=== PATIENT | female | born 1950 | race Caucasian/White ===

== ENCOUNTER 2019-12-27 17:14 | Inpatient (IN) | payer MEDICARE, MEDICAID ==
[~2019-12-27] VITALS: Ht 157.5 cm; Wt 62.2 kg
--- NOTE | 2019-12-27 17:54 | EKG ---
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
--- NOTE | 2019-12-27 17:54 | PHYS DOC ---
Past History Past Medical History: Bipolar, Dementia, Other Additional Past Medical Histor: schizzoaffective disorder Past Surgical History: Appendectomy, Cholecystectomy, Other Additional Past Surgical Histo: unknown Alcohol Use: None Adult General Chief Complaint Chief Complaint: PSYCH EVALUATION.." I have chest pain.. and I am ... I don't know for sure when I am due to have the baby...".. " They did not feed me.. I need to eat something.. now." HPI HPI Patient is a 69 year old female who presents with above hx and complaints of being with chest pain on Lt. side. Pt. relates pain on Lt. is because of her . Pt. relates nothing make the Lt chest wall pain better. . Pt. sent to ED for medical clearance before admit to [facility]. . Pt. per family and care takers pt. has become more difficult to redirect, having delusions and hallucinations, aggressive hostile and combative behaviors. Pt. recently having delusions and hallucinations that she is , seeing " spirts", and that voices telling her what to do. Pt reports that she just had a miscarriage and that her sister ate the baby. Pt relates she is again. Patient has been a resident at [facility] in [facility] since 05/01/17. Pt. primary care is Dr. Radford. No history of falls. No history of travel. No history immunosuppression. Patient does have a history of dementia, bipolar disorder, anxiety, constipation, colonic polyps, insomnia and psychosis. Review of Systems Review of Systems Complaints she needs to eat. Constitutional: Denies fever or chills [] Eyes: Denies change in visual acuity, redness, or eye pain [] HENT: Denies nasal congestion or sore throat [] Respiratory: Denies cough or shortness of breath [] Cardiovascular: No additional information not addressed in HPI []Complaints of Lt sided chest pain related to the . GI: Denies abdominal pain, nausea, vomiting, bloody stools or diarrhea []Complaints of pain. : Denies dysuria or hematuria [] Musculoskeletal: Denies back pain or joint pain [] Integument: Denies rash or skin lesions [] Neurologic: Denies headache, focal weakness or sensory changes [] Endocrine: Denies polyuria or polydipsia [] All other systems were reviewed and found to be within normal limits, except as documented in this note. Family History Family History Not currently available Current Medications Current Medications Med list not sent to ED Allergies Allergies Allergies Coded Allergies Type Severity Reaction Last Updated Verified codeine Allergy Unknown 12/27/19 Yes nicotine Allergy Unknown 12/27/19 Yes Uncoded Allergies Type Severity Reaction Last Updated Verified benodene Allergy Unknown 12/27/19 Physical Exam Physical Exam Constitutional: no acute distress, non-toxic appearance. [] HENT: Normocephalic, atraumatic, bilateral external ears normal, oropharynx moist, no oral exudates, nose normal. Old scar top for Eyes: PERRLA, EOMI, conjunctiva normal, no discharge. [] Neck: Normal range of motion, no tenderness, supple, no stridor. [] Cardiovascular:Heart rate regular rhythm, no murmur [] Lungs & Thorax: Bilateral breath sounds clear to auscultation [] Abdomen: Bowel sounds normal, soft, no tenderness, no masses, no pulsatile masses. [Multiple old surgery scars Skin: Warm, dry, no erythema, no rash. [] Back: No tenderness, no CVA tenderness. [] Extremities: No tenderness, no cyanosis, no clubbing, ROM intact, no edema. No cording appreciated Neurologic: Alert and oriented X 3, normal motor function, normal sensory function, no focal deficits noted. [] Psychologic: Affect anxious, judgement obviously impaired,, mood normal. [] Current Patient Data Vital Signs Vital Signs Date Time Temp Pulse Resp B/P (MAP) Pulse Ox O2 Delivery O2 Flow Rate FiO2 12/27/19 17:33 98.3 83 18 124/77 (93 91 Room Air EKG EKG My interpretation of EKG shows a sinus rhythm at 82 bpm better. Does have a left axis deviation and findings consistent with anterior fascicular block. No findings of acute STEMI with contralateral changes.[] Radiology/Procedures Radiology/Procedures [][address] [address] IMAGING REPORT Signed PATIENT: VIVIEN MAN MACCOUNT: [id number] : 1950 LOCATION: [facility] AGE: 69 SEX: F EXAM STATUS: ADM IN ORD. PHYSICIAN: IKE JIMENEZ MD REASON: dyspnea PROCEDURE: PORTABLE CHEST 1V AP portable chest radiograph 12/27/2019 Clinical History: Shortness of breath. An AP erect portable digital radiograph of the chest was obtained. No previous studies are available for comparison. The patient is slightly rotated to the left. The cardiac silhouette is mildly enlarged. The thoracic aorta is tortuous. Atherosclerotic calcification of the thoracic aorta is seen. A 5 cm masslike opacity is seen involving the right lower lobe which could represent fluid within the fissure (pseudotumor) versus a solid mass lesion. This could be further evaluated with a CT scan of the chest with contrast. No acute pulmonary infiltrate is seen. No pneumothorax is noted. Small calcified left hilar lymph nodes are seen. There is diffuse osteopenia of the visualized bony structures. Degenerative changes are seen involving the thoracic spine and both shoulders. IMPRESSION: 5 cm masslike opacity is seen in the right lower lobe. Further evaluation with a CT scan of the chest with contrast is recommended. Electronically signed by: Juna Colbert MD (12/27/2019 9:39 PM) [id number] DICTATED AND SIGNED BY: JUAN COLBERT MD DATE: 12/27/192138 CC: LI MADDOX MD; IKE JIMENEZ MD; WILBER GARCIA DO ~ Course & Med Decision Making Course & Med Decision Making Pertinent Labs and Imaging studies reviewed. (See chart for details) Patient to be admitted to Dr. Maddox, consults to Dr. Nelson for medical issuses. CT Head and Chest pending at time of admission. Heart Score= 2 Impression: 1. Mental Status Change 2. Delusions and Hallucinations 3. Hx. Bipolar with Psychotic Features 4. Schizoaffective Disorder 5. Dementia 6. Hx recent Aggressive, Hostile and Combative Behaviors. 7. Chest Pain Lt. 8. Chest Mass Rt. lower- / middle lobe +/- 5cm [] Dragon Disclaimer Dragon Disclaimer This electronic medical record was generated, in whole or in part, using a voice recognition dictation system. Departure Departure: Disposition: 01 HOME/RESIDENCE PRIOR TO ADM Condition: STABLE Dragon Disclaimer This chart was dictated in whole or in part using Voice Recognition software in a busy, high-work load, and often noisy Emergency Department environment. It may contain unintended and wholly unrecognized errors or omissions. IKE JIMENEZ MD Dec 27, 2019 17:54
[2019-12-27 18:16] LABS: BASO # 0.1 x10^3/uL (0.0-0.2); BASO % 1 % (0-3); EOS # 0.2 x10^3/uL (0.0-0.7); EOS % 2 % (0-3); HEMATOCRIT 42.3 % (36.0-47.0); HEMOGLOBIN 13.7 g/dL (12.0-15.5); LYMPH % 29 % (24-48); MEAN CORPUSCULAR HEMOGLOBIN 30 pg (25-35); MEAN CORPUSCULAR HGB CONC 32 g/dL (31-37); MEAN CORPUSCULAR VOLUME 92 fL (79-100); MONO # 0.7 x10^3/uL (0.0-1.1); MONO % 10 % (0-9); NEUT % 58 % (31-73); PLATELET COUNT 298 x10^3/uL (140-400); RED BLOOD COUNT 4.59 x10^6/uL (3.50-5.40); RED CELL DISTRIBUTION WIDTH 15.1 % (11.5-14.5); WHITE BLOOD COUNT 6.9 x10^3/uL (4.0-11.0)
[2019-12-27 18:18] LABS: CALCIUM 9.3 mg/dL (8.5-10.1); CREATININE 0.5 mg/dL (0.6-1.0); GFR 122.3; POTASSIUM 3.8 mmol/L (3.5-5.1)
[2019-12-27 18:19] LABS: BARBITURATES NEG (NEG); BENZODIAZEPINES NEG (NEG); CANNABINOIDS NEG (NEG); COCAINE NEG (NEG); METHADONE NEG (NEG); OPIATES NEG (NEG); PHENCYCLIDINE NEG (NEG)
[2019-12-27 18:21] LABS: AMORPHOUS SEDIMENT,UR PRESENT /HPF; BACTERIA,URINE FEW /HPF (0-FEW); BILIRUBIN,URINE NEG (NEG); CLARITY,URINE CLOUDY; COLOR,URINE YELLOW; GLUCOSE,URINE NEG (NEG); NITRITE,URINE NEG (NEG); SQUAMOUS EPITHELIAL CELL,UR MOD /LPF
[2019-12-27 18:23] LABS: AMPHETAMINE/METHAMPHETAMINE NEG (NEG)
[2019-12-27 18:31] LABS: ALBUMIN 3.5 g/dL (3.4-5.0); DIRECT BILIRUBIN 0.1 mg/dL (0.0-0.2); MAGNESIUM 1.9 mg/dL (1.8-2.4); TOTAL BILIRUBIN 0.2 mg/dL (0.2-1.0); TOTAL PROTEIN 7.4 g/dL (6.4-8.2)
[2019-12-27] MEDS ORDERED: MULT-503 PO (18:50)
[2019-12-27] MEDS ORDERED: CHOL200078 PO (18:50)
[2019-12-27] MEDS ORDERED: BUPR-192 PO (18:50)
[2019-12-27] MEDS ORDERED: FLUO40CA2 PO (18:50)
[2019-12-27] MEDS ORDERED: MIDO10TA PO (18:50)
[2019-12-27] MEDS ORDERED: PALI6TAB3 PO (18:50)
[2019-12-27] MEDS ORDERED: PALI234D IM (18:50)
[2019-12-27] MEDS ORDERED: ACET325C6 PO (18:50)
[2019-12-27] MEDS ORDERED: ASPI-612 PO (18:50)
[2019-12-27] MEDS ORDERED: MAGN24003 PO (18:50)
[2019-12-27] MEDS ORDERED: THIA100T57 PO (18:50)
[2019-12-27] MEDS ORDERED: TEMA15CA PO (18:50)
[2019-12-27] MEDS ORDERED: DIVA500T4 PO (18:50)
[2019-12-27] MEDS ORDERED: OLAN10TA9 PO (18:50)
[2019-12-27 19:35] LABS: SEDIMENTATION RATE 18 (0-25)
[2019-12-27 19:53] VITALS: BP 120/78
[2019-12-27] MEDS ORDERED: MAGNESIUM HYDROXIDE 2,400 MG/30 ML ORAL.SUSP. PO PRN ×2 (20:00→22:30)
[2019-12-27] MEDS ORDERED: IOHEXOL 350 MG/ML 100 ML VIAL. IV ONE (20:15)
[2019-12-27] MEDS: TEMAZEPAM 15 MG CAPSULE PO SCH (20:28)
[2019-12-27] MEDS: OLANZapine 10 MG TABLET PO SCH (20:28)
[2019-12-27] MEDS: PALIPERIDONE 6 MG TAB.ER.24. PO SCH (20:28)
[2019-12-27] MEDS: DIVALPROEX ER 500 MG TAB.ER.24H PO SCH (20:29)
--- NOTE | 2019-12-27 21:36 | PDOC ---
Exam Note: Norris Note: Please also refer to the separate dictated note~for this date of service dictated separately. Discussed the patient with Nursing staff reviewed the chart.~Reviewed interim history and current functioning. Reviewed vital signs,~Labs/ Radiology~and current medications noted below. Continue current treatment with the changes noted in the dictated addendum note Assessment: Vital Signs/I&O: Vital Signs Date Time Temp Pulse Resp B/P (MAP) Pulse Ox O2 Delivery O2 Flow Rate FiO2 12/27/19 19:53 97.3 83 18 120/78 (92) 91 12/27/19 18:47 Room Air Labs: Laboratory Tests Test 12/27/19 17:45 12/27/19 18:00 Urine Collection Type Unknown Urine Color Yellow Urine Clarity Cloudy Urine pH 7.0 Urine Specific [place] 1.020 Urine Protein Neg (NEG-TRACE) Urine Glucose (UA) Neg mg/dL (NEG) Urine Ketones (Stick) Neg mg/dL (NEG) Urine Blood Neg (NEG) Urine Nitrite Neg (NEG) Urine Bilirubin Neg (NEG) Urine Urobilinogen Dipstick 1.0 mg/dL (0.2 mg/dL) Urine Leukocyte Esterase Neg (NEG) Urine RBC 1-2 /HPF (0-2) Urine WBC 1-4 /HPF (0-4) Urine Squamous Epithelial Cells Mod /LPF Urine Amorphous Sediment Present /HPF Urine Bacteria Few /HPF (0-FEW) Urine Opiates Screen Neg (NEG) Urine Methadone Screen Neg (NEG) Urine Barbiturates Neg (NEG) Urine Phencyclidine Screen Neg (NEG) Urine Amphetamine/Methamphetamine Neg (NEG) Urine Benzodiazepines Screen Neg (NEG) Urine Cocaine Screen Neg (NEG) Urine Cannabinoids Screen Neg (NEG) Urine Ethyl Alcohol Neg (NEG) White Blood Count 6.9 x10^3/uL (4.0-11.0) Red Blood Count 4.59 x10^6/uL (3.50-5.40) Hemoglobin 13.7 g/dL (12.0-15.5) Hematocrit 42.3 % (36.0-47.0) Mean Corpuscular Volume 92 fL (79-100) Mean Corpuscular Hemoglobin 30 pg (25-35) Mean Corpuscular Hemoglobin Concent 32 g/dL (31-37) Red Cell Distribution Width 15.1 % (11.5-14.5) H Platelet Count 298 x10^3/uL (140-400) Neutrophils (%) (Auto) 58 % (31-73) Lymphocytes (%) (Auto) 29 % (24-48) Monocytes (%) (Auto) 10 % (0-9) H Eosinophils (%) (Auto) 2 % (0-3) Basophils (%) (Auto) 1 % (0-3) Neutrophils # (Auto) 4.0 x10^3uL (1.8-7.7) Lymphocytes # (Auto) 2.0 x10^3/uL (1.0-4.8) Monocytes # (Auto) 0.7 x10^3/uL (0.0-1.1) Eosinophils # (Auto) 0.2 x10^3/uL (0.0-0.7) Basophils # (Auto) 0.1 x10^3/uL (0.0-0.2) Erythrocyte Sedimentation Rate 18 (0-25) Prothrombin Time 10.0 SEC (9.4-11.4) Prothrombin Time INR 1.0 (0.9-1.1) Activated Partial Thromboplast Time 28 SEC (23-33) D-Dimer (Radha) 0.47 mg/L (0.00-0.50) Sodium Level 142 mmol/L (136-145) Potassium Level 3.8 mmol/L (3.5-5.1) Chloride Level 105 mmol/L (98-107) Carbon Dioxide Level 26 mmol/L (21-32) Anion Gap 11 (6-14) Blood Urea Nitrogen 13 mg/dL (7-20) Creatinine 0.5 mg/dL (0.6-1.0) L Estimated GFR (Cockcroft-Gault) 122.3 Glucose Level 90 mg/dL (70-99) Calcium Level 9.3 mg/dL (8.5-10.1) Magnesium Level 1.9 mg/dL (1.8-2.4) Total Bilirubin 0.2 mg/dL (0.2-1.0) Direct Bilirubin 0.1 mg/dL (0.0-0.2) Aspartate Amino Transferase (AST) 17 U/L (15-37) Alanine Aminotransferase (ALT) 22 U/L (14-59) Alkaline Phosphatase 69 U/L (46-116) Creatine Kinase 56 U/L (26-192) Troponin I Quantitative < 0.017 ng/mL (0-0.055) MJ-Pvx-O-Type Natriuretic Peptide 76 pg/mL (0-124) Total Protein 7.4 g/dL (6.4-8.2) Albumin 3.5 g/dL (3.4-5.0) Lipase 174 U/L (73-393) Current Medications: Meds: Current Medications Medications (Trade) Dose Ordered Sig/Liv Route PRN Reason Start Time Stop Time Status Last Admin Dose Admin Divalproex Sodium (Depakote Er) 1,000 mg QHS PO 12/27/19 21:00 12/27/19 20:29 Temazepam (Restoril) 15 mg QHS PO 12/27/19 21:00 12/27/19 20:28 Paliperidone (Invega) 6 mg BID PO 12/27/19 21:00 12/27/19 20:28 Olanzapine (ZyPREXA) 10 mg BID PO 12/27/19 21:00 12/27/19 20:28 I have reviewed the current psychotropics carefully including drug interactions. Risk benefit ratio favors no change other than as noted in my dictated progress note. LI CABRERA MD Dec 27, 2019 21:36
--- NOTE | 2019-12-27 21:42 | RAD ---
AP portable chest radiograph 12/27/2019 Clinical History: Shortness of breath. An AP erect portable digital radiograph of the chest was obtained. No previous studies are available for comparison. The patient is slightly rotated to the left. The cardiac silhouette is mildly enlarged. The thoracic aorta is tortuous. Atherosclerotic calcification of the thoracic aorta is seen. A 5 cm masslike opacity is seen involving the right lower lobe which could represent fluid within the fissure (pseudotumor) versus a solid mass lesion. This could be further evaluated with a CT scan of the chest with contrast. No acute pulmonary infiltrate is seen. No pneumothorax is noted. Small calcified left hilar lymph nodes are seen. There is diffuse osteopenia of the visualized bony structures. Degenerative changes are seen involving the thoracic spine and both shoulders. IMPRESSION: 5 cm masslike opacity is seen in the right lower lobe. Further evaluation with a CT scan of the chest with contrast is recommended. Electronically signed by: Juan Colbert MD (12/27/2019 9:39 PM) [id number]
[2019-12-27] MEDS ORDERED: METHYL SALICYLATE/MENTHOL TOPICAL OINTMENT 57GM TUBE. TP PRN (22:30)
[2019-12-27] MEDS ORDERED: ACETAMINOPHEN 325 MG TABLET PO PRN (22:30)
[2019-12-28 05:36] VITALS: BP 118/75
[2019-12-28 08:29] LABS: BASO % 1 % (0-3); EOS # 0.2 x10^3/uL (0.0-0.7); EOS % 3 % (0-3); HEMATOCRIT 44.2 % (36.0-47.0); HEMOGLOBIN 14.4 g/dL (12.0-15.5); LYMPH # 1.7 x10^3/uL (1.0-4.8); LYMPH % 28 % (24-48); MEAN CORPUSCULAR HEMOGLOBIN 30 pg (25-35); MEAN CORPUSCULAR HGB CONC 33 g/dL (31-37); MEAN CORPUSCULAR VOLUME 92 fL (79-100); MONO # 0.6 x10^3/uL (0.0-1.1); MONO % 9 % (0-9); NEUT # 3.7 x10^3uL (1.8-7.7); NEUT % 60 % (31-73); PLATELET COUNT 285 x10^3/uL (140-400); RED CELL DISTRIBUTION WIDTH 15.1 % (11.5-14.5); WHITE BLOOD COUNT 6.1 x10^3/uL (4.0-11.0)
[2019-12-28] MEDS: ASPIRIN ENTERIC COATED 81 MG TABLET.DR. PO SCH (08:36)
[2019-12-28] MEDS: OLANZapine 10 MG TABLET PO SCH ×2 (08:36→19:42)
[2019-12-28] MEDS: CHOLECALCIFEROL (VITAMIN D3) 1,000 UNIT TABLET PO SCH (08:36)
[2019-12-28] MEDS: PALIPERIDONE 6 MG TAB.ER.24. PO SCH ×2 (08:37→19:42)
[2019-12-28] MEDS: THIAMINE 100 MG TABLET. PO SCH (08:37)
[2019-12-28] MEDS: MULTIVITAMIN with MINERAL TABLET. PO SCH (08:37)
[2019-12-28] MEDS: MIDODRINE 5 MG TABLET PO SCH ×2 (08:37→17:00)
[2019-12-28] MEDS: FLUoxetine HCL 20 MG CAPSULE PO SCH (08:37)
[2019-12-28] MEDS: buPROPion XL 150 MG TAB.ER.24H PO SCH (08:37)
[2019-12-28 08:45] LABS: ALBUMIN 3.3 g/dL (3.4-5.0); ALBUMIN/GLOBULIN RATIO 0.8 (1.0-1.7); ALK PHOS 62 U/L (46-116); ALT (SGPT) 18 U/L (14-59); ANION GAP 11 (6-14); AST (SGOT) 14 U/L (15-37); BLOOD UREA NITROGEN 10 mg/dL (7-20); BUN/CREATININE RATIO 20 (6-20); CALCIUM 9.1 mg/dL (8.5-10.1); CARBON DIOXIDE 27 mmol/L (21-32); CHLORIDE 107 mmol/L (98-107); CREATININE 0.5 mg/dL (0.6-1.0); GFR 122.3; GLUCOSE 82 mg/dL (70-99); POTASSIUM 3.8 mmol/L (3.5-5.1); SODIUM 145 mmol/L (136-145); TOTAL BILIRUBIN 0.3 mg/dL (0.2-1.0); TOTAL PROTEIN 7.5 g/dL (6.4-8.2)
[2019-12-28 08:54] LABS: VAL ACID 49 mcg/mL (50-100)
[2019-12-28 11:08] LABS: THYROXINE 9.1 ug/dL (4.5-12.0)
[2019-12-28] MEDS ORDERED: IOHEXOL 350 MG/ML 100 ML VIAL. IV ONE (13:45)
[2019-12-28 15:42] VITALS: BP 108/69
--- NOTE | 2019-12-28 18:36 | RAD ---
EXAM: CT Pulmonary Angiogram INDICATION: Chest pain TECHNIQUE: Multi-detector row images were acquired from the thoracic inlet through the upper abdomen with the use of IV contrast. Sagittal and coronal images were acquired from the transaxial data. MIP images of the pulmonary arteries were obtained. All CT scans performed at this facility utilize dose optimization techniques as appropriate to the exam, including the following: Automated exposure control and adjustment of the mA and/or KV according to patient size (this includes techniques or standardized protocols for targeted exams where dose is indication/reason for exam). IV CONTRAST: Administered COMPARISON: Chest x-ray 12/27/2019 FINDINGS: PULMONARY ARTERIES: No pulmonary emboli are identified. CARDIOVASCULAR: 4 vessel arch with normal variant arch origin of the left vertebral artery. Normal caliber thoracic aorta with scattered arch calcifications including calcifications in the vicinity of the origin of the left vertebral artery. Mildly enlarged heart size. No significant pericardial effusion. . MEDIASTINUM & MILI: No adenopathy or masses. Calcified mediastinal left hilar lymph nodes. LUNGS: Superior segment right lower lobe 3 mm spiculated nodule with mild retraction of the major fissure (image 33 of axial series 3). Stellate 6 mm groundglass opacity in the lingula (image 45 of 89 series 3). A 4.6 x 5.1 x 4.1 cm soft tissue mass in the right middle lobe is confirmed from the plain film study of the previous day. PLEURAL SPACE: No pleural effusions or pneumothorax. OSSEOUS & SOFT TISSUE: Unremarkable ABDOMEN: The visualized portions of the upper abdomen are unremarkable. IMPRESSION: 1. No pulmonary emboli. 2. Large 5 cm soft tissue mass in the right middle lobe of concern for primary lung malignancy 3. Additional, smaller pulmonary nodules bilaterally that merit attention on follow-up EXAM: CT Head without IV contrast INDICATION: Mental status change TECHNIQUE: Multi-detector row CT images were obtained of the head without the use of IV contrast. All CT scans performed at this facility utilize dose optimization techniques as appropriate to the exam, including the following: Automated exposure control and adjustment of the mA and/or KV according to patient size (this includes techniques or standardized protocols for targeted exams where dose is indication/reason for exam). COMPARISON: None FINDINGS: BRAIN PARENCHYMA: No evidence of acute intraparenchymal hemorrhage or infarct. Mild generalized parenchymal volume loss and subtle white matter low density compatible chronic ischemic microvascular change. VENTRICLES & EXTRA-AXIAL SPACES: Ventricles are within normal limits. Basilar cisterns are patent. No pathologic extra-axial fluid collection or mass. ORBITS: Orbital contents are unremarkable. SINUSES: Visualized paranasal sinuses and mastoid air cells are clear. OSSEOUS & SOFT TISSUES: Calvarium and skull base are intact. IMPRESSION: No acute intracranial pathology. Electronically signed by: Dony Cameron MD (12/28/2019 6:33 PM) [facility]
[2019-12-28] MEDS: TEMAZEPAM 15 MG CAPSULE PO SCH (19:42)
[2019-12-28] MEDS: DIVALPROEX ER 500 MG TAB.ER.24H PO SCH (19:42)
[2019-12-29 01:06] LABS: HEMOGLOBIN A1C 5.6 % (4.8-5.6)
--- NOTE | 2019-12-29 01:21 | HP ---
ADMIT DATE: 12/27/2019 This note covers elements not covered in my initial note of 12/28/2019. IDENTIFYING DATA: The patient is a 69-year-old female referred to us from [facility] in [place], [place] referred by Dr. Radford, her primary care physician and Dr. Mae, her psychiatrist on account of increasing psychotic symptoms. The patient was admitted through the Emergency Room at [facility]. At the snf, she was exit seeking, stating that her sister is trying to sacrifice her. She was stating that she had a miscarriage and her sister is going to eat the baby and also stating that she has spirit vision and can see things that the staff cannot. This is within the context of her diagnosis of schizoaffective disorder, chronic with acute exacerbation and psychotic features. She had failed outpatient psychiatric interventions resulting in this referral. CHIEF COMPLAINT: "Yes, that is true." The patient responded after I went over the presenting symptoms prompting her referral. HISTORY OF PRESENT ILLNESS: The patient reportedly has a long history of schizoaffective disorder, bipolar type, with psychotic features. She has been residing at the above snf for about 3 to 3-1/2 years according to her and states she just got last week and she bought a house with her son and her last week and is going to live in the house with her son. She remains quite disorganized. She has a public sccm administrator guardian, Kaur Blanco who facilitated this hospitalization. She has had sleep and appetite changes. No active suicidal or homicidal ideation. PAST PSYCHIATRIC HISTORY: As above. MEDICAL HISTORY: Positive for asthma, colon polyps, short-term memory deficits. Since admission, she had a chest x-ray, which showed a mass in the left lung and CT had confirmed this. We will defer to Dr. Nelson for this with the question of lung cancer. ACCU-CHEKS: None. DIET: Regular. Takes medications whole, ambulates independently. ALLERGIES: CODEINE, NICOTINE, ____ and STRAWBERRIES. FAMILY HISTORY: Noncontributory. 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 No physical, sexual or elder abuse history is noted. She is not known to be a perpetrator. She is a former smoker. REACTION TO HOSPITALIZATION: The patient accepting of it. ASSETS: Supportive, living at the snf. MENTAL STATUS EXAMINATION: The patient was seen individually evening of 12/28/2019. She was aware it is December 2019, knew the president was president Isaiah, able to do 2 steps on serial 7's. 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 Abstraction fair, computation impaired, language function intact, attention span short. Mood and affect is somewhat labile, at times withdrawn. No active suicidal or homicidal ideation. LABORATORY DATA: Reviewed. IMPRESSION: Schizoaffective disorder, bipolar type, chronic with acute exacerbation and psychotic symptoms and anxiety disorder, unspecified; impulse control disorder, unspecified. Rest as above including the new finding of possible lesion in the left lung on CT chest. Rest is unchanged as above. PLAN: Admit to Geropsychiatry Unit at [facility]. I will see the patient daily individually from a psychiatric standpoint. Medical followup per Dr. Nelson. Continue the patient on Wellbutrin XL 150 mg a day, Depakote ER 1000 mg at bedtime. Check a valproic acid level. Maintain fluoxetine 40 mg a day. She is on Invega ER 5 mg b.i.d. and Invega IM 234 mg monthly, Restoril 15 mg at bedtime, Zyprexa 10 mg b.i.d. She remains quite psychotic despite the two of her atypical antipsychotics and we will go ahead and change the Zyprexa to Risperdal 0.5 mg at bedtime. We will make further adjustments as clinically indicated. Estimated length of stay 10-12 days. DISPOSITION PLAN: Back to snf when stable. MAN Adonis CABRERA MD DR: FRED/minnie JOB#: [id number] / [id number]
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
[2019-12-29 06:02] VITALS: BP 98/65
[2019-12-29] MEDS: PALIPERIDONE 6 MG TAB.ER.24. PO SCH ×2 (08:09→21:10)
[2019-12-29] MEDS: MULTIVITAMIN with MINERAL TABLET. PO SCH (08:09)
[2019-12-29] MEDS: buPROPion XL 150 MG TAB.ER.24H PO SCH (08:10)
[2019-12-29] MEDS: FLUoxetine HCL 20 MG CAPSULE PO SCH (08:10)
[2019-12-29] MEDS: CHOLECALCIFEROL (VITAMIN D3) 1,000 UNIT TABLET PO SCH (08:10)
[2019-12-29] MEDS: THIAMINE 100 MG TABLET. PO SCH (08:10)
[2019-12-29] MEDS: MIDODRINE 5 MG TABLET PO SCH ×2 (08:10→17:00)
[2019-12-29] MEDS: ASPIRIN ENTERIC COATED 81 MG TABLET.DR. PO SCH (08:10)
[2019-12-29 16:04] VITALS: BP 118/82
[2019-12-29] MEDS: risperiDONE 0.25 MG TABLET. PO SCH (21:09)
[2019-12-29] MEDS: TEMAZEPAM 15 MG CAPSULE PO SCH (21:09)
[2019-12-29] MEDS: DIVALPROEX ER 500 MG TAB.ER.24H PO SCH (21:10)
--- NOTE | 2019-12-29 21:44 | PDOC ---
Exam Note: Norris Note: This is a late entry for DOS 12/28/2019. VS - Last 72 Hours, by Label Date Time Temp Pulse Resp B/P (MAP) Pulse Ox O2 Delivery O2 Flow Rate FiO2 12/29/19 17:00 77 118/82 12/29/19 16:04 98.0 77 20 118/82 (94) 98 12/29/19 08:10 73 98/65 12/29/19 06:02 97.3 73 16 98/65 (76) 94 Room Air 12/28/19 17:00 71 108/69 12/28/19 15:42 98.2 71 18 108/69 (82) 94 12/28/19 08:37 73 118/75 12/28/19 05:36 97.3 73 16 118/75 (89) 92 12/27/19 19:53 97.3 83 18 120/78 (92) 91 12/27/19 18:47 87 18 126/69 (88) 91 Room Air 12/27/19 17:33 98.3 83 18 124/77 (93) 91 Room Air Please also refer to the separate dictated note~for this date of service dictated separately.~Patient seen individually. Discussed the patient with Nursing staff reviewed the chart.~Reviewed interim history and current functioning. Reviewed vital signs,~Labs/ Radiology~and current medications noted below. Continue current treatment with the changes noted in the dictated addendum note Assessment: Vital Signs/I&O: Vital Signs Date Time Temp Pulse Resp B/P (MAP) Pulse Ox O2 Delivery O2 Flow Rate FiO2 12/29/19 17:00 77 118/82 12/29/19 16:04 98.0 20 98 12/29/19 06:02 Room Air I & O 12/28/19 12/28/19 12/29/19 15:00 23:00 07:00 Intake Total 720 ml 480 ml Balance 720 ml 480 ml Current Medications: Meds: Current Medications Medications (Trade) Dose Ordered Sig/Liv Route PRN Reason Start Time Stop Time Status Last Admin Dose Admin Risperidone (RisperDAL) 0.5 mg HS PO 12/29/19 21:00 12/29/19 21:09 I have reviewed the current psychotropics carefully including drug interactions. Risk benefit ratio favors no change other than as noted in my dictated progress note. Diagnosis: Problems: (1) Anxiety disorder (2) Impulse control disorder (3) Schizoaffective disorder, chronic condition with acute exacerbation (4) Personality disorder in adult LI CABRERA MD Dec 29, 2019 21:44
--- NOTE | 2019-12-29 21:57 | PDOC ---
Exam Note: Norris Note: Please also refer to the separate dictated note~for this date of service dictated separately.~Patient seen individually. Discussed the patient with Nursing staff reviewed the chart.~Reviewed interim history and current functioning. Reviewed vital signs,~Labs/ Radiology~and current medications noted below. Continue current treatment with the changes noted in the dictated addendum note Assessment: Vital Signs/I&O: Vital Signs Date Time Temp Pulse Resp B/P (MAP) Pulse Ox O2 Delivery O2 Flow Rate FiO2 12/29/19 17:00 77 118/82 12/29/19 16:04 98.0 20 98 12/29/19 06:02 Room Air I & O 12/28/19 12/28/19 12/29/19 15:00 23:00 07:00 Intake Total 720 ml 480 ml Balance 720 ml 480 ml Current Medications: Meds: Current Medications Medications (Trade) Dose Ordered Sig/Liv Route PRN Reason Start Time Stop Time Status Last Admin Dose Admin Risperidone (RisperDAL) 0.5 mg HS PO 12/29/19 21:00 12/29/19 21:09 I have reviewed the current psychotropics carefully including drug interactions. Risk benefit ratio favors no change other than as noted in my dictated progress note. Diagnosis: Problems: (1) Anxiety disorder (2) Impulse control disorder (3) Schizoaffective disorder, chronic condition with acute exacerbation (4) Personality disorder in adult LI CABRERA MD Dec 29, 2019 21:57
[2019-12-30 06:36] VITALS: BP 105/65
[2019-12-30] MEDS: PALIPERIDONE 6 MG TAB.ER.24. PO SCH ×2 (09:13→19:40)
[2019-12-30] MEDS: ASPIRIN ENTERIC COATED 81 MG TABLET.DR. PO SCH (09:13)
[2019-12-30] MEDS: CHOLECALCIFEROL (VITAMIN D3) 1,000 UNIT TABLET PO SCH (09:13)
[2019-12-30] MEDS: FLUoxetine HCL 20 MG CAPSULE PO SCH (09:13)
[2019-12-30] MEDS: MULTIVITAMIN with MINERAL TABLET. PO SCH (09:14)
[2019-12-30] MEDS: MIDODRINE 5 MG TABLET PO SCH ×2 (09:14→17:42)
[2019-12-30] MEDS: buPROPion XL 150 MG TAB.ER.24H PO SCH (09:14)
[2019-12-30] MEDS: THIAMINE 100 MG TABLET. PO SCH (09:14)
[2019-12-30 16:10] VITALS: BP 112/77
[2019-12-30] MEDS: DIVALPROEX ER 250 MG TAB.ER.24H. PO SCH (19:40)
[2019-12-30] MEDS: DIVALPROEX ER 500 MG TAB.ER.24H PO SCH (19:41)
[2019-12-30] MEDS: risperiDONE 0.25 MG TABLET. PO SCH (19:42)
[2019-12-30] MEDS: TEMAZEPAM 15 MG CAPSULE PO SCH (19:42)
--- NOTE | 2019-12-30 21:24 | PDOC ---
Exam Note: Norris Note: Please also refer to the separate dictated note~for this date of service dictated separately.~Patient seen individually. Discussed the patient with Nursing staff reviewed the chart.~Reviewed interim history and current functioning. Reviewed vital signs,~Labs/ Radiology~and current medications noted below. Continue current treatment with the changes noted in the dictated addendum note Assessment: Vital Signs/I&O: Vital Signs Date Time Temp Pulse Resp B/P (MAP) Pulse Ox O2 Delivery O2 Flow Rate FiO2 12/30/19 17:42 88 112/77 12/30/19 16:10 97.7 18 92 12/29/19 06:02 Room Air I & O 12/29/19 12/29/19 12/30/19 15:00 23:00 07:00 Intake Total 720 ml 240 ml 240 ml Balance 720 ml 240 ml 240 ml Current Medications: Meds: Current Medications Medications (Trade) Dose Ordered Sig/Liv Route PRN Reason Start Time Stop Time Status Last Admin Dose Admin Divalproex Sodium (Depakote Er) 1,000 mg QHS PO 12/30/19 21:00 12/30/19 19:41 Divalproex Sodium (Depakote Er) 250 mg HS PO 12/30/19 21:00 12/30/19 19:40 I have reviewed the current psychotropics carefully including drug interactions. Risk benefit ratio favors no change other than as noted in my dictated progress note. Diagnosis: Problems: (1) Anxiety disorder (2) Impulse control disorder (3) Schizoaffective disorder, chronic condition with acute exacerbation (4) Personality disorder in adult LI CABRERA MD Dec 30, 2019 21:24
--- NOTE | 2019-12-31 02:26 | PN ---
DATE: 12/29/2019 PSYCHIATRIC PROGRESS NOTE This late entry of 12/29/2019 covers elements not covered in my initial note. SUBJECTIVE: I met with the patient in the evening of 12/29/2019. Per nursing report, the patient slept 6-3/4 hours previous night. She does have lung mass on CT chest on the right side. CT head is noncontributory. We will defer to Dr. Nelson. I reviewed patient with EVELIO Nunez. REVIEW OF SYSTEMS: No CV, , pulmonary, eye, ENT system symptoms on review. MENTAL STATUS EXAM: Reasonably oriented. Speech has some latency, coherent, often responses monosyllabic. Abstraction fair, computation impaired, language function intact. Mood and affect somewhat withdrawn, less paranoid. LABORATORY DATA: Reviewed. IMPRESSION: Unchanged from initial note. PLAN: No change from initial note. Zyprexa was changed to Risperdal. Maintain Depakote, Wellbutrin, fluoxetine, Invega at current dosage. Adjust further as clinically indicated. MAN Adonis CABRERA MD DR: FRED/minnie JOB#: [id number] / [id number]
[2019-12-31 05:59] VITALS: BP 95/65
[2019-12-31] MEDS: MULTIVITAMIN with MINERAL TABLET. PO SCH (08:36)
[2019-12-31] MEDS: FLUoxetine HCL 20 MG CAPSULE PO SCH (08:36)
[2019-12-31] MEDS: buPROPion XL 150 MG TAB.ER.24H PO SCH (08:36)
[2019-12-31] MEDS: ASPIRIN ENTERIC COATED 81 MG TABLET.DR. PO SCH (08:36)
[2019-12-31] MEDS: PALIPERIDONE 6 MG TAB.ER.24. PO SCH ×2 (08:36→20:32)
[2019-12-31] MEDS: THIAMINE 100 MG TABLET. PO SCH (08:36)
[2019-12-31] MEDS: MIDODRINE 5 MG TABLET PO SCH ×2 (08:37→17:59)
[2019-12-31] MEDS: CHOLECALCIFEROL (VITAMIN D3) 1,000 UNIT TABLET PO SCH (08:37)
--- NOTE | 2019-12-31 13:31 | PN ---
DATE: 12/31/2019 PSYCHIATRIC PROGRESS NOTE This late entry 12/31/2019, covers the elements not covered in my initial note. SUBJECTIVE: I met with the patient evening of 12/31/2019. Per EVELIO Swartz, the patient slept 7-1/4 hours previous night. She has a flat affect. Compliant with medications, less delusional. She does have lung mass, right side. Defer to Dr. Nelson. REVIEW OF SYSTEMS: No CV, , pulmonary, eye system symptoms on review. MENTAL STATUS EXAM: Reasonably oriented. Speech is coherent, has some latency. Abstraction fair, computation impaired, language function intact, attention span short. Mood and affect somewhat withdrawn. LABORATORY DATA: Reviewed. IMPRESSION: Schizoaffective disorder, bipolar type, mixed with psychotic features; anxiety disorder, unspecified; delusional disorder. PLAN: Increase Depakote ER from 1000 mg at bedtime to 1250 mg at bedtime. Check CBC, CMP, valproic acid level in 3 days. Valproic acid level currently is 49, subtherapeutic on Depakote ER 1000 mg at bedtime. Continue fluoxetine, Risperdal, Wellbutrin along with oral Invega and Invega Sustenna and temazepam. Zyprexa was changed to Risperdal. LI CABRERA MD DR: FRED/minnie JOB#: [id number] / [id number]
[2019-12-31 15:48] VITALS: BP 127/88
[2019-12-31] MEDS: TEMAZEPAM 15 MG CAPSULE PO SCH (20:28)
[2019-12-31] MEDS: DIVALPROEX ER 500 MG TAB.ER.24H PO SCH (20:28)
[2019-12-31] MEDS: DIVALPROEX ER 250 MG TAB.ER.24H. PO SCH (20:29)
[2019-12-31] MEDS: risperiDONE 0.25 MG TABLET. PO SCH (20:29)
--- NOTE | 2019-12-31 21:17 | PDOC ---
Exam Note: Norris Note: Please also refer to the separate dictated note~for this date of service dictated separately.~Patient seen individually. Discussed the patient with Nursing staff reviewed the chart.~Reviewed interim history and current functioning. Reviewed vital signs,~Labs/ Radiology~and current medications noted below. Continue current treatment with the changes noted in the dictated addendum note Assessment: Vital Signs/I&O: Vital Signs Date Time Temp Pulse Resp B/P (MAP) Pulse Ox O2 Delivery O2 Flow Rate FiO2 12/31/19 17:59 96 127/88 12/31/19 15:48 97.9 18 93 12/29/19 06:02 Room Air I & O 12/30/19 12/30/19 12/31/19 15:00 23:00 07:00 Intake Total 720 ml 240 ml Balance 720 ml 240 ml Current Medications: I have reviewed the current psychotropics carefully including drug interactions. Risk benefit ratio favors no change other than as noted in my dictated progress note. Diagnosis: Problems: (1) Anxiety disorder (2) Impulse control disorder (3) Schizoaffective disorder, chronic condition with acute exacerbation (4) Personality disorder in adult LI CABRERA MD Dec 31, 2019 21:17
[2020-01-01 05:42] VITALS: BP 116/77
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
[2020-01-01] MEDS: PALIPERIDONE 6 MG TAB.ER.24. PO SCH ×2 (08:30→19:48)
[2020-01-01] MEDS: buPROPion XL 150 MG TAB.ER.24H PO SCH (08:30)
[2020-01-01] MEDS: FLUoxetine HCL 20 MG CAPSULE PO SCH (08:30)
[2020-01-01] MEDS: MULTIVITAMIN with MINERAL TABLET. PO SCH (08:30)
[2020-01-01] MEDS: MIDODRINE 5 MG TABLET PO SCH ×2 (08:30→17:51)
[2020-01-01] MEDS: ASPIRIN ENTERIC COATED 81 MG TABLET.DR. PO SCH (08:31)
[2020-01-01] MEDS: THIAMINE 100 MG TABLET. PO SCH (08:31)
[2020-01-01] MEDS: CHOLECALCIFEROL (VITAMIN D3) 1,000 UNIT TABLET PO SCH (08:31)
[2020-01-01 15:52] VITALS: BP 131/82
[2020-01-01] MEDS: DIVALPROEX ER 500 MG TAB.ER.24H PO SCH (19:48)
[2020-01-01] MEDS: TEMAZEPAM 15 MG CAPSULE PO SCH (19:48)
[2020-01-01] MEDS: DIVALPROEX ER 250 MG TAB.ER.24H. PO SCH (19:48)
[2020-01-01] MEDS: risperiDONE 0.25 MG TABLET. PO SCH (19:49)
--- NOTE | 2020-01-01 21:19 | PDOC ---
Exam Note: Norris Note: Please also refer to the separate dictated note~for this date of service dictated separately.~Patient seen individually. Discussed the patient with Nursing staff reviewed the chart.~Reviewed interim history and current functioning. Reviewed vital signs,~Labs/ Radiology~and current medications noted below. Continue current treatment with the changes noted in the dictated addendum note Assessment: Vital Signs/I&O: Vital Signs Date Time Temp Pulse Resp B/P (MAP) Pulse Ox O2 Delivery O2 Flow Rate FiO2 01/01/20 17:51 78 131/82 01/01/20 15:52 98.2 18 92 12/29/19 06:02 Room Air I & O 12/31/19 12/31/19 01/01/20 15:00 23:00 07:00 Intake Total 480 ml 360 ml Balance 480 ml 360 ml Current Medications: I have reviewed the current psychotropics carefully including drug interactions. Risk benefit ratio favors no change other than as noted in my dictated progress note. Diagnosis: Problems: (1) Anxiety disorder (2) Impulse control disorder (3) Schizoaffective disorder, chronic condition with acute exacerbation (4) Personality disorder in adult LI CABRERA MD Jan 01, 2020 21:19
--- NOTE | 2020-01-02 01:29 | PN ---
DATE: 12/31/2019 PSYCHIATRIC PROGRESS NOTE This late entry of 12/31/2019 covers elements not covered in my initial note. SUBJECTIVE: I met with the patient in the evening of 12/31/2019. Per EVELIO Swartz, the patient slept 6-3/4 hours previous night. She has been pleasant, compliant, fairly quiet, but no overt psychotic symptoms noted. REVIEW OF SYSTEMS: No CV, , pulmonary, eye, ENT system symptoms on review. Reliability fair. MENTAL STATUS EXAM: Reasonably oriented. Speech has some latency, coherent, often responses monosyllabic. Abstraction fair, computation impaired, language function intact, attention span short. Mood and affect somewhat withdrawn. LABORATORY DATA: Reviewed. IMPRESSION: Unchanged from initial note. PLAN: We will go ahead and continue current psychotropics, Wellbutrin-XL 150 mg a day, Prozac 40 mg a day, Risperdal 0.5 mg at bedtime, Invega oral and Sustenna, Restoril, Depakote ER 1250 mg a day. Repeat labs level on 01/02/2020. Adjust further as clinically indicated. MAN Adonis CABRERA MD DR: FRED/minnie JOB#: [id number] / [id number]
[2020-01-02 06:07] VITALS: BP 112/80
[2020-01-02 07:27] LABS: BASO % 0 % (0-3); EOS # 0.2 x10^3/uL (0.0-0.7); EOS % 2 % (0-3); HEMATOCRIT 41.6 % (36.0-47.0); HEMOGLOBIN 13.3 g/dL (12.0-15.5); LYMPH # 1.7 x10^3/uL (1.0-4.8); LYMPH % 23 % (24-48); MEAN CORPUSCULAR HEMOGLOBIN 30 pg (25-35); MEAN CORPUSCULAR HGB CONC 32 g/dL (31-37); MEAN CORPUSCULAR VOLUME 93 fL (79-100); MONO # 0.7 x10^3/uL (0.0-1.1); MONO % 9 % (0-9); NEUT # 4.9 x10^3uL (1.8-7.7); NEUT % 66 % (31-73); PLATELET COUNT 257 x10^3/uL (140-400); RED BLOOD COUNT 4.46 x10^6/uL (3.50-5.40); RED CELL DISTRIBUTION WIDTH 15.7 % (11.5-14.5); WHITE BLOOD COUNT 7.5 x10^3/uL (4.0-11.0)
[2020-01-02 07:40] LABS: ALBUMIN 3.4 g/dL (3.4-5.0); ALBUMIN/GLOBULIN RATIO 0.9 (1.0-1.7); ALK PHOS 59 U/L (46-116); ALT (SGPT) 20 U/L (14-59); ANION GAP 7 (6-14); AST (SGOT) 17 U/L (15-37); BLOOD UREA NITROGEN 11 mg/dL (7-20); BUN/CREATININE RATIO 22 (6-20); CALCIUM 8.8 mg/dL (8.5-10.1); CARBON DIOXIDE 30 mmol/L (21-32); CHLORIDE 106 mmol/L (98-107); CREATININE 0.5 mg/dL (0.6-1.0); GFR 122.3; GLUCOSE 77 mg/dL (70-99); POTASSIUM 4.2 mmol/L (3.5-5.1); SODIUM 143 mmol/L (136-145); TOTAL BILIRUBIN 0.3 mg/dL (0.2-1.0); TOTAL PROTEIN 7.4 g/dL (6.4-8.2)
[2020-01-02] MEDS: ASPIRIN ENTERIC COATED 81 MG TABLET.DR. PO SCH (07:49)
[2020-01-02] MEDS: PALIPERIDONE 6 MG TAB.ER.24. PO SCH ×2 (07:49→19:28)
[2020-01-02] MEDS: FLUoxetine HCL 20 MG CAPSULE PO SCH (07:49)
[2020-01-02] MEDS: CHOLECALCIFEROL (VITAMIN D3) 1,000 UNIT TABLET PO SCH (07:49)
[2020-01-02] MEDS: THIAMINE 100 MG TABLET. PO SCH (07:49)
[2020-01-02] MEDS: MIDODRINE 5 MG TABLET PO SCH ×2 (07:50→17:05)
[2020-01-02] MEDS: buPROPion XL 150 MG TAB.ER.24H PO SCH (07:50)
[2020-01-02] MEDS: MULTIVITAMIN with MINERAL TABLET. PO SCH (07:50)
[2020-01-02 07:51] LABS: VAL ACID 99 mcg/mL (50-100)
[2020-01-02 16:15] VITALS: BP 147/89
[2020-01-02] MEDS: DIVALPROEX ER 500 MG TAB.ER.24H PO SCH (19:27)
[2020-01-02] MEDS: DIVALPROEX ER 250 MG TAB.ER.24H. PO SCH (19:27)
[2020-01-02] MEDS: TEMAZEPAM 15 MG CAPSULE PO SCH (19:28)
[2020-01-02] MEDS: risperiDONE 0.25 MG TABLET. PO SCH (19:35)
--- NOTE | 2020-01-02 21:27 | PDOC ---
Exam Note: Norris Note: Please also refer to the separate dictated note~for this date of service dictated separately.~Patient seen individually. Discussed the patient with Nursing staff reviewed the chart.~Reviewed interim history and current functioning. Reviewed vital signs,~Labs/ Radiology~and current medications noted below. Continue current treatment with the changes noted in the dictated addendum note Assessment: Vital Signs/I&O: Vital Signs Date Time Temp Pulse Resp B/P (MAP) Pulse Ox O2 Delivery O2 Flow Rate FiO2 01/02/20 17:05 82 147/89 01/02/20 16:15 97.6 18 94 12/29/19 06:02 Room Air I & O 01/01/20 01/01/20 01/02/20 15:00 23:00 07:00 Intake Total 840 ml 480 ml Balance 840 ml 480 ml Labs: Laboratory Tests Test 01/02/20 07:00 White Blood Count 7.5 x10^3/uL (4.0-11.0) Red Blood Count 4.46 x10^6/uL (3.50-5.40) Hemoglobin 13.3 g/dL (12.0-15.5) Hematocrit 41.6 % (36.0-47.0) Mean Corpuscular Volume 93 fL (79-100) Mean Corpuscular Hemoglobin 30 pg (25-35) Mean Corpuscular Hemoglobin Concent 32 g/dL (31-37) Red Cell Distribution Width 15.7 % (11.5-14.5) H Platelet Count 257 x10^3/uL (140-400) Neutrophils (%) (Auto) 66 % (31-73) Lymphocytes (%) (Auto) 23 % (24-48) L Monocytes (%) (Auto) 9 % (0-9) Eosinophils (%) (Auto) 2 % (0-3) Basophils (%) (Auto) 0 % (0-3) Neutrophils # (Auto) 4.9 x10^3uL (1.8-7.7) Lymphocytes # (Auto) 1.7 x10^3/uL (1.0-4.8) Monocytes # (Auto) 0.7 x10^3/uL (0.0-1.1) Eosinophils # (Auto) 0.2 x10^3/uL (0.0-0.7) Basophils # (Auto) 0.0 x10^3/uL (0.0-0.2) Sodium Level 143 mmol/L (136-145) Potassium Level 4.2 mmol/L (3.5-5.1) Chloride Level 106 mmol/L (98-107) Carbon Dioxide Level 30 mmol/L (21-32) Anion Gap 7 (6-14) Blood Urea Nitrogen 11 mg/dL (7-20) Creatinine 0.5 mg/dL (0.6-1.0) L Estimated GFR (Cockcroft-Gault) 122.3 BUN/Creatinine Ratio 22 (6-20) H Glucose Level 77 mg/dL (70-99) Calcium Level 8.8 mg/dL (8.5-10.1) Total Bilirubin 0.3 mg/dL (0.2-1.0) Aspartate Amino Transferase (AST) 17 U/L (15-37) Alanine Aminotransferase (ALT) 20 U/L (14-59) Alkaline Phosphatase 59 U/L (46-116) Total Protein 7.4 g/dL (6.4-8.2) Albumin 3.4 g/dL (3.4-5.0) Albumin/Globulin Ratio 0.9 (1.0-1.7) L Valproic Acid Level 99 mcg/mL (50-100) Valproic Acid Last Dose Date 01/01/20 Valproic Acid Last Dose Time 2100 Current Medications: I have reviewed the current psychotropics carefully including drug interactions. Risk benefit ratio favors no change other than as noted in my dictated progress note. Diagnosis: Problems: (1) Anxiety disorder (2) Impulse control disorder (3) Schizoaffective disorder, chronic condition with acute exacerbation (4) Personality disorder in adult LI CABRERA MD Jan 02, 2020 21:27
[2020-01-03 06:22] VITALS: BP 105/67
[2020-01-03] MEDS: MIDODRINE 5 MG TABLET PO SCH ×2 (09:14→17:34)
[2020-01-03] MEDS: buPROPion XL 150 MG TAB.ER.24H PO SCH (09:14)
[2020-01-03] MEDS: FLUoxetine HCL 20 MG CAPSULE PO SCH (09:14)
[2020-01-03] MEDS: ASPIRIN ENTERIC COATED 81 MG TABLET.DR. PO SCH (09:15)
[2020-01-03] MEDS: THIAMINE 100 MG TABLET. PO SCH (09:15)
[2020-01-03] MEDS: MULTIVITAMIN with MINERAL TABLET. PO SCH (09:15)
[2020-01-03] MEDS: CHOLECALCIFEROL (VITAMIN D3) 1,000 UNIT TABLET PO SCH (09:15)
[2020-01-03] MEDS: PALIPERIDONE 6 MG TAB.ER.24. PO SCH ×2 (09:16→20:50)
[2020-01-03 16:11] VITALS: BP 118/76
[2020-01-03] MEDS: DIVALPROEX ER 250 MG TAB.ER.24H. PO SCH (20:50)
[2020-01-03] MEDS: DIVALPROEX ER 500 MG TAB.ER.24H PO SCH (20:50)
[2020-01-03] MEDS: risperiDONE 0.25 MG TABLET. PO SCH (20:50)
[2020-01-03] MEDS: TEMAZEPAM 15 MG CAPSULE PO SCH (20:50)
--- NOTE | 2020-01-03 22:38 | PDOC ---
Exam Note: Norris Note: Please also refer to the separate dictated note~for this date of service dictated separately.~Patient seen individually. Discussed the patient with Nursing staff reviewed the chart.~Reviewed interim history and current functioning. Reviewed vital signs,~Labs/ Radiology~and current medications noted below. Continue current treatment with the changes noted in the dictated addendum note Assessment: Vital Signs/I&O: Vital Signs Date Time Temp Pulse Resp B/P (MAP) Pulse Ox O2 Delivery O2 Flow Rate FiO2 01/03/20 17:34 80 118/76 01/03/20 16:11 98.1 18 91 Room Air I & O 01/02/20 01/02/20 01/03/20 15:00 23:00 07:00 Intake Total 240 ml 240 ml 240 ml Balance 240 ml 240 ml 240 ml Current Medications: I have reviewed the current psychotropics carefully including drug interactions. Risk benefit ratio favors no change other than as noted in my dictated progress note. Diagnosis: Problems: (1) Anxiety disorder (2) Impulse control disorder (3) Schizoaffective disorder, chronic condition with acute exacerbation (4) Personality disorder in adult LI CABRERA MD Jan 03, 2020 22:38
--- NOTE | 2020-01-04 03:42 | PN ---
DATE: 01/01/2020 This late entry, 01/01/2020, covers elements not covered in my initial note. SUBJECTIVE: I met with the patient in the evening. Per EVELIO Swartz, the patient slept 7-1/4 hours previous night. She had a good night and day, has been calm, pleasant, in the day room. Less paranoid, psychotic, still withdrawn. REVIEW OF SYSTEMS: No CV, , pulmonary, eye system symptoms on review. MENTAL STATUS EXAM: Oriented reasonably. Speech has some latency, often responses monosyllabic. Abstraction fair, computation impaired, language function intact, attention span short. Mood and affect withdrawn, less paranoid, psychotic. LABORATORY DATA: Reviewed. IMPRESSION: Unchanged from initial note. PLAN: No change from initial note. MAN Adonis ACBRERA MD DR: FRED/minnie JOB#: [id number] / [id number]
--- NOTE | 2020-01-04 04:06 | PN ---
DATE: 01/02/2020 PSYCHIATRIC PROGRESS NOTE This late entry, 01/02/2020, covers elements not covered in my initial note. SUBJECTIVE: I met with the patient the evening of 01/02/2020 and staffed a treatment team meeting with the entire team. The patient is sleeping average 7 hours at night, appetite 100%, calm, cooperative, somewhat withdrawn. No overt psychotic symptoms and no talk about that her sister is trying to sacrifice or is going to eat the baby. REVIEW OF SYSTEMS: No CV, , pulmonary, eye system symptoms on review. MENTAL STATUS EXAM: Reasonably oriented. Speech is coherent, has some latency. Abstraction fair, computation impaired, language function intact, attention span short. At one point earlier in the day, she put herself on the ground. No injuries noted. I addressed this with her, she is unable to explain. LABORATORY DATA: Reviewed. IMPRESSION: Unchanged from initial note. PLAN: No change from initial note, but we may need to increase the Risperdal if psychotic symptoms persist. She is also on Invega. MAN Adonis CABRERA MD DR: FRED/minnie JOB#: [id number] / [id number]
[2020-01-04 05:33] VITALS: BP 98/52
[2020-01-04] MEDS: THIAMINE 100 MG TABLET. PO SCH (08:33)
[2020-01-04] MEDS: buPROPion XL 150 MG TAB.ER.24H PO SCH (08:33)
[2020-01-04] MEDS: FLUoxetine HCL 20 MG CAPSULE PO SCH (08:33)
[2020-01-04] MEDS: MULTIVITAMIN with MINERAL TABLET. PO SCH (08:33)
[2020-01-04] MEDS: CHOLECALCIFEROL (VITAMIN D3) 1,000 UNIT TABLET PO SCH (08:33)
[2020-01-04] MEDS: PALIPERIDONE 6 MG TAB.ER.24. PO SCH ×2 (08:33→20:19)
[2020-01-04] MEDS: ASPIRIN ENTERIC COATED 81 MG TABLET.DR. PO SCH (08:33)
[2020-01-04] MEDS: MIDODRINE 5 MG TABLET PO SCH ×2 (08:33→17:35)
[2020-01-04] MEDS: MAG HYDROX/AL HYDROX/SIMETH 30 ML ORAL.SUSP PO PRN (14:33)
[2020-01-04 15:43] VITALS: BP 108/73
[2020-01-04] MEDS: DIVALPROEX ER 250 MG TAB.ER.24H. PO SCH (20:19)
[2020-01-04] MEDS: TEMAZEPAM 15 MG CAPSULE PO SCH (20:19)
[2020-01-04] MEDS: risperiDONE 0.25 MG TABLET. PO SCH (20:19)
[2020-01-04] MEDS: DIVALPROEX ER 500 MG TAB.ER.24H PO SCH (20:20)
--- NOTE | 2020-01-04 21:21 | PDOC ---
Exam Note: Norris Note: Please also refer to the separate dictated note~for this date of service dictated separately.~Patient seen individually. Discussed the patient with Nursing staff reviewed the chart.~Reviewed interim history and current functioning. Reviewed vital signs,~Labs/ Radiology~and current medications noted below. Continue current treatment with the changes noted in the dictated addendum note Assessment: Vital Signs/I&O: Vital Signs Date Time Temp Pulse Resp B/P (MAP) Pulse Ox O2 Delivery O2 Flow Rate FiO2 01/04/20 17:35 104 108/73 01/04/20 15:43 98.1 18 93 01/03/20 16:11 Room Air I & O 01/03/20 01/03/20 01/04/20 15:00 23:00 07:00 Intake Total 840 ml 360 ml Balance 840 ml 360 ml Current Medications: I have reviewed the current psychotropics carefully including drug interactions. Risk benefit ratio favors no change other than as noted in my dictated progress note. Diagnosis: Problems: (1) Anxiety disorder (2) Impulse control disorder (3) Schizoaffective disorder, chronic condition with acute exacerbation (4) Personality disorder in adult LI CABRERA MD Jan 04, 2020 21:21
[2020-01-05 05:40] VITALS: BP 119/70
[2020-01-05] MEDS: ASPIRIN ENTERIC COATED 81 MG TABLET.DR. PO SCH (08:46)
[2020-01-05] MEDS: FLUoxetine HCL 20 MG CAPSULE PO SCH (08:46)
[2020-01-05] MEDS: THIAMINE 100 MG TABLET. PO SCH (08:46)
[2020-01-05] MEDS: PALIPERIDONE 6 MG TAB.ER.24. PO SCH ×2 (08:46→20:13)
[2020-01-05] MEDS: MULTIVITAMIN with MINERAL TABLET. PO SCH (08:46)
[2020-01-05] MEDS: buPROPion XL 150 MG TAB.ER.24H PO SCH (08:46)
[2020-01-05] MEDS: MIDODRINE 5 MG TABLET PO SCH ×2 (08:47→17:29)
[2020-01-05] MEDS: CHOLECALCIFEROL (VITAMIN D3) 1,000 UNIT TABLET PO SCH (08:47)
[2020-01-05 15:26] VITALS: BP 113/58
[2020-01-05] MEDS: DIVALPROEX ER 250 MG TAB.ER.24H. PO SCH (20:13)
[2020-01-05] MEDS: risperiDONE 0.25 MG TABLET. PO SCH (20:13)
[2020-01-05] MEDS: TEMAZEPAM 15 MG CAPSULE PO SCH (20:13)
[2020-01-05] MEDS: DIVALPROEX ER 500 MG TAB.ER.24H PO SCH (20:13)
--- NOTE | 2020-01-05 21:16 | PDOC ---
Exam Note: Norris Note: Please also refer to the separate dictated note~for this date of service dictated separately.~Patient seen individually. Discussed the patient with Nursing staff reviewed the chart.~Reviewed interim history and current functioning. Reviewed vital signs,~Labs/ Radiology~and current medications noted below. Continue current treatment with the changes noted in the dictated addendum note Assessment: Vital Signs/I&O: Vital Signs Date Time Temp Pulse Resp B/P (MAP) Pulse Ox O2 Delivery O2 Flow Rate FiO2 01/05/20 17:29 85 113/58 01/05/20 15:26 97.2 16 89 01/03/20 16:11 Room Air I & O 01/04/20 01/04/20 01/05/20 15:00 23:00 07:00 Intake Total 480 ml 360 ml Balance 480 ml 360 ml Current Medications: I have reviewed the current psychotropics carefully including drug interactions. Risk benefit ratio favors no change other than as noted in my dictated progress note. Diagnosis: Problems: (1) Anxiety disorder (2) Impulse control disorder (3) Schizoaffective disorder, chronic condition with acute exacerbation (4) Personality disorder in adult LI CABRERA MD Jan 05, 2020 21:16
--- NOTE | 2020-01-05 22:25 | PN ---
DATE: 01/03/2020 PSYCHIATRIC PROGRESS NOTE This late entry 01/03/2020 covers elements not covered in my initial note. SUBJECTIVE: I met with the patient evening of 01/03/2020. Per EVELIO Andrew, the patient slept 6-1/2 hours previous night. She has been somewhat withdrawn, soft spoken, but no clear hallucinations or delusions noted. REVIEW OF SYSTEMS: No CV, , pulmonary, eye system symptoms on review. MENTAL STATUS EXAM: Reasonably oriented. Speech moderate latency, low in rate and rhythm, low in volume, often responses monosyllabic. Abstraction fair, computation impaired, language function intact, attention span fair. Mood and affect withdrawn, but improved. LABORATORY DATA: Reviewed. IMPRESSION: Unchanged from initial note. PLAN: No change from initial note. MAN Adonis CABRERA MD DR: FRED/minnie JOB#: [id number] / [id number]
--- NOTE | 2020-01-06 04:43 | PN ---
DATE: 01/04/2020 PSYCHIATRIC PROGRESS NOTE This late entry 01/04/2020 covers elements not covered in my initial note. SUBJECTIVE: I met with the patient in the evening of 01/04/2020. The patient slept 5-1/2 hours previous night. For the most part, she has been withdrawn, but appropriate. No clear psychotic symptoms noted. REVIEW OF SYSTEMS: No CV, , pulmonary, eye system symptoms on review. Reliability fair. MENTAL STATUS EXAM: Reasonably oriented. Speech moderate latency, low in rate and rhythm, low in volume, often responses monosyllabic. Abstraction fair, computation impaired, language function intact, attention span short. Mood and affect withdrawn. LABORATORY DATA: Reviewed. IMPRESSION: Unchanged from initial note. PLAN: No change from initial note. MAN Adonis CABRERA MD DR: FRED/minnie JOB#: [id number] / [id number]
[2020-01-06 06:15] VITALS: BP 98/68
[2020-01-06] MEDS: MULTIVITAMIN with MINERAL TABLET. PO SCH (07:58)
[2020-01-06] MEDS: THIAMINE 100 MG TABLET. PO SCH (07:58)
[2020-01-06] MEDS: buPROPion XL 150 MG TAB.ER.24H PO SCH (07:58)
[2020-01-06] MEDS: FLUoxetine HCL 20 MG CAPSULE PO SCH (07:59)
[2020-01-06] MEDS: MIDODRINE 5 MG TABLET PO SCH ×2 (07:59→17:33)
[2020-01-06] MEDS: CHOLECALCIFEROL (VITAMIN D3) 1,000 UNIT TABLET PO SCH (07:59)
[2020-01-06] MEDS: ASPIRIN ENTERIC COATED 81 MG TABLET.DR. PO SCH (07:59)
[2020-01-06] MEDS: PALIPERIDONE 6 MG TAB.ER.24. PO SCH ×2 (08:00→20:14)
[2020-01-06 16:07] VITALS: BP 113/75
[2020-01-06] MEDS: DIVALPROEX ER 500 MG TAB.ER.24H PO SCH (20:14)
[2020-01-06] MEDS: TEMAZEPAM 15 MG CAPSULE PO SCH (20:14)
[2020-01-06] MEDS: DIVALPROEX ER 250 MG TAB.ER.24H. PO SCH (20:14)
[2020-01-06] MEDS: risperiDONE 0.25 MG TABLET. PO SCH (20:14)
--- NOTE | 2020-01-06 21:38 | PDOC ---
Exam Note: Norris Note: Please also refer to the separate dictated note~for this date of service dictated separately.~Patient seen individually. Discussed the patient with Nursing staff reviewed the chart.~Reviewed interim history and current functioning. Reviewed vital signs,~Labs/ Radiology~and current medications noted below. Continue current treatment with the changes noted in the dictated addendum note Assessment: Vital Signs/I&O: Vital Signs Date Time Temp Pulse Resp B/P (MAP) Pulse Ox O2 Delivery O2 Flow Rate FiO2 01/06/20 17:33 85 113/75 01/06/20 16:07 98.7 16 91 01/03/20 16:11 Room Air I & O 01/05/20 01/05/20 01/06/20 14:59 22:59 06:59 Intake Total 480 ml 240 ml 120 ml Balance 480 ml 240 ml 120 ml Current Medications: Meds: Current Medications Medications (Trade) Dose Ordered Sig/Liv Route PRN Reason Start Time Stop Time Status Last Admin Dose Admin Risperidone (RisperDAL) 0.75 mg HS PO 01/06/20 21:00 01/06/20 20:14 I have reviewed the current psychotropics carefully including drug interactions. Risk benefit ratio favors no change other than as noted in my dictated progress note. Diagnosis: Problems: (1) Anxiety disorder (2) Impulse control disorder (3) Schizoaffective disorder, chronic condition with acute exacerbation (4) Personality disorder in adult LI CABRERA MD Jan 06, 2020 21:37
--- NOTE | 2020-01-07 03:36 | PN ---
DATE: 01/05/2020 PSYCHIATRIC PROGRESS NOTE. This late entry of 01/05/2020 covers the elements not covered in my initial note. SUBJECTIVE: I met with the patient in the evening of 01/05/2020. Per EVELIO Chan, the patient has been somewhat withdrawn. At one point, she had made a vague statement to nursing staff that she was either having a GI upset due to food that she had eaten or she was . She denied this as I questioned her closely. REVIEW OF SYSTEMS: No CV, , pulmonary, eye system symptoms on review. She does have some intermittent GI symptoms. MENTAL STATUS EXAM: Reasonably oriented. Speech is coherent, has some latency. Abstraction fair, computation impaired, language function intact, attention span short. Mood and affect withdrawn. LABORATORY DATA: Reviewed. IMPRESSION: Unchanged from initial note. PLAN: No change from initial note, but she is still somewhat paranoid. We will increase the bedtime Risperdal from 0.5 mg to 0.75 mg at bedtime. Rest unchanged. MAN Adonis CABRERA MD DR: FRED/minnie JOB#: [id number] / [id number]
[2020-01-07 06:32] VITALS: BP 101/68
[2020-01-07] MEDS: ASPIRIN ENTERIC COATED 81 MG TABLET.DR. PO SCH (08:44)
[2020-01-07] MEDS: MULTIVITAMIN with MINERAL TABLET. PO SCH (08:45)
[2020-01-07] MEDS: FLUoxetine HCL 20 MG CAPSULE PO SCH (08:45)
[2020-01-07] MEDS: CHOLECALCIFEROL (VITAMIN D3) 1,000 UNIT TABLET PO SCH (08:45)
[2020-01-07] MEDS: buPROPion XL 150 MG TAB.ER.24H PO SCH (08:45)
[2020-01-07] MEDS: PALIPERIDONE 6 MG TAB.ER.24. PO SCH ×2 (08:45→20:20)
[2020-01-07] MEDS: MIDODRINE 5 MG TABLET PO SCH ×2 (08:45→17:44)
[2020-01-07] MEDS: THIAMINE 100 MG TABLET. PO SCH (08:45)
[2020-01-07 15:44] VITALS: BP 109/74
[2020-01-07] MEDS: risperiDONE 0.25 MG TABLET. PO SCH (20:19)
[2020-01-07] MEDS: DIVALPROEX ER 250 MG TAB.ER.24H. PO SCH (20:20)
[2020-01-07] MEDS: DIVALPROEX ER 500 MG TAB.ER.24H PO SCH (20:20)
[2020-01-07] MEDS: TEMAZEPAM 15 MG CAPSULE PO SCH (20:20)
[2020-01-07] MEDS: MAG HYDROX/AL HYDROX/SIMETH 30 ML ORAL.SUSP PO PRN (20:23)
--- NOTE | 2020-01-07 21:19 | PDOC ---
Exam Note: Norris Note: Please also refer to the separate dictated note~for this date of service dictated separately.~Patient seen individually. Discussed the patient with Nursing staff reviewed the chart.~Reviewed interim history and current functioning. Reviewed vital signs,~Labs/ Radiology~and current medications noted below. Continue current treatment with the changes noted in the dictated addendum note Assessment: Vital Signs/I&O: Vital Signs Date Time Temp Pulse Resp B/P (MAP) Pulse Ox O2 Delivery O2 Flow Rate FiO2 01/07/20 17:44 91 109/74 01/07/20 15:44 97.6 20 90 01/03/20 16:11 Room Air I & O 01/06/20 01/06/20 01/07/20 15:00 23:00 07:00 Intake Total 960 ml 600 ml Balance 960 ml 600 ml Current Medications: I have reviewed the current psychotropics carefully including drug interactions. Risk benefit ratio favors no change other than as noted in my dictated progress note. Diagnosis: Problems: (1) Anxiety disorder (2) Impulse control disorder (3) Schizoaffective disorder, chronic condition with acute exacerbation (4) Personality disorder in adult LI CABRERA MD Jan 07, 2020 21:19
[2020-01-08 05:58] VITALS: BP 105/70
[2020-01-08] MEDS: CHOLECALCIFEROL (VITAMIN D3) 1,000 UNIT TABLET PO SCH (09:19)
[2020-01-08] MEDS: FLUoxetine HCL 20 MG CAPSULE PO SCH (09:19)
[2020-01-08] MEDS: MULTIVITAMIN with MINERAL TABLET. PO SCH (09:19)
[2020-01-08] MEDS: buPROPion XL 150 MG TAB.ER.24H PO SCH (09:19)
[2020-01-08] MEDS: MIDODRINE 5 MG TABLET PO SCH ×2 (09:19→18:31)
[2020-01-08] MEDS: PALIPERIDONE 6 MG TAB.ER.24. PO SCH ×2 (09:20→20:37)
[2020-01-08] MEDS: CETIRIZINE HCL 10 MG TABLET PO SCH (09:20)
[2020-01-08] MEDS: THIAMINE 100 MG TABLET. PO SCH (09:20)
[2020-01-08] MEDS: ASPIRIN ENTERIC COATED 81 MG TABLET.DR. PO SCH (09:20)
[2020-01-08] MEDS: ACETAMINOPHEN 325 MG TABLET PO PRN (12:46)
[2020-01-08 15:51] VITALS: BP 92/61
[2020-01-08] MEDS: DIVALPROEX ER 250 MG TAB.ER.24H. PO SCH (20:37)
[2020-01-08] MEDS: risperiDONE 0.25 MG TABLET. PO SCH (20:37)
[2020-01-08] MEDS: DIVALPROEX ER 500 MG TAB.ER.24H PO SCH (20:37)
[2020-01-08] MEDS: TEMAZEPAM 15 MG CAPSULE PO SCH (20:37)
--- NOTE | 2020-01-08 21:45 | PDOC ---
Exam Note: Norris Note: Please also refer to the separate dictated note~for this date of service dictated separately.~Patient seen individually. Discussed the patient with Nursing staff reviewed the chart.~Reviewed interim history and current functioning. Reviewed vital signs,~Labs/ Radiology~and current medications noted below. Continue current treatment with the changes noted in the dictated addendum note Assessment: Vital Signs/I&O: Vital Signs Date Time Temp Pulse Resp B/P (MAP) Pulse Ox O2 Delivery O2 Flow Rate FiO2 01/08/20 18:31 87 92/61 01/08/20 15:51 97.6 16 98 01/08/20 05:58 Room Air I & O 01/07/20 01/07/20 01/08/20 15:00 23:00 07:00 Intake Total 840 ml 240 ml 240 ml Balance 840 ml 240 ml 240 ml Current Medications: Meds: Current Medications Medications (Trade) Dose Ordered Sig/Liv Route PRN Reason Start Time Stop Time Status Last Admin Dose Admin Cetirizine HCl (ZyrTEC) 10 mg DAILY PO 01/08/20 09:00 01/08/20 09:20 I have reviewed the current psychotropics carefully including drug interactions. Risk benefit ratio favors no change other than as noted in my dictated progress note. Diagnosis: Problems: (1) Anxiety disorder (2) Impulse control disorder (3) Schizoaffective disorder, chronic condition with acute exacerbation (4) Personality disorder in adult LI CABRERA MD Jan 08, 2020 21:45
[2020-01-09 06:15] VITALS: BP 106/68
[2020-01-09 07:56] LABS: BASO % 0 % (0-3); EOS # 0.1 x10^3/uL (0.0-0.7); EOS % 2 % (0-3); HEMATOCRIT 43.1 % (36.0-47.0); HEMOGLOBIN 13.8 g/dL (12.0-15.5); LYMPH # 1.7 x10^3/uL (1.0-4.8); LYMPH % 28 % (24-48); MEAN CORPUSCULAR HEMOGLOBIN 30 pg (25-35); MEAN CORPUSCULAR HGB CONC 32 g/dL (31-37); MEAN CORPUSCULAR VOLUME 94 fL (79-100); MONO # 0.7 x10^3/uL (0.0-1.1); MONO % 11 % (0-9); NEUT # 3.5 x10^3uL (1.8-7.7); NEUT % 58 % (31-73); PLATELET COUNT 245 x10^3/uL (140-400); RED BLOOD COUNT 4.61 x10^6/uL (3.50-5.40); RED CELL DISTRIBUTION WIDTH 16.1 % (11.5-14.5)
[2020-01-09 08:15] LABS: ALBUMIN 3.4 g/dL (3.4-5.0); ALBUMIN/GLOBULIN RATIO 0.9 (1.0-1.7); CALCIUM 9.1 mg/dL (8.5-10.1); CREATININE 0.6 mg/dL (0.6-1.0); GFR 99.1; POTASSIUM 4.1 mmol/L (3.5-5.1); TOTAL BILIRUBIN 0.3 mg/dL (0.2-1.0); TOTAL PROTEIN 7.4 g/dL (6.4-8.2)
[2020-01-09] MEDS: FLUoxetine HCL 20 MG CAPSULE PO SCH (08:27)
[2020-01-09] MEDS: CHOLECALCIFEROL (VITAMIN D3) 1,000 UNIT TABLET PO SCH (08:27)
[2020-01-09] MEDS: PALIPERIDONE 6 MG TAB.ER.24. PO SCH ×2 (08:27→20:32)
[2020-01-09] MEDS: buPROPion XL 150 MG TAB.ER.24H PO SCH (08:28)
[2020-01-09] MEDS: THIAMINE 100 MG TABLET. PO SCH (08:28)
[2020-01-09] MEDS: MULTIVITAMIN with MINERAL TABLET. PO SCH (08:28)
[2020-01-09] MEDS: ASPIRIN ENTERIC COATED 81 MG TABLET.DR. PO SCH (08:29)
[2020-01-09] MEDS: MIDODRINE 5 MG TABLET PO SCH ×2 (08:29→17:23)
[2020-01-09] MEDS: CETIRIZINE HCL 10 MG TABLET PO SCH (08:29)
[2020-01-09 16:14] VITALS: BP 116/76
[2020-01-09] MEDS: DIVALPROEX ER 500 MG TAB.ER.24H PO SCH (20:31)
[2020-01-09] MEDS: DIVALPROEX ER 250 MG TAB.ER.24H. PO SCH (20:31)
[2020-01-09] MEDS: risperiDONE 0.25 MG TABLET. PO SCH (20:32)
[2020-01-09] MEDS: TEMAZEPAM 15 MG CAPSULE PO SCH (20:32)
--- NOTE | 2020-01-09 21:23 | PDOC ---
Exam Note: Norris Note: Please also refer to the separate dictated note~for this date of service dictated separately.~Patient seen individually. Discussed the patient with Nursing staff reviewed the chart.~Reviewed interim history and current functioning. Reviewed vital signs,~Labs/ Radiology~and current medications noted below. Continue current treatment with the changes noted in the dictated addendum note Assessment: Vital Signs/I&O: Vital Signs Date Time Temp Pulse Resp B/P (MAP) Pulse Ox O2 Delivery O2 Flow Rate FiO2 01/09/20 17:23 89 116/76 01/09/20 16:14 97.2 20 94 Room Air I & O 01/08/20 01/08/20 01/09/20 15:00 23:00 07:00 Intake Total 600 ml 360 ml 240 ml Balance 600 ml 360 ml 240 ml Labs: Laboratory Tests Test 01/09/20 07:35 White Blood Count 6.0 x10^3/uL (4.0-11.0) Red Blood Count 4.61 x10^6/uL (3.50-5.40) Hemoglobin 13.8 g/dL (12.0-15.5) Hematocrit 43.1 % (36.0-47.0) Mean Corpuscular Volume 94 fL (79-100) Mean Corpuscular Hemoglobin 30 pg (25-35) Mean Corpuscular Hemoglobin Concent 32 g/dL (31-37) Red Cell Distribution Width 16.1 % (11.5-14.5) H Platelet Count 245 x10^3/uL (140-400) Neutrophils (%) (Auto) 58 % (31-73) Lymphocytes (%) (Auto) 28 % (24-48) Monocytes (%) (Auto) 11 % (0-9) H Eosinophils (%) (Auto) 2 % (0-3) Basophils (%) (Auto) 0 % (0-3) Neutrophils # (Auto) 3.5 x10^3uL (1.8-7.7) Lymphocytes # (Auto) 1.7 x10^3/uL (1.0-4.8) Monocytes # (Auto) 0.7 x10^3/uL (0.0-1.1) Eosinophils # (Auto) 0.1 x10^3/uL (0.0-0.7) Basophils # (Auto) 0.0 x10^3/uL (0.0-0.2) Sodium Level 144 mmol/L (136-145) Potassium Level 4.1 mmol/L (3.5-5.1) Chloride Level 106 mmol/L (98-107) Carbon Dioxide Level 31 mmol/L (21-32) Anion Gap 7 (6-14) Blood Urea Nitrogen 12 mg/dL (7-20) Creatinine 0.6 mg/dL (0.6-1.0) Estimated GFR (Cockcroft-Gault) 99.1 BUN/Creatinine Ratio 20 (6-20) Glucose Level 80 mg/dL (70-99) Calcium Level 9.1 mg/dL (8.5-10.1) Total Bilirubin 0.3 mg/dL (0.2-1.0) Aspartate Amino Transferase (AST) 23 U/L (15-37) Alanine Aminotransferase (ALT) 23 U/L (14-59) Alkaline Phosphatase 58 U/L (46-116) Total Protein 7.4 g/dL (6.4-8.2) Albumin 3.4 g/dL (3.4-5.0) Albumin/Globulin Ratio 0.9 (1.0-1.7) L Current Medications: I have reviewed the current psychotropics carefully including drug interactions. Risk benefit ratio favors no change other than as noted in my dictated progress note. Diagnosis: Problems: (1) Anxiety disorder (2) Impulse control disorder (3) Schizoaffective disorder, chronic condition with acute exacerbation (4) Personality disorder in adult RICKLI MD Jan 09, 2020 21:23
--- NOTE | 2020-01-10 00:08 | PN ---
DATE: 01/08/2020 PSYCHIATRIC PROGRESS NOTE This late entry 01/08/2020 covers elements not covered in my initial note. SUBJECTIVE: I met with the patient in the evening of 01/08/2020. Per EVELIO Fonseca, the patient slept 7-3/4 hours previous night. She remains somewhat delusional, believes she has a bunch of holes in her heart that are the size of beer cans and holes in her abdomen on the right side. She has been somewhat withdrawn in groups, but does come to groups. REVIEW OF SYSTEMS: No CV, , pulmonary, eye, ENT system symptoms on review. MENTAL STATUS EXAM: Oriented to herself and situation. Speech moderate latency, often responses monosyllabic. Abstraction fair, computation impaired, language function intact, attention span short. Mood and affect somewhat withdrawn. She remains somewhat psychotic. LABORATORY DATA: Reviewed. IMPRESSION: Unchanged from initial note. Schizoaffective disorder, bipolar type, mixed with psychotic features. Rest unchanged. PLAN: Continue Depakote at current dosage, level therapeutic at 99. Maintain Invega Sustenna, oral Invega 6 mg b.i.d., Prozac 40 mg a day, Risperdal 0.75 mg at bedtime, Wellbutrin XL 150 mg a day, Depakote ER 1250 at bedtime with a therapeutic level. Restoril 15 mg at bedtime. We will adjust further as clinically indicated and may consider Clozaril as an antipsychotic if her psychotic symptoms persist despite all antipsychotics orally she is taking at this time. LI CABRERA MD DR: FRED/minnie JOB#: [id number] / [id number]
[2020-01-10 06:20] VITALS: BP 100/66
[2020-01-10] MEDS: CETIRIZINE HCL 10 MG TABLET PO SCH (08:21)
[2020-01-10] MEDS: CHOLECALCIFEROL (VITAMIN D3) 1,000 UNIT TABLET PO SCH (08:21)
[2020-01-10] MEDS: MIDODRINE 5 MG TABLET PO SCH ×2 (08:21→17:31)
[2020-01-10] MEDS: ASPIRIN ENTERIC COATED 81 MG TABLET.DR. PO SCH (08:21)
[2020-01-10] MEDS: MULTIVITAMIN with MINERAL TABLET. PO SCH (08:21)
[2020-01-10] MEDS: FLUoxetine HCL 20 MG CAPSULE PO SCH (08:21)
[2020-01-10] MEDS: buPROPion XL 150 MG TAB.ER.24H PO SCH (08:21)
[2020-01-10] MEDS: PALIPERIDONE 6 MG TAB.ER.24. PO SCH ×2 (08:22→20:31)
[2020-01-10] MEDS: THIAMINE 100 MG TABLET. PO SCH (08:22)
[2020-01-10 15:51] VITALS: BP 115/76
[2020-01-10] MEDS: DIVALPROEX ER 250 MG TAB.ER.24H. PO SCH (20:30)
[2020-01-10] MEDS: TEMAZEPAM 15 MG CAPSULE PO SCH (20:30)
[2020-01-10] MEDS: DIVALPROEX ER 500 MG TAB.ER.24H PO SCH (20:31)
[2020-01-10] MEDS: risperiDONE 0.25 MG TABLET. PO SCH (20:31)
[2020-01-10] MEDS: ACETAMINOPHEN 325 MG TABLET PO PRN (20:35)
--- NOTE | 2020-01-10 21:23 | PDOC ---
Exam Note: Norris Note: Please also refer to the separate dictated note~for this date of service dictated separately.~Patient seen individually. Discussed the patient with Nursing staff reviewed the chart.~Reviewed interim history and current functioning. Reviewed vital signs,~Labs/ Radiology~and current medications noted below. Continue current treatment with the changes noted in the dictated addendum note Assessment: Vital Signs/I&O: Vital Signs Date Time Temp Pulse Resp B/P (MAP) Pulse Ox O2 Delivery O2 Flow Rate FiO2 01/10/20 17:31 82 115/76 01/10/20 15:51 97.6 18 94 01/09/20 16:14 Room Air I & O 01/09/20 01/09/20 01/10/20 15:00 23:00 07:00 Intake Total 960 ml 720 ml Balance 960 ml 720 ml Current Medications: I have reviewed the current psychotropics carefully including drug interactions. Risk benefit ratio favors no change other than as noted in my dictated progress note. Diagnosis: Problems: (1) Anxiety disorder (2) Impulse control disorder (3) Schizoaffective disorder, chronic condition with acute exacerbation (4) Personality disorder in adult LI CABRERA MD Jan 10, 2020 21:23
--- NOTE | 2020-01-10 23:55 | PN ---
DATE: 01/09/2020 This late entry 01/09/2020 covers elements not covered in my initial note. SUBJECTIVE: I met with the patient in the evening of 01/09/2020. Per EVELIO Palma, the patient slept 6-1/2 hours previous night. She has been calm. Denies any psychotic symptoms, but does believe there are holes in her heart, the size of beer cans, and I addressed this with her individually in the evening. REVIEW OF SYSTEMS: No CV, , pulmonary, eye system symptoms on review. Gait unsteady at times. MENTAL STATUS EXAM: Oriented to herself and situation. Speech has some latency, low in rate and rhythm, low in volume, often responses monosyllabic. Abstraction fair, computation impaired, language function intact, attention span short. Mood and affect withdrawn. LABORATORY DATA: Reviewed. IMPRESSION: Unchanged from initial note. PLAN: No change from initial note. LI CABRERA MD DR: FRED/minnie JOB#: [id number] / [id number]
[2020-01-11 05:57] VITALS: BP 102/68
[2020-01-11] MEDS: ACETAMINOPHEN 325 MG TABLET PO PRN ×2 (06:09→20:41)
[2020-01-11] MEDS: buPROPion XL 150 MG TAB.ER.24H PO SCH (08:11)
[2020-01-11] MEDS: MIDODRINE 5 MG TABLET PO SCH ×2 (08:11→17:08)
[2020-01-11] MEDS: MULTIVITAMIN with MINERAL TABLET. PO SCH (08:12)
[2020-01-11] MEDS: ASPIRIN ENTERIC COATED 81 MG TABLET.DR. PO SCH (08:12)
[2020-01-11] MEDS: CHOLECALCIFEROL (VITAMIN D3) 1,000 UNIT TABLET PO SCH (08:12)
[2020-01-11] MEDS: FLUoxetine HCL 20 MG CAPSULE PO SCH (08:12)
[2020-01-11] MEDS: CETIRIZINE HCL 10 MG TABLET PO SCH (08:12)
[2020-01-11] MEDS: THIAMINE 100 MG TABLET. PO SCH (08:12)
[2020-01-11] MEDS: PALIPERIDONE 6 MG TAB.ER.24. PO SCH ×2 (08:12→20:41)
[2020-01-11 16:06] VITALS: BP 107/73
[2020-01-11] MEDS: DIVALPROEX ER 500 MG TAB.ER.24H PO SCH (20:40)
[2020-01-11] MEDS: risperiDONE 0.25 MG TABLET. PO SCH (20:41)
[2020-01-11] MEDS: DIVALPROEX ER 250 MG TAB.ER.24H. PO SCH (20:41)
[2020-01-11] MEDS: TEMAZEPAM 15 MG CAPSULE PO SCH (20:41)
--- NOTE | 2020-01-11 22:04 | PDOC ---
Exam Note: Norris Note: Please also refer to the separate dictated note~for this date of service dictated separately.~Patient seen individually. Discussed the patient with Nursing staff reviewed the chart.~Reviewed interim history and current functioning. Reviewed vital signs,~Labs/ Radiology~and current medications noted below. Continue current treatment with the changes noted in the dictated addendum note Assessment: Vital Signs/I&O: Vital Signs Date Time Temp Pulse Resp B/P (MAP) Pulse Ox O2 Delivery O2 Flow Rate FiO2 01/11/20 17:08 88 107/73 01/11/20 16:06 98.2 20 98 01/09/20 16:14 Room Air I & O 01/10/20 01/10/20 01/11/20 15:00 23:00 07:00 Intake Total 720 ml 240 ml 120 ml Balance 720 ml 240 ml 120 ml Current Medications: I have reviewed the current psychotropics carefully including drug interactions. Risk benefit ratio favors no change other than as noted in my dictated progress note. Diagnosis: Problems: (1) Anxiety disorder (2) Impulse control disorder (3) Schizoaffective disorder, chronic condition with acute exacerbation (4) Personality disorder in adult LI CABRERA MD Jan 11, 2020 22:04
[2020-01-12 06:30] VITALS: BP 111/71
[2020-01-12] MEDS: PALIPERIDONE 6 MG TAB.ER.24. PO SCH ×2 (08:38→20:37)
[2020-01-12] MEDS: MULTIVITAMIN with MINERAL TABLET. PO SCH (08:38)
[2020-01-12] MEDS: MIDODRINE 5 MG TABLET PO SCH ×2 (08:38→17:08)
[2020-01-12] MEDS: CHOLECALCIFEROL (VITAMIN D3) 1,000 UNIT TABLET PO SCH (08:38)
[2020-01-12] MEDS: THIAMINE 100 MG TABLET. PO SCH (08:38)
[2020-01-12] MEDS: ASPIRIN ENTERIC COATED 81 MG TABLET.DR. PO SCH (08:39)
[2020-01-12] MEDS: CETIRIZINE HCL 10 MG TABLET PO SCH (08:39)
[2020-01-12] MEDS: risperiDONE 0.5 MG TABLET. PO SCH ×2 (08:39→17:08)
[2020-01-12] MEDS: buPROPion XL 150 MG TAB.ER.24H PO SCH (08:39)
[2020-01-12] MEDS: FLUoxetine HCL 20 MG CAPSULE PO SCH (08:39)
[2020-01-12 16:00] VITALS: BP 95/64
[2020-01-12] MEDS: TEMAZEPAM 15 MG CAPSULE PO SCH (20:36)
[2020-01-12] MEDS: DIVALPROEX ER 500 MG TAB.ER.24H PO SCH (20:36)
[2020-01-12] MEDS: DIVALPROEX ER 250 MG TAB.ER.24H. PO SCH (20:36)
[2020-01-12] MEDS ORDERED: risperiDONE 0.25 MG TABLET. PO SCH (21:00)
--- NOTE | 2020-01-12 21:42 | PDOC ---
Exam Note: Norris Note: Please also refer to the separate dictated note~for this date of service dictated separately.~Patient seen individually. Discussed the patient with Nursing staff reviewed the chart.~Reviewed interim history and current functioning. Reviewed vital signs,~Labs/ Radiology~and current medications noted below. Continue current treatment with the changes noted in the dictated addendum note Assessment: Vital Signs/I&O: Vital Signs Date Time Temp Pulse Resp B/P (MAP) Pulse Ox O2 Delivery O2 Flow Rate FiO2 01/12/20 17:08 83 95/64 01/12/20 16:00 98.4 16 90 01/09/20 16:14 Room Air I & O 01/11/20 01/11/20 01/12/20 15:00 23:00 07:00 Intake Total 600 ml 600 ml Balance 600 ml 600 ml Current Medications: Meds: Current Medications Medications (Trade) Dose Ordered Sig/Liv Route PRN Reason Start Time Stop Time Status Last Admin Dose Admin Risperidone (RisperDAL) 0.5 mg 0900,1700 PO 01/12/20 09:00 01/12/20 17:08 I have reviewed the current psychotropics carefully including drug interactions. Risk benefit ratio favors no change other than as noted in my dictated progress note. Diagnosis: Problems: (1) Anxiety disorder (2) Impulse control disorder (3) Schizoaffective disorder, chronic condition with acute exacerbation (4) Personality disorder in adult LI CABRERA MD Jan 12, 2020 21:42
--- NOTE | 2020-01-13 04:27 | PN ---
DATE: 01/10/2020 PSYCHIATRIC PROGRESS NOTE This late entry 01/10/2020 covers elements not covered in my initial note. SUBJECTIVE: I met with the patient in her room at length in the evening. She was also staffed at a treatment team meeting with the entire team in the afternoon. Sleeping 7 hours average. Appetite 90%, withdrawn, somewhat delusional, fixated that she has beer can size holes in her heart, abdomen and sometimes head. REVIEW OF SYSTEMS: Positive for some tiredness. No CV, , pulmonary, eye system symptoms on review. MENTAL STATUS EXAM: Reasonably oriented. Speech has some latency, coherent. Abstraction fair, computation impaired, language function intact, attention span short. Mood and affect somewhat withdrawn. LABORATORY DATA: Reviewed. IMPRESSION: Unchanged from initial note. PLAN: No change from initial note, but we may need to adjust antipsychotics if above delusions persist. MAN Adonis CABRERA MD DR: FRED/minnie JOB#: [id number] / [id number]
--- NOTE | 2020-01-13 04:34 | PN ---
DATE: 01/11/2020 PSYCHIATRIC PROGRESS NOTE This late entry 01/11/2020 covers elements not covered in my initial note. SUBJECTIVE: I met with the patient evening of 01/11/2020. The patient slept 6-3/4 hours previous night. Per nursing report, she has done better, but as I met with her in the evening, she was quite paranoid, delusional, stated "Maira is on the loose." When I questioned her who this was, she stated it was a bad spirit and was talking about Satan and God and conflicts and other things in this area. REVIEW OF SYSTEMS: Ambulation somewhat impaired. No CV, , pulmonary, eye, ENT system symptoms on review. MENTAL STATUS EXAM: Oriented to herself and situation. Speech moderate latency, often responses monosyllabic. Abstraction fair, computation impaired, language function intact, attention span short. Mood and affect withdrawn. LABORATORY DATA: Reviewed. IMPRESSION: Schizoaffective disorder, bipolar type, mixed with psychotic features; anxiety disorder, unspecified; impulse control disorder, unspecified. PLAN: Increase Risperdal from 0.75 mg at bedtime to 0.5 mg 9 a.m. and 5:00 p.m. Continue Wellbutrin, Depakote, and she is on fluoxetine, Invega oral and IM and Restoril 15 mg at bedtime. Adjust further as clinically indicated. LI CABRERA MD DR: FRED/minnie JOB#: [id number] / [id number]
[2020-01-13 05:47] VITALS: BP 114/75
[2020-01-13] MEDS: buPROPion XL 150 MG TAB.ER.24H PO SCH (08:59)
[2020-01-13] MEDS: CHOLECALCIFEROL (VITAMIN D3) 1,000 UNIT TABLET PO SCH (08:59)
[2020-01-13] MEDS: FLUoxetine HCL 20 MG CAPSULE PO SCH (08:59)
[2020-01-13] MEDS: PALIPERIDONE 6 MG TAB.ER.24. PO SCH ×2 (08:59→20:52)
[2020-01-13] MEDS: THIAMINE 100 MG TABLET. PO SCH (09:00)
[2020-01-13] MEDS: CETIRIZINE HCL 10 MG TABLET PO SCH (09:00)
[2020-01-13] MEDS: MULTIVITAMIN with MINERAL TABLET. PO SCH (09:00)
[2020-01-13] MEDS: risperiDONE 0.5 MG TABLET. PO SCH ×2 (09:00→17:35)
[2020-01-13] MEDS: ASPIRIN ENTERIC COATED 81 MG TABLET.DR. PO SCH (09:00)
[2020-01-13] MEDS: MIDODRINE 5 MG TABLET PO SCH ×2 (09:00→17:36)
[2020-01-13 16:08] VITALS: BP 125/82
[2020-01-13] MEDS: TEMAZEPAM 15 MG CAPSULE PO SCH (20:51)
[2020-01-13] MEDS: DIVALPROEX ER 500 MG TAB.ER.24H PO SCH (20:52)
[2020-01-13] MEDS: DIVALPROEX ER 250 MG TAB.ER.24H. PO SCH (20:52)
--- NOTE | 2020-01-13 21:24 | PDOC ---
Exam Note: Norris Note: Please also refer to the separate dictated note~for this date of service dictated separately.~Patient seen individually. Discussed the patient with Nursing staff reviewed the chart.~Reviewed interim history and current functioning. Reviewed vital signs,~Labs/ Radiology~and current medications noted below. Continue current treatment with the changes noted in the dictated addendum note Assessment: Vital Signs/I&O: Vital Signs Date Time Temp Pulse Resp B/P (MAP) Pulse Ox O2 Delivery O2 Flow Rate FiO2 01/13/20 17:36 80 125/82 01/13/20 16:08 97.6 16 92 01/09/20 16:14 Room Air I & O 01/12/20 01/12/20 01/13/20 15:00 23:00 07:00 Intake Total 480 ml 480 ml 240 ml Balance 480 ml 480 ml 240 ml Current Medications: I have reviewed the current psychotropics carefully including drug interactions. Risk benefit ratio favors no change other than as noted in my dictated progress note. Diagnosis: Problems: (1) Anxiety disorder (2) Impulse control disorder (3) Schizoaffective disorder, chronic condition with acute exacerbation (4) Personality disorder in adult LI CABRERA MD Jan 13, 2020 21:24
--- NOTE | 2020-01-14 04:01 | PN ---
DATE: 01/12/2020 PSYCHIATRIC PROGRESS NOTE This late entry of 01/12 covers elements not covered in my initial note. SUBJECTIVE: I met with the patient the evening of 01/12. The patient slept 7-1/4 hours the previous night per EVELIO Lara. She has been pleasant, quiet, still somewhat paranoid, but not very forthcoming unless specifically questioned about it. REVIEW OF SYSTEMS: Positive for some tiredness. No CV, , pulmonary, eye system symptoms on review. MENTAL STATUS EXAMINATION: Reasonably oriented. Speech with moderate latency, often response is monosyllabic. Abstraction fair, computation impaired, language function intact. Mood and affect withdrawn. LABORATORY DATA: Reviewed. IMPRESSION: Unchanged from initial note. PLAN: No change from initial note. MAN Adonis CABRERA MD DR: FRED/minnie JOB#: [id number] / [id number]
[2020-01-14 05:54] VITALS: BP 96/55
[2020-01-14] MEDS: MULTIVITAMIN with MINERAL TABLET. PO SCH (08:37)
[2020-01-14] MEDS: CETIRIZINE HCL 10 MG TABLET PO SCH (08:37)
[2020-01-14] MEDS: PALIPERIDONE 6 MG TAB.ER.24. PO SCH ×2 (08:37→20:36)
[2020-01-14] MEDS: CHOLECALCIFEROL (VITAMIN D3) 1,000 UNIT TABLET PO SCH (08:37)
[2020-01-14] MEDS: MIDODRINE 5 MG TABLET PO SCH ×2 (08:37→17:35)
[2020-01-14] MEDS: FLUoxetine HCL 20 MG CAPSULE PO SCH (08:37)
[2020-01-14] MEDS: buPROPion XL 150 MG TAB.ER.24H PO SCH (08:37)
[2020-01-14] MEDS: THIAMINE 100 MG TABLET. PO SCH (08:37)
[2020-01-14] MEDS: risperiDONE 0.5 MG TABLET. PO SCH ×2 (08:38→17:36)
[2020-01-14] MEDS: ASPIRIN ENTERIC COATED 81 MG TABLET.DR. PO SCH (08:38)
[2020-01-14 16:26] VITALS: BP 108/71
[2020-01-14] MEDS: ACETAMINOPHEN 325 MG TABLET PO PRN (17:38)
[2020-01-14] MEDS: TEMAZEPAM 15 MG CAPSULE PO SCH (20:36)
[2020-01-14] MEDS: DIVALPROEX ER 500 MG TAB.ER.24H PO SCH (20:36)
[2020-01-14] MEDS: DIVALPROEX ER 250 MG TAB.ER.24H. PO SCH (20:36)
--- NOTE | 2020-01-14 21:19 | PDOC ---
Exam Note: Norris Note: Please also refer to the separate dictated note~for this date of service dictated separately.~Patient seen individually. Discussed the patient with Nursing staff reviewed the chart.~Reviewed interim history and current functioning. Reviewed vital signs,~Labs/ Radiology~and current medications noted below. Continue current treatment with the changes noted in the dictated addendum note Assessment: Vital Signs/I&O: Vital Signs Date Time Temp Pulse Resp B/P (MAP) Pulse Ox O2 Delivery O2 Flow Rate FiO2 01/14/20 17:35 82 108/71 01/14/20 16:26 97.8 16 90 01/09/20 16:14 Room Air I & O 01/13/20 01/13/20 01/14/20 15:00 23:00 07:00 Intake Total 1080 ml 480 ml 100 ml Balance 1080 ml 480 ml 100 ml Current Medications: I have reviewed the current psychotropics carefully including drug interactions. Risk benefit ratio favors no change other than as noted in my dictated progress note. Diagnosis: Problems: (1) Anxiety disorder (2) Impulse control disorder (3) Schizoaffective disorder, chronic condition with acute exacerbation (4) Personality disorder in adult LI CABRERA MD Jan 14, 2020 21:19
--- NOTE | 2020-01-15 04:03 | PN ---
DATE: 01/13/2020 PSYCHIATRIC PROGRESS NOTE This late entry 01/13/2020 covers elements not covered in my initial note. SUBJECTIVE: I met with the patient evening of 01/13/2020. Per EVELIO Rowe, patient slept 7-1/4 hours previous night. She has been somewhat withdrawn, but did attend groups. She remains somewhat paranoid, talking about Maira, the spirit that is in conflict with Satdave, but she had a smile about her as she addressed this with me. REVIEW OF SYSTEMS: No CV, , pulmonary, eye system symptoms on review. Gait is little unsteady. MENTAL STATUS EXAM: Reasonably oriented. Speech has some latency, coherent. Abstraction fair, computation impaired, language function intact, attention span short. Mood and affect somewhat withdrawn, still paranoid. LABORATORY DATA: Reviewed. IMPRESSION: Schizoaffective disorder, bipolar type, mixed with psychotic features; anxiety disorder, unspecified; impulse control disorder. Rest unchanged. PLAN: Continue psychotropics from initial note. Valproic acid level therapeutic at 99. Risperdal, Wellbutrin, Invega will be continued at current dosage. May reduce the fluoxetine since it could be worsening some of her bipolar symptoms. Continue temazepam 15 mg at bedtime. MAN Adonis CABRERA MD DR: FRED/minnie JOB#: [id number] / [id number]
[2020-01-15] MEDS: ACETAMINOPHEN 325 MG TABLET PO PRN (05:19)
[2020-01-15 05:44] VITALS: BP 108/73
[2020-01-15] MEDS: FLUoxetine HCL 20 MG CAPSULE PO SCH (08:27)
[2020-01-15] MEDS: CETIRIZINE HCL 10 MG TABLET PO SCH (08:28)
[2020-01-15] MEDS: MULTIVITAMIN with MINERAL TABLET. PO SCH (08:28)
[2020-01-15] MEDS: MIDODRINE 5 MG TABLET PO SCH ×2 (08:28→17:42)
[2020-01-15] MEDS: CHOLECALCIFEROL (VITAMIN D3) 1,000 UNIT TABLET PO SCH (08:28)
[2020-01-15] MEDS: ASPIRIN ENTERIC COATED 81 MG TABLET.DR. PO SCH (08:28)
[2020-01-15] MEDS: THIAMINE 100 MG TABLET. PO SCH (08:29)
[2020-01-15] MEDS: buPROPion XL 150 MG TAB.ER.24H PO SCH (08:29)
[2020-01-15] MEDS: risperiDONE 0.5 MG TABLET. PO SCH ×2 (08:29→17:43)
[2020-01-15] MEDS: PALIPERIDONE 6 MG TAB.ER.24. PO SCH ×2 (08:29→20:20)
[2020-01-15 16:12] VITALS: BP 115/75
[2020-01-15] MEDS: TEMAZEPAM 15 MG CAPSULE PO SCH (20:19)
[2020-01-15] MEDS: DIVALPROEX ER 500 MG TAB.ER.24H PO SCH (20:20)
[2020-01-15] MEDS: DIVALPROEX ER 250 MG TAB.ER.24H. PO SCH (20:20)
--- NOTE | 2020-01-15 21:20 | PDOC ---
Exam Note: Norris Note: Please also refer to the separate dictated note~for this date of service dictated separately.~Patient seen individually. Discussed the patient with Nursing staff reviewed the chart.~Reviewed interim history and current functioning. Reviewed vital signs,~Labs/ Radiology~and current medications noted below. Continue current treatment with the changes noted in the dictated addendum note Assessment: Vital Signs/I&O: Vital Signs Date Time Temp Pulse Resp B/P (MAP) Pulse Ox O2 Delivery O2 Flow Rate FiO2 01/15/20 17:42 81 115/75 01/15/20 16:12 97.6 20 90 01/09/20 16:14 Room Air I & O 01/14/20 01/14/20 01/15/20 15:00 23:00 07:00 Intake Total 600 ml 480 ml 240 ml Balance 600 ml 480 ml 240 ml Current Medications: Meds: Current Medications Medications (Trade) Dose Ordered Sig/Liv Route PRN Reason Start Time Stop Time Status Last Admin Dose Admin Fluoxetine HCl (PROzac) 20 mg DAILY PO 01/15/20 09:00 01/15/20 08:27 I have reviewed the current psychotropics carefully including drug interactions. Risk benefit ratio favors no change other than as noted in my dictated progress note. Diagnosis: Problems: (1) Anxiety disorder (2) Impulse control disorder (3) Schizoaffective disorder, chronic condition with acute exacerbation (4) Personality disorder in adult LI CABRERA MD Jan 15, 2020 21:20
--- NOTE | 2020-01-15 21:48 | PN ---
DATE: 01/14/2020 PSYCHIATRIC PROGRESS NOTE This late entry, 01/14, covers the elements not covered in my initial note. SUBJECTIVE: I met with the patient on the evening of 01/14 in her room at length. Per EVELIO Fonseca, the patient slept 7 hours previous night. She remains somewhat paranoid, psychotic. When I questioned her on the spirit of Maira she stated "I put an end to Maira, now she may be mad at me." REVIEW OF SYSTEMS: No CV, , pulmonary, eye systems symptoms on review. MENTAL STATUS EXAM: Oriented to herself and situation. Speech is coherent, has some latency. Abstraction fair, computation impaired, language function intact, attention span short. Mood and affect withdrawn. LABORATORY DATA: Reviewed. IMPRESSION: Schizoaffective disorder, bipolar type, mixed with psychotic features. Rest unchanged. PLAN: The patient is on Prozac 40 mg a day, this could be worsening some of her bipolar mood symptoms. We will reduce to 20 mg a day. Continue Wellbutrin, Depakote, Risperdal, Invega along with Restoril. Rest unchanged for now. MAN Adonis CABRERA MD DR: FRED/minnie JOB#: [id number] / [id number]
[2020-01-16 05:41] VITALS: BP 118/74
[2020-01-16] MEDS: ASPIRIN ENTERIC COATED 81 MG TABLET.DR. PO SCH (09:00)
[2020-01-16] MEDS: PALIPERIDONE 6 MG TAB.ER.24. PO SCH ×2 (09:25→19:52)
[2020-01-16] MEDS: CHOLECALCIFEROL (VITAMIN D3) 1,000 UNIT TABLET PO SCH (09:25)
[2020-01-16] MEDS: risperiDONE 0.5 MG TABLET. PO SCH ×2 (09:25→17:56)
[2020-01-16] MEDS: MULTIVITAMIN with MINERAL TABLET. PO SCH (09:25)
[2020-01-16] MEDS: CETIRIZINE HCL 10 MG TABLET PO SCH (09:26)
[2020-01-16] MEDS: THIAMINE 100 MG TABLET. PO SCH (09:26)
[2020-01-16] MEDS: FLUoxetine HCL 20 MG CAPSULE PO SCH (09:26)
[2020-01-16] MEDS: buPROPion XL 150 MG TAB.ER.24H PO SCH (09:27)
[2020-01-16] MEDS: MIDODRINE 5 MG TABLET PO SCH ×2 (09:27→17:56)
[2020-01-16 15:50] VITALS: BP 92/64
[2020-01-16] MEDS: DIVALPROEX ER 250 MG TAB.ER.24H. PO SCH (19:51)
[2020-01-16] MEDS: DIVALPROEX ER 500 MG TAB.ER.24H PO SCH (19:52)
[2020-01-16] MEDS: TEMAZEPAM 15 MG CAPSULE PO SCH (19:52)
--- NOTE | 2020-01-16 21:25 | PDOC ---
Exam Note: Norris Note: Please also refer to the separate dictated note~for this date of service dictated separately.~Patient seen individually. Discussed the patient with Nursing staff reviewed the chart.~Reviewed interim history and current functioning. Reviewed vital signs,~Labs/ Radiology~and current medications noted below. Continue current treatment with the changes noted in the dictated addendum note Assessment: Vital Signs/I&O: Vital Signs Date Time Temp Pulse Resp B/P (MAP) Pulse Ox O2 Delivery O2 Flow Rate FiO2 01/16/20 17:56 80 92/64 01/16/20 15:50 97.5 18 92 01/16/20 05:41 Room Air I & O 01/15/20 01/15/20 01/16/20 15:00 23:00 07:00 Intake Total 720 ml 480 ml 240 ml Balance 720 ml 480 ml 240 ml Current Medications: I have reviewed the current psychotropics carefully including drug interactions. Risk benefit ratio favors no change other than as noted in my dictated progress note. Diagnosis: Problems: (1) Anxiety disorder (2) Impulse control disorder (3) Schizoaffective disorder, chronic condition with acute exacerbation (4) Personality disorder in adult LI CABRERA MD Jan 16, 2020 21:25
[2020-01-17 06:42] VITALS: BP 130/76
[2020-01-17] MEDS: CETIRIZINE HCL 10 MG TABLET PO SCH (08:31)
[2020-01-17] MEDS: buPROPion XL 150 MG TAB.ER.24H PO SCH (08:31)
[2020-01-17] MEDS: CHOLECALCIFEROL (VITAMIN D3) 1,000 UNIT TABLET PO SCH (08:31)
[2020-01-17] MEDS: FLUoxetine HCL 20 MG CAPSULE PO SCH (08:32)
[2020-01-17] MEDS: MULTIVITAMIN with MINERAL TABLET. PO SCH (08:32)
[2020-01-17] MEDS: ASPIRIN ENTERIC COATED 81 MG TABLET.DR. PO SCH (08:32)
[2020-01-17] MEDS: MIDODRINE 5 MG TABLET PO SCH ×2 (08:32→17:19)
[2020-01-17] MEDS: risperiDONE 0.5 MG TABLET. PO SCH ×2 (08:33→17:19)
[2020-01-17] MEDS: PALIPERIDONE 6 MG TAB.ER.24. PO SCH ×2 (08:33→23:00)
[2020-01-17] MEDS: THIAMINE 100 MG TABLET. PO SCH (08:33)
[2020-01-17 09:57] LABS: BASO % 0 % (0-3); EOS # 0.1 x10^3/uL (0.0-0.7); EOS % 2 % (0-3); HEMATOCRIT 41.5 % (36.0-47.0); HEMOGLOBIN 13.3 g/dL (12.0-15.5); LYMPH # 1.2 x10^3/uL (1.0-4.8); LYMPH % 21 % (24-48); MEAN CORPUSCULAR HEMOGLOBIN 30 pg (25-35); MEAN CORPUSCULAR HGB CONC 32 g/dL (31-37); MEAN CORPUSCULAR VOLUME 94 fL (79-100); MONO # 0.6 x10^3/uL (0.0-1.1); MONO % 11 % (0-9); NEUT # 3.8 x10^3uL (1.8-7.7); NEUT % 67 % (31-73); PLATELET COUNT 255 x10^3/uL (140-400); RED BLOOD COUNT 4.42 x10^6/uL (3.50-5.40); RED CELL DISTRIBUTION WIDTH 16.3 % (11.5-14.5); WHITE BLOOD COUNT 5.7 x10^3/uL (4.0-11.0)
[2020-01-17 10:10] LABS: ALBUMIN 3.3 g/dL (3.4-5.0); ALBUMIN/GLOBULIN RATIO 0.9 (1.0-1.7); CALCIUM 9.2 mg/dL (8.5-10.1); CREATININE 0.6 mg/dL (0.6-1.0); GFR 99.1; POTASSIUM 4.3 mmol/L (3.5-5.1); TOTAL BILIRUBIN 0.2 mg/dL (0.2-1.0)
[2020-01-17 16:29] VITALS: BP 121/78
--- NOTE | 2020-01-17 19:03 | PN ---
DATE: 01/16/2020 PSYCHIATRIC PROGRESS NOTE This late entry, 01/16, covers the elements not covered in my initial note. SUBJECTIVE: I met with the patient in the evening and staffed at a treatment team meeting with the entire team in the morning. The patient slept 7 hours previous night. She has been calm, cooperative, not talking about drugs and appetite 100%, was having hallucinations on Monday, but none since then. REVIEW OF SYSTEMS: No CV, , pulmonary, eye, ENT systems symptoms on review. MENTAL STATUS EXAM: Oriented to herself and situation. Speech has some latency, low in volume, coherent, abstraction fair, computation impaired, language function intact, attention span short. Mood and affect withdrawn. LABORATORY DATA: Reviewed. IMPRESSION: Unchanged from initial note. PLAN: No change from initial note. MAN Adonis CABRERA MD DR: FRED/minnie JOB#: [id number] / [id number]
--- NOTE | 2020-01-17 21:24 | PDOC ---
Exam Note: Norris Note: Please also refer to the separate dictated note~for this date of service dictated separately.~Patient seen individually. Discussed the patient with Nursing staff reviewed the chart.~Reviewed interim history and current functioning. Reviewed vital signs,~Labs/ Radiology~and current medications noted below. Continue current treatment with the changes noted in the dictated addendum note Assessment: Vital Signs/I&O: Vital Signs Date Time Temp Pulse Resp B/P (MAP) Pulse Ox O2 Delivery O2 Flow Rate FiO2 01/17/20 17:19 81 121/78 01/17/20 16:29 97.9 16 90 01/16/20 05:41 Room Air I & O 01/16/20 01/16/20 01/17/20 15:00 23:00 07:00 Intake Total 960 ml 480 ml 240 ml Balance 960 ml 480 ml 240 ml Labs: Laboratory Tests Test 01/17/20 09:30 White Blood Count 5.7 x10^3/uL (4.0-11.0) Red Blood Count 4.42 x10^6/uL (3.50-5.40) Hemoglobin 13.3 g/dL (12.0-15.5) Hematocrit 41.5 % (36.0-47.0) Mean Corpuscular Volume 94 fL (79-100) Mean Corpuscular Hemoglobin 30 pg (25-35) Mean Corpuscular Hemoglobin Concent 32 g/dL (31-37) Red Cell Distribution Width 16.3 % (11.5-14.5) H Platelet Count 255 x10^3/uL (140-400) Neutrophils (%) (Auto) 67 % (31-73) Lymphocytes (%) (Auto) 21 % (24-48) L Monocytes (%) (Auto) 11 % (0-9) H Eosinophils (%) (Auto) 2 % (0-3) Basophils (%) (Auto) 0 % (0-3) Neutrophils # (Auto) 3.8 x10^3uL (1.8-7.7) Lymphocytes # (Auto) 1.2 x10^3/uL (1.0-4.8) Monocytes # (Auto) 0.6 x10^3/uL (0.0-1.1) Eosinophils # (Auto) 0.1 x10^3/uL (0.0-0.7) Basophils # (Auto) 0.0 x10^3/uL (0.0-0.2) Sodium Level 142 mmol/L (136-145) Potassium Level 4.3 mmol/L (3.5-5.1) Chloride Level 105 mmol/L (98-107) Carbon Dioxide Level 28 mmol/L (21-32) Anion Gap 9 (6-14) Blood Urea Nitrogen 12 mg/dL (7-20) Creatinine 0.6 mg/dL (0.6-1.0) Estimated GFR (Cockcroft-Gault) 99.1 BUN/Creatinine Ratio 20 (6-20) Glucose Level 131 mg/dL (70-99) H Calcium Level 9.2 mg/dL (8.5-10.1) Total Bilirubin 0.2 mg/dL (0.2-1.0) Aspartate Amino Transferase (AST) 17 U/L (15-37) Alanine Aminotransferase (ALT) 21 U/L (14-59) Alkaline Phosphatase 53 U/L (46-116) Total Protein 7.0 g/dL (6.4-8.2) Albumin 3.3 g/dL (3.4-5.0) L Albumin/Globulin Ratio 0.9 (1.0-1.7) L Current Medications: I have reviewed the current psychotropics carefully including drug interactions. Risk benefit ratio favors no change other than as noted in my dictated progress note. Diagnosis: Problems: (1) Anxiety disorder (2) Impulse control disorder (3) Schizoaffective disorder, chronic condition with acute exacerbation (4) Personality disorder in adult LI CABRERA MD Jan 17, 2020 21:24
[2020-01-17] MEDS: DIVALPROEX ER 500 MG TAB.ER.24H PO SCH (23:00)
[2020-01-17] MEDS: DIVALPROEX ER 250 MG TAB.ER.24H. PO SCH (23:00)
[2020-01-17] MEDS: TEMAZEPAM 15 MG CAPSULE PO SCH (23:00)
--- NOTE | 2020-01-18 01:49 | PN ---
DATE: 01/15/2020 This late entry 01/15/2020 covers elements not covered in my initial note. SUBJECTIVE: I met with the patient in the evening of 01/15/2020. Per EVELIO Fonseca, the patient slept 8-1/2 hours previous night. She has not been talking about the spirit of Maira running around the unit. She stated "I am done with her." She was more interactive with peers. REVIEW OF SYSTEMS: No CV, , pulmonary, eye system symptoms on review. MENTAL STATUS EXAM: Reasonably oriented. Speech has some latency, low in volume, coherent. Abstraction fair, computation impaired, language function intact, attention span short. Mood and affect somewhat withdrawn. LABORATORY DATA: Reviewed. IMPRESSION: Unchanged from initial note. PLAN: No change from initial note. MAN Adonis CABRERA MD DR: FRED/minnie JOB#: [id number] / [id number]
[2020-01-18 06:38] VITALS: BP 101/66
[2020-01-18] MEDS: ASPIRIN ENTERIC COATED 81 MG TABLET.DR. PO SCH (09:25)
[2020-01-18] MEDS: MIDODRINE 5 MG TABLET PO SCH ×2 (09:25→17:24)
[2020-01-18] MEDS: FLUoxetine HCL 20 MG CAPSULE PO SCH (09:26)
[2020-01-18] MEDS: risperiDONE 0.5 MG TABLET. PO SCH ×2 (09:26→17:24)
[2020-01-18] MEDS: CHOLECALCIFEROL (VITAMIN D3) 1,000 UNIT TABLET PO SCH (09:26)
[2020-01-18] MEDS: PALIPERIDONE 6 MG TAB.ER.24. PO SCH ×2 (09:26→21:17)
[2020-01-18] MEDS: buPROPion XL 150 MG TAB.ER.24H PO SCH (09:26)
[2020-01-18] MEDS: MULTIVITAMIN with MINERAL TABLET. PO SCH (09:26)
[2020-01-18] MEDS: THIAMINE 100 MG TABLET. PO SCH (09:26)
[2020-01-18] MEDS: CETIRIZINE HCL 10 MG TABLET PO SCH (09:26)
[2020-01-18 16:31] VITALS: BP 101/67
[2020-01-18] MEDS: TEMAZEPAM 15 MG CAPSULE PO SCH (21:17)
[2020-01-18] MEDS: DIVALPROEX ER 250 MG TAB.ER.24H. PO SCH (21:17)
[2020-01-18] MEDS: DIVALPROEX ER 500 MG TAB.ER.24H PO SCH (21:17)
--- NOTE | 2020-01-18 21:24 | PDOC ---
Exam Note: Norris Note: Please also refer to the separate dictated note~for this date of service dictated separately.~Patient seen individually. Discussed the patient with Nursing staff reviewed the chart.~Reviewed interim history and current functioning. Reviewed vital signs,~Labs/ Radiology~and current medications noted below. Continue current treatment with the changes noted in the dictated addendum note Assessment: Vital Signs/I&O: Vital Signs Date Time Temp Pulse Resp B/P (MAP) Pulse Ox O2 Delivery O2 Flow Rate FiO2 01/18/20 17:24 80 101/67 01/18/20 16:31 98.0 18 98 Room Air I & O 01/17/20 01/17/20 01/18/20 15:00 23:00 07:00 Intake Total 1080 ml 480 ml Balance 1080 ml 480 ml Current Medications: I have reviewed the current psychotropics carefully including drug interactions. Risk benefit ratio favors no change other than as noted in my dictated progress note. Diagnosis: Problems: (1) Anxiety disorder (2) Impulse control disorder (3) Schizoaffective disorder, chronic condition with acute exacerbation (4) Personality disorder in adult LI CABRERA MD Jan 18, 2020 21:24
[2020-01-19 06:35] VITALS: BP 108/69
[2020-01-19] MEDS: MIDODRINE 5 MG TABLET PO SCH ×2 (09:28→17:19)
[2020-01-19] MEDS: ASPIRIN ENTERIC COATED 81 MG TABLET.DR. PO SCH (09:28)
[2020-01-19] MEDS: busPIRone 5 MG TABLET. PO SCH ×2 (09:28→17:18)
[2020-01-19] MEDS: buPROPion XL 150 MG TAB.ER.24H PO SCH (09:29)
[2020-01-19] MEDS: PALIPERIDONE 6 MG TAB.ER.24. PO SCH ×2 (09:29→20:28)
[2020-01-19] MEDS: THIAMINE 100 MG TABLET. PO SCH (09:29)
[2020-01-19] MEDS: MULTIVITAMIN with MINERAL TABLET. PO SCH (09:29)
[2020-01-19] MEDS: FLUoxetine HCL 20 MG CAPSULE PO SCH (09:29)
[2020-01-19] MEDS: risperiDONE 0.5 MG TABLET. PO SCH ×2 (09:29→17:19)
[2020-01-19] MEDS: CETIRIZINE HCL 10 MG TABLET PO SCH (09:29)
[2020-01-19] MEDS: CHOLECALCIFEROL (VITAMIN D3) 1,000 UNIT TABLET PO SCH (09:29)
[2020-01-19 16:16] VITALS: BP 104/73
[2020-01-19] MEDS: DIVALPROEX ER 500 MG TAB.ER.24H PO SCH (20:28)
[2020-01-19] MEDS: TEMAZEPAM 15 MG CAPSULE PO SCH (20:29)
[2020-01-19] MEDS: DIVALPROEX ER 250 MG TAB.ER.24H. PO SCH (20:29)
--- NOTE | 2020-01-19 21:28 | PDOC ---
Exam Note: Norris Note: Please also refer to the separate dictated note~for this date of service dictated separately.~Patient seen individually. Discussed the patient with Nursing staff reviewed the chart.~Reviewed interim history and current functioning. Reviewed vital signs,~Labs/ Radiology~and current medications noted below. Continue current treatment with the changes noted in the dictated addendum note Assessment: Vital Signs/I&O: Vital Signs Date Time Temp Pulse Resp B/P (MAP) Pulse Ox O2 Delivery O2 Flow Rate FiO2 01/19/20 17:19 77 104/73 01/19/20 16:16 98.0 16 94 01/18/20 16:31 Room Air I & O 01/18/20 01/18/20 01/19/20 15:00 23:00 07:00 Intake Total 700 ml 460 ml 120 ml Balance 700 ml 460 ml 120 ml Current Medications: Meds: Current Medications Medications (Trade) Dose Ordered Sig/Liv Route PRN Reason Start Time Stop Time Status Last Admin Dose Admin Buspirone HCl (Buspar) 5 mg [id number] PO 01/19/20 09:00 01/19/20 17:18 I have reviewed the current psychotropics carefully including drug interactions. Risk benefit ratio favors no change other than as noted in my dictated progress note. Diagnosis: Problems: (1) Anxiety disorder (2) Impulse control disorder (3) Schizoaffective disorder, chronic condition with acute exacerbation (4) Personality disorder in adult LI CABRERA MD Jan 19, 2020 21:28
--- NOTE | 2020-01-20 05:27 | PN ---
DATE: 01/17/2020 PSYCHIATRIC PROGRESS NOTE This late entry 01/17/2020 covers elements not covered in my initial note. SUBJECTIVE: I met with the patient evening of 01/17/2020. Per EVELIO Andrew, the patient slept 5-1/2 hours previous night. She has been quiet, withdrawn, talking about something related to the "blood of the saints." She does appear intermittently psychotic, but no suicidal ideation. REVIEW OF SYSTEMS: No CV, , pulmonary, eye system symptoms on review. Does admit to some tiredness. MENTAL STATUS EXAM: Oriented to herself and situation. Speech has some latency, low in rate and rhythm, often responses monosyllabic. Abstraction fair, computation impaired, language function intact, attention span short. Mood and affect, withdrawn. LABORATORY DATA: Reviewed. IMPRESSION: Unchanged from initial note. PLAN: No change from initial note. MAN Adonis CABRERA MD DR: FRED/minnie JOB#: [id number] / [id number]
[2020-01-20 06:02] VITALS: BP 110/73
[2020-01-20 08:13] LABS: BASO % 0 % (0-3); EOS # 0.1 x10^3/uL (0.0-0.7); EOS % 3 % (0-3); HEMATOCRIT 41.6 % (36.0-47.0); HEMOGLOBIN 13.6 g/dL (12.0-15.5); LYMPH # 1.6 x10^3/uL (1.0-4.8); LYMPH % 31 % (24-48); MEAN CORPUSCULAR HEMOGLOBIN 30 pg (25-35); MEAN CORPUSCULAR HGB CONC 33 g/dL (31-37); MEAN CORPUSCULAR VOLUME 93 fL (79-100); MONO # 0.5 x10^3/uL (0.0-1.1); MONO % 10 % (0-9); NEUT # 2.9 x10^3uL (1.8-7.7); NEUT % 56 % (31-73); PLATELET COUNT 248 x10^3/uL (140-400); RED BLOOD COUNT 4.46 x10^6/uL (3.50-5.40); RED CELL DISTRIBUTION WIDTH 16.3 % (11.5-14.5); WHITE BLOOD COUNT 5.2 x10^3/uL (4.0-11.0)
[2020-01-20 08:51] LABS: ALBUMIN/GLOBULIN RATIO 0.9 (1.0-1.7); ALK PHOS 48 U/L (46-116); ALT (SGPT) 20 U/L (14-59); ANION GAP 9 (6-14); AST (SGOT) 16 U/L (15-37); BLOOD UREA NITROGEN 12 mg/dL (7-20); BUN/CREATININE RATIO 24 (6-20); CALCIUM 8.8 mg/dL (8.5-10.1); CARBON DIOXIDE 28 mmol/L (21-32); CHLORIDE 107 mmol/L (98-107); CREATININE 0.5 mg/dL (0.6-1.0); GFR 122.3; GLUCOSE 74 mg/dL (70-99); POTASSIUM 3.7 mmol/L (3.5-5.1); SODIUM 144 mmol/L (136-145); TOTAL BILIRUBIN 0.2 mg/dL (0.2-1.0); TOTAL PROTEIN 6.5 g/dL (6.4-8.2)
[2020-01-20] MEDS: MIDODRINE 5 MG TABLET PO SCH ×2 (08:54→16:49)
[2020-01-20] MEDS: busPIRone 5 MG TABLET. PO SCH ×2 (08:54→16:49)
[2020-01-20] MEDS: ASPIRIN ENTERIC COATED 81 MG TABLET.DR. PO SCH (08:54)
[2020-01-20] MEDS: PALIPERIDONE 6 MG TAB.ER.24. PO SCH ×2 (08:54→20:53)
[2020-01-20] MEDS: risperiDONE 0.5 MG TABLET. PO SCH ×2 (08:55→16:49)
[2020-01-20] MEDS: buPROPion XL 150 MG TAB.ER.24H PO SCH (08:55)
[2020-01-20] MEDS: FLUoxetine HCL 20 MG CAPSULE PO SCH (08:55)
[2020-01-20] MEDS: CHOLECALCIFEROL (VITAMIN D3) 1,000 UNIT TABLET PO SCH (08:55)
[2020-01-20] MEDS: THIAMINE 100 MG TABLET. PO SCH (08:55)
[2020-01-20] MEDS: MULTIVITAMIN with MINERAL TABLET. PO SCH (08:55)
[2020-01-20] MEDS: CETIRIZINE HCL 10 MG TABLET PO SCH (08:55)
[2020-01-20 09:09] LABS: VAL ACID 86 mcg/mL (50-100)
[2020-01-20 15:51] VITALS: BP 115/77
[2020-01-20] MEDS: DIVALPROEX ER 500 MG TAB.ER.24H PO SCH (20:53)
[2020-01-20] MEDS: TEMAZEPAM 15 MG CAPSULE PO SCH (20:53)
[2020-01-20] MEDS: DIVALPROEX ER 250 MG TAB.ER.24H. PO SCH (20:54)
[2020-01-20] MEDS ORDERED: cloZAPine 25 MG TABLET PO SCH (21:00)
--- NOTE | 2020-01-20 21:18 | PDOC ---
Exam Note: Norris Note: Please also refer to the separate dictated note~for this date of service dictated separately.~Patient seen individually. Discussed the patient with Nursing staff reviewed the chart.~Reviewed interim history and current functioning. Reviewed vital signs,~Labs/ Radiology~and current medications noted below. Continue current treatment with the changes noted in the dictated addendum note Assessment: Vital Signs/I&O: Vital Signs Date Time Temp Pulse Resp B/P (MAP) Pulse Ox O2 Delivery O2 Flow Rate FiO2 01/20/20 16:49 76 115/77 01/20/20 15:51 97.5 16 91 01/18/20 16:31 Room Air I & O 01/19/20 01/19/20 01/20/20 15:00 23:00 07:00 Intake Total 960 ml 240 ml 120 ml Balance 960 ml 240 ml 120 ml Labs: Laboratory Tests Test 01/20/20 06:40 White Blood Count 5.2 x10^3/uL (4.0-11.0) Red Blood Count 4.46 x10^6/uL (3.50-5.40) Hemoglobin 13.6 g/dL (12.0-15.5) Hematocrit 41.6 % (36.0-47.0) Mean Corpuscular Volume 93 fL (79-100) Mean Corpuscular Hemoglobin 30 pg (25-35) Mean Corpuscular Hemoglobin Concent 33 g/dL (31-37) Red Cell Distribution Width 16.3 % (11.5-14.5) H Platelet Count 248 x10^3/uL (140-400) Neutrophils (%) (Auto) 56 % (31-73) Lymphocytes (%) (Auto) 31 % (24-48) Monocytes (%) (Auto) 10 % (0-9) H Eosinophils (%) (Auto) 3 % (0-3) Basophils (%) (Auto) 0 % (0-3) Neutrophils # (Auto) 2.9 x10^3uL (1.8-7.7) Lymphocytes # (Auto) 1.6 x10^3/uL (1.0-4.8) Monocytes # (Auto) 0.5 x10^3/uL (0.0-1.1) Eosinophils # (Auto) 0.1 x10^3/uL (0.0-0.7) Basophils # (Auto) 0.0 x10^3/uL (0.0-0.2) Sodium Level 144 mmol/L (136-145) Potassium Level 3.7 mmol/L (3.5-5.1) Chloride Level 107 mmol/L (98-107) Carbon Dioxide Level 28 mmol/L (21-32) Anion Gap 9 (6-14) Blood Urea Nitrogen 12 mg/dL (7-20) Creatinine 0.5 mg/dL (0.6-1.0) L Estimated GFR (Cockcroft-Gault) 122.3 BUN/Creatinine Ratio 24 (6-20) H Glucose Level 74 mg/dL (70-99) Calcium Level 8.8 mg/dL (8.5-10.1) Total Bilirubin 0.2 mg/dL (0.2-1.0) Aspartate Amino Transferase (AST) 16 U/L (15-37) Alanine Aminotransferase (ALT) 20 U/L (14-59) Alkaline Phosphatase 48 U/L (46-116) Total Protein 6.5 g/dL (6.4-8.2) Albumin 3.0 g/dL (3.4-5.0) L Albumin/Globulin Ratio 0.9 (1.0-1.7) L Valproic Acid Level 86 mcg/mL (50-100) Valproic Acid Last Dose Date 01/19/20 Valproic Acid Last Dose Time 2100 Current Medications: I have reviewed the current psychotropics carefully including drug interactions. Risk benefit ratio favors no change other than as noted in my dictated progress note. Diagnosis: Problems: (1) Anxiety disorder (2) Impulse control disorder (3) Schizoaffective disorder, chronic condition with acute exacerbation (4) Personality disorder in adult RICKLI MD Jan 20, 2020 21:18
--- NOTE | 2020-01-21 01:07 | PN ---
DATE: 01/18/2020 This late entry 01/18/2020 covers elements not covered in my initial note. SUBJECTIVE: I met with the patient in the evening. Per EVELIO Way, the patient slept 6-1/2 hours previous night. She remains somewhat anxious, at times paranoid, but not talking about Maira. REVIEW OF SYSTEMS: No CV, , pulmonary, eye, ENT system symptoms on review. MENTAL STATUS EXAM: Reasonably oriented. Speech is coherent, has some latency. Abstraction fair, computation impaired, language function intact, attention span short. Mood and affect withdrawn. LABORATORY DATA: Reviewed. IMPRESSION: Schizoaffective disorder, bipolar type, mixed with psychotic features. Rest unchanged. PLAN: Start BuSpar 5 mg twice a day. Maintain Wellbutrin, Depakote ER, Risperdal, Prozac along with oral and intramuscular Invega and Restoril 15 mg at bedtime. Adjust further as clinically indicated. LI CABRERA MD DR: FRED/minnie JOB#: [id number] / [id number]
--- NOTE | 2020-01-21 01:10 | PN ---
DATE: 01/19/2020 PSYCHIATRIC PROGRESS NOTE This late entry 01/19/2020 covers elements not covered in my initial note. SUBJECTIVE: I met with the patient evening of 01/19/2020. The patient slept 6 hours previous night per EVELIO Way. The patient has not been voicing her psychotic symptoms with nursing staff, but when I questioned her, she was still talking about Maira. She stated Maira had gone away, but because the patient had pushed Maira away, she is coming back in different forms to torment her. We addressed this. REVIEW OF SYSTEMS: No CV, , pulmonary, eye, ENT system symptoms on review. MENTAL STATUS EXAMINATION: The patient is reasonably oriented. Speech is coherent, has some latency. Abstraction fair, computation impaired, language function intact, attention span short. Mood and affect somewhat withdrawn. LABORATORY DATA: Reviewed. IMPRESSION: Schizoaffective disorder, bipolar type, mixed with psychotic features; anxiety disorder, unspecified. Rest unchanged. PLAN: No change from initial note. Valproic acid level is therapeutic. Given the multiple antipsychotics the patient is taking currently and the fact that she continues to be psychotic, she may be a candidate for Clozaril. We will give another 24 hours and then decide. LI CABRERA MD DR: FRED/minnie JOB#: [id number] / [id number]
[2020-01-21 06:21] VITALS: BP 124/80
[2020-01-21] MEDS: ASPIRIN ENTERIC COATED 81 MG TABLET.DR. PO SCH (08:24)
[2020-01-21] MEDS: busPIRone 5 MG TABLET. PO SCH ×2 (08:24→16:52)
[2020-01-21] MEDS: CHOLECALCIFEROL (VITAMIN D3) 1,000 UNIT TABLET PO SCH (08:25)
[2020-01-21] MEDS: CETIRIZINE HCL 10 MG TABLET PO SCH (08:25)
[2020-01-21] MEDS: FLUoxetine HCL 20 MG CAPSULE PO SCH (08:25)
[2020-01-21] MEDS: buPROPion XL 150 MG TAB.ER.24H PO SCH (08:25)
[2020-01-21] MEDS: THIAMINE 100 MG TABLET. PO SCH (08:25)
[2020-01-21] MEDS: MIDODRINE 5 MG TABLET PO SCH ×2 (08:25→16:52)
[2020-01-21] MEDS: MULTIVITAMIN with MINERAL TABLET. PO SCH (08:25)
[2020-01-21] MEDS: PALIPERIDONE 6 MG TAB.ER.24. PO SCH (08:25)
[2020-01-21 16:10] VITALS: BP 101/70
[2020-01-21] MEDS: cloZAPine 25 MG TABLET PO SCH (19:53)
[2020-01-21] MEDS: DIVALPROEX ER 500 MG TAB.ER.24H PO SCH (19:54)
[2020-01-21] MEDS: DIVALPROEX ER 250 MG TAB.ER.24H. PO SCH (19:55)
[2020-01-21] MEDS: TEMAZEPAM 15 MG CAPSULE PO SCH (19:56)
--- NOTE | 2020-01-21 21:28 | PDOC ---
Exam Note: Norris Note: Please also refer to the separate dictated note~for this date of service dictated separately.~Patient seen individually. Discussed the patient with Nursing staff reviewed the chart.~Reviewed interim history and current functioning. Reviewed vital signs,~Labs/ Radiology~and current medications noted below. Continue current treatment with the changes noted in the dictated addendum note Assessment: Vital Signs/I&O: Vital Signs Date Time Temp Pulse Resp B/P (MAP) Pulse Ox O2 Delivery O2 Flow Rate FiO2 01/21/20 16:52 76 101/70 01/21/20 16:10 97.6 16 91 01/18/20 16:31 Room Air I & O 01/20/20 01/20/20 01/21/20 15:00 23:00 07:00 Intake Total 960 ml 240 ml 120 ml Balance 960 ml 240 ml 120 ml Current Medications: Meds: Current Medications Medications (Trade) Dose Ordered Sig/Liv Route PRN Reason Start Time Stop Time Status Last Admin Dose Admin Clozapine (Clozaril) 25 mg HS PO 01/21/20 21:00 01/21/20 19:53 I have reviewed the current psychotropics carefully including drug interactions. Risk benefit ratio favors no change other than as noted in my dictated progress note. Diagnosis: Problems: (1) Anxiety disorder (2) Impulse control disorder (3) Schizoaffective disorder, chronic condition with acute exacerbation (4) Personality disorder in adult LI CABRERA MD Jan 21, 2020 21:28
--- NOTE | 2020-01-22 04:17 | PN ---
DATE: 01/20/2020 PSYCHIATRIC PROGRESS NOTE This late entry 01/20/2020 covers elements not covered in my initial note. SUBJECTIVE: I met with the patient evening of 01/20/2020. Per EVELIO Perkins, the patient remains somewhat paranoid. She was stating that the night nurse, Rayna, was mixing strychnine and arsenic in her medications and she refused her meds initially, took them later. She reportedly has been hallucinating, seeing bugs on the floor, stomping on them, wanting to take the train to [place], somewhat confused. REVIEW OF SYSTEMS: Complains of tiredness. No CV, , EYE, ENT or PULMONARY system symptoms on review. MENTAL STATUS EXAM: Reasonably oriented. Speech has some latency, coherent, often responses monosyllabic. Abstraction fair, computation impaired, language function intact, attention span short. Mood and affect somewhat withdrawn. LABORATORY DATA: Reviewed. IMPRESSION: Schizoaffective disorder, bipolar type, mixed with psychotic features. Rest unchanged. PLAN: The patient has failed her current antipsychotics including oral and IM Invega and Risperdal currently at 1 mg a day in addition to the Invega. In view of all of this and her ongoing psychotic symptoms, we will start Clozaril 25 mg at bedtime. Check weekly CBC, absolute neutrophil count. Increase Clozaril gradually. Maintain the rest of the psychotropics unchanged including Depakote, Wellbutrin, Prozac for now along with Restoril and BuSpar. MAN Adonis CABRERA MD DR: FRED/minnie JOB#: [id number] / [id number]
[2020-01-22 05:57] VITALS: BP 100/66
[2020-01-22] MEDS: MIDODRINE 5 MG TABLET PO SCH ×2 (08:15→17:07)
[2020-01-22] MEDS: CHOLECALCIFEROL (VITAMIN D3) 1,000 UNIT TABLET PO SCH (08:15)
[2020-01-22] MEDS: CETIRIZINE HCL 10 MG TABLET PO SCH (08:15)
[2020-01-22] MEDS: ASPIRIN ENTERIC COATED 81 MG TABLET.DR. PO SCH (08:16)
[2020-01-22] MEDS: MULTIVITAMIN with MINERAL TABLET. PO SCH (08:16)
[2020-01-22] MEDS: FLUoxetine HCL 20 MG CAPSULE PO SCH (08:16)
[2020-01-22] MEDS: busPIRone 5 MG TABLET. PO SCH ×2 (08:16→17:07)
[2020-01-22] MEDS: THIAMINE 100 MG TABLET. PO SCH (08:16)
[2020-01-22] MEDS: buPROPion XL 150 MG TAB.ER.24H PO SCH (08:16)
[2020-01-22 15:57] VITALS: BP 97/65
[2020-01-22] MEDS: DIVALPROEX ER 250 MG TAB.ER.24H. PO SCH (19:52)
[2020-01-22] MEDS: DIVALPROEX ER 500 MG TAB.ER.24H PO SCH (19:52)
[2020-01-22] MEDS: cloZAPine 25 MG TABLET PO SCH (19:52)
[2020-01-22] MEDS: TEMAZEPAM 15 MG CAPSULE PO SCH (19:53)
--- NOTE | 2020-01-22 21:23 | PDOC ---
Exam Note: Norris Note: Please also refer to the separate dictated note~for this date of service dictated separately.~Patient seen individually. Discussed the patient with Nursing staff reviewed the chart.~Reviewed interim history and current functioning. Reviewed vital signs,~Labs/ Radiology~and current medications noted below. Continue current treatment with the changes noted in the dictated addendum note Assessment: Vital Signs/I&O: Vital Signs Date Time Temp Pulse Resp B/P (MAP) Pulse Ox O2 Delivery O2 Flow Rate FiO2 01/22/20 17:07 76 97/65 01/22/20 15:57 97.7 18 91 01/18/20 16:31 Room Air I & O 01/21/20 01/21/20 01/22/20 15:00 23:00 07:00 Intake Total 960 ml 600 ml Balance 960 ml 600 ml Current Medications: I have reviewed the current psychotropics carefully including drug interactions. Risk benefit ratio favors no change other than as noted in my dictated progress note. Diagnosis: Problems: (1) Anxiety disorder (2) Impulse control disorder (3) Schizoaffective disorder, chronic condition with acute exacerbation (4) Personality disorder in adult IL CABRERA MD Jan 22, 2020 21:23
--- NOTE | 2020-01-22 22:20 | PN ---
DATE: 01/21/2020 PSYCHIATRIC PROGRESS NOTE This late entry 01/21/2020 covers elements not covered in my initial note. SUBJECTIVE: I met with the patient evening of 01/21/2020. Per EVELIO Rojas, the patient slept 7 hours previous night, has had some intermittent hallucinations, paranoia, but interactive with staff. REVIEW OF SYSTEMS: Positive for some tiredness. No CV, , pulmonary, eye system symptoms on review. MENTAL STATUS EXAM: Reasonably oriented. Speech moderate latency, often responses monosyllabic. Abstraction fair, computation impaired, language function intact, attention span short. Mood and affect somewhat withdrawn. LABORATORY DATA: Reviewed. IMPRESSION: Schizoaffective disorder, bipolar type, mixed with psychotic features. Rest unchanged. PLAN: Stop the oral Invega, maintain Invega Sustenna IM. Continue Wellbutrin, Depakote, fluoxetine and Clozaril has been started 25 mg at bedtime. Follow weekly CBC, absolute neutrophil counts. Adjust further as clinically indicated. Maintain Restoril 15 mg at bedtime p.r.n. MAN Adonis CABRERA MD DR: FRED/minnie JOB#: [id number] / [id number]
[2020-01-23 06:09] VITALS: BP 94/68
[2020-01-23] MEDS: buPROPion XL 150 MG TAB.ER.24H PO SCH (08:32)
[2020-01-23] MEDS: ASPIRIN ENTERIC COATED 81 MG TABLET.DR. PO SCH (08:32)
[2020-01-23] MEDS: CHOLECALCIFEROL (VITAMIN D3) 1,000 UNIT TABLET PO SCH (08:32)
[2020-01-23] MEDS: FLUoxetine HCL 20 MG CAPSULE PO SCH (08:32)
[2020-01-23] MEDS: CETIRIZINE HCL 10 MG TABLET PO SCH (08:32)
[2020-01-23] MEDS: MULTIVITAMIN with MINERAL TABLET. PO SCH (08:32)
[2020-01-23] MEDS: THIAMINE 100 MG TABLET. PO SCH (08:32)
[2020-01-23] MEDS: busPIRone 5 MG TABLET. PO SCH ×2 (08:34→17:38)
[2020-01-23] MEDS: MIDODRINE 5 MG TABLET PO SCH ×2 (08:34→17:39)
[2020-01-23] MEDS ORDERED: PALIPERIDONE PALMITATE 234 MG/1.5 ML SYRINGE KIT. IM SCH (09:00)
[2020-01-23 16:22] VITALS: BP 107/72
[2020-01-23] MEDS: cloZAPine 25 MG TABLET PO SCH (20:45)
[2020-01-23] MEDS: DIVALPROEX ER 500 MG TAB.ER.24H PO SCH (20:45)
[2020-01-23] MEDS: TEMAZEPAM 15 MG CAPSULE PO SCH (20:45)
[2020-01-23] MEDS: DIVALPROEX ER 250 MG TAB.ER.24H. PO SCH (20:45)
--- NOTE | 2020-01-23 21:21 | PDOC ---
Exam Note: Norris Note: Please also refer to the separate dictated note~for this date of service dictated separately.~Patient seen individually. Discussed the patient with Nursing staff reviewed the chart.~Reviewed interim history and current functioning. Reviewed vital signs,~Labs/ Radiology~and current medications noted below. Continue current treatment with the changes noted in the dictated addendum note Assessment: Vital Signs/I&O: Vital Signs Date Time Temp Pulse Resp B/P (MAP) Pulse Ox O2 Delivery O2 Flow Rate FiO2 01/23/20 17:39 76 107/72 01/23/20 16:22 97.2 16 92 01/23/20 06:09 Room Air I & O 01/22/20 01/22/20 01/23/20 15:00 23:00 07:00 Intake Total 720 ml 600 ml Balance 720 ml 600 ml Current Medications: Meds: Current Medications Medications (Trade) Dose Ordered Sig/Liv Route PRN Reason Start Time Stop Time Status Last Admin Dose Admin Paliperidone Palmitate (Invega Sustenna) 234 mg QMONTH IM 01/23/20 09:00 01/23/20 10:55 I have reviewed the current psychotropics carefully including drug interactions. Risk benefit ratio favors no change other than as noted in my dictated progress note. Diagnosis: Problems: (1) Anxiety disorder (2) Impulse control disorder (3) Schizoaffective disorder, chronic condition with acute exacerbation (4) Personality disorder in adult LI CABRERA MD Jan 23, 2020 21:21
[2020-01-24 06:47] VITALS: BP 119/84
[2020-01-24] MEDS: CHOLECALCIFEROL (VITAMIN D3) 1,000 UNIT TABLET PO SCH (08:54)
[2020-01-24] MEDS: MULTIVITAMIN with MINERAL TABLET. PO SCH (08:55)
[2020-01-24] MEDS: buPROPion XL 150 MG TAB.ER.24H PO SCH (08:55)
[2020-01-24] MEDS: ASPIRIN ENTERIC COATED 81 MG TABLET.DR. PO SCH (08:55)
[2020-01-24] MEDS: busPIRone 5 MG TABLET. PO SCH ×2 (08:55→17:35)
[2020-01-24] MEDS: FLUoxetine HCL 20 MG CAPSULE PO SCH (08:55)
[2020-01-24] MEDS: CETIRIZINE HCL 10 MG TABLET PO SCH (08:55)
[2020-01-24] MEDS: MIDODRINE 5 MG TABLET PO SCH ×2 (08:55→17:34)
[2020-01-24] MEDS: THIAMINE 100 MG TABLET. PO SCH (08:55)
[2020-01-24 15:38] VITALS: BP 101/66
[2020-01-24 20:46] LABS: BASO % 0 % (0-3); EOS # 0.1 x10^3/uL (0.0-0.7); EOS % 2 % (0-3); HEMATOCRIT 41.1 % (36.0-47.0); HEMOGLOBIN 13.3 g/dL (12.0-15.5); LYMPH # 1.6 x10^3/uL (1.0-4.8); LYMPH % 28 % (24-48); MEAN CORPUSCULAR HEMOGLOBIN 31 pg (25-35); MEAN CORPUSCULAR HGB CONC 32 g/dL (31-37); MEAN CORPUSCULAR VOLUME 94 fL (79-100); MONO # 0.7 x10^3/uL (0.0-1.1); MONO % 12 % (0-9); NEUT # 3.2 x10^3uL (1.8-7.7); NEUT % 57 % (31-73); PLATELET COUNT 262 x10^3/uL (140-400); RED BLOOD COUNT 4.35 x10^6/uL (3.50-5.40); RED CELL DISTRIBUTION WIDTH 16.6 % (11.5-14.5); WHITE BLOOD COUNT 5.7 x10^3/uL (4.0-11.0)
[2020-01-24 20:56] LABS: CALCIUM 9.5 mg/dL (8.5-10.1); CREATININE 0.6 mg/dL (0.6-1.0); GFR 99.1
[2020-01-24 21:02] LABS: ALBUMIN 3.4 g/dL (3.4-5.0); ALBUMIN/GLOBULIN RATIO 0.9 (1.0-1.7); TOTAL BILIRUBIN 0.1 mg/dL (0.2-1.0); TOTAL PROTEIN 7.3 g/dL (6.4-8.2)
--- NOTE | 2020-01-24 21:23 | PDOC ---
Exam Note: Norris Note: Please also refer to the separate dictated note~for this date of service dictated separately.~Patient seen individually. Discussed the patient with Nursing staff reviewed the chart.~Reviewed interim history and current functioning. Reviewed vital signs,~Labs/ Radiology~and current medications noted below. Continue current treatment with the changes noted in the dictated addendum note Assessment: Vital Signs/I&O: Vital Signs Date Time Temp Pulse Resp B/P (MAP) Pulse Ox O2 Delivery O2 Flow Rate FiO2 01/24/20 17:34 72 101/66 01/24/20 15:38 97.9 20 97 01/23/20 06:09 Room Air I & O 01/23/20 01/23/20 01/24/20 15:00 23:00 07:00 Intake Total 360 ml 480 ml 240 ml Balance 360 ml 480 ml 240 ml Labs: Laboratory Tests Test 01/24/20 20:40 White Blood Count 5.7 x10^3/uL (4.0-11.0) Red Blood Count 4.35 x10^6/uL (3.50-5.40) Hemoglobin 13.3 g/dL (12.0-15.5) Hematocrit 41.1 % (36.0-47.0) Mean Corpuscular Volume 94 fL (79-100) Mean Corpuscular Hemoglobin 31 pg (25-35) Mean Corpuscular Hemoglobin Concent 32 g/dL (31-37) Red Cell Distribution Width 16.6 % (11.5-14.5) H Platelet Count 262 x10^3/uL (140-400) Neutrophils (%) (Auto) 57 % (31-73) Lymphocytes (%) (Auto) 28 % (24-48) Monocytes (%) (Auto) 12 % (0-9) H Eosinophils (%) (Auto) 2 % (0-3) Basophils (%) (Auto) 0 % (0-3) Neutrophils # (Auto) 3.2 x10^3uL (1.8-7.7) Lymphocytes # (Auto) 1.6 x10^3/uL (1.0-4.8) Monocytes # (Auto) 0.7 x10^3/uL (0.0-1.1) Eosinophils # (Auto) 0.1 x10^3/uL (0.0-0.7) Basophils # (Auto) 0.0 x10^3/uL (0.0-0.2) D-Dimer (Radha) 0.37 mg/L (0.00-0.50) Sodium Level 143 mmol/L (136-145) Potassium Level 4.0 mmol/L (3.5-5.1) Chloride Level 107 mmol/L (98-107) Carbon Dioxide Level 30 mmol/L (21-32) Anion Gap 6 (6-14) Blood Urea Nitrogen 13 mg/dL (7-20) Creatinine 0.6 mg/dL (0.6-1.0) Estimated GFR (Cockcroft-Gault) 99.1 BUN/Creatinine Ratio 22 (6-20) H Glucose Level 133 mg/dL (70-99) H Calcium Level 9.5 mg/dL (8.5-10.1) Total Bilirubin 0.1 mg/dL (0.2-1.0) L Aspartate Amino Transferase (AST) 16 U/L (15-37) Alanine Aminotransferase (ALT) 20 U/L (14-59) Alkaline Phosphatase 63 U/L (46-116) Troponin I Quantitative 0.027 ng/mL (0-0.055) Total Protein 7.3 g/dL (6.4-8.2) Albumin 3.4 g/dL (3.4-5.0) Albumin/Globulin Ratio 0.9 (1.0-1.7) L Current Medications: I have reviewed the current psychotropics carefully including drug interactions. Risk benefit ratio favors no change other than as noted in my dictated progress note. Diagnosis: Problems: (1) Anxiety disorder (2) Impulse control disorder (3) Schizoaffective disorder, chronic condition with acute exacerbation (4) Personality disorder in adult RICKLI MD Jan 24, 2020 21:23
[2020-01-24] MEDS: DIVALPROEX ER 500 MG TAB.ER.24H PO SCH (22:11)
[2020-01-24] MEDS: cloZAPine 25 MG TABLET PO SCH (22:11)
[2020-01-24] MEDS: TEMAZEPAM 15 MG CAPSULE PO SCH (22:11)
[2020-01-24] MEDS: DIVALPROEX ER 250 MG TAB.ER.24H. PO SCH (22:11)
--- NOTE | 2020-01-24 22:42 | PN ---
DATE: 01/23/2020 PSYCHIATRIC PROGRESS NOTE This late entry 01/23/2020, covers elements not covered in my initial note. SUBJECTIVE: I met with the patient in the evening of 01/23/2020. The patient was also staffed at a treatment team meeting in the morning. Appetite 100%, sleeping average 7 hours, slept five and a half hours previous night. REVIEW OF SYSTEMS: Positive for some tiredness. No CV, , pulmonary, eye system symptoms on review. MENTAL STATUS EXAM: Reasonably oriented. Speech has moderate latency, often responses monosyllabic. Abstraction fair, computation impaired, language function intact. Mood and affect withdrawn, less psychotic overall. LABORATORY DATA: Reviewed. IMPRESSION: Unchanged from initial note. PLAN: No change from initial note. MAN Adonis CABRERA MD DR: FRED/minnie JOB#: [id number] / [id number]
--- NOTE | 2020-01-24 22:44 | PN ---
DATE: 01/22/2020 This late entry 01/22/2020 covers elements not covered in my initial note. SUBJECTIVE: I met with the patient in the evening of 01/22/2020. Per EVELIO Fonseca, the patient slept 7-1/2 hours previous night. She has been calm, cooperative, somewhat withdrawn, not talking about Maira, but still paranoid. Valproic acid level on 01/19/2019 is therapeutic at 86. REVIEW OF SYSTEMS: Positive for some tiredness. No CV, , pulmonary, eye system symptoms on review. MENTAL STATUS EXAMINATION: The patient is oriented to herself and situation. Speech moderate latency, often responses monosyllabic. Abstraction fair, computation impaired, language function intact. Mood and affect withdrawn. LABORATORY DATA: Reviewed. IMPRESSION: Schizoaffective disorder, bipolar type, mixed with psychotic features. Rest unchanged. PLAN: Continue psychotropics from initial note. Maintain Clozaril and increase gradually depending on blood counts. Invega and Risperdal have been stopped. Rest unchanged for now. LI CABRERA MD DR: FRED/minnie JOB#: [id number] / [id number]
[2020-01-25 06:34] VITALS: BP 98/61
[2020-01-25 06:48] LABS: BGAS PH 7.38 (7.35-7.45)
--- NOTE | 2020-01-25 06:54 | RAD ---
CHEST PA LATERAL History: Chest pain. Comparison: December 28, 2019 CT. Chest x-ray 2019 Findings: Right middle lobe mass, unchanged. Patchy bibasilar opacities. No pneumothorax. Unchanged heart size. Hyperinflation. No pleural effusion. Prior granulomatous disease within the chest. Impression: 1. Patchy bibasilar opacities, most likely atelectasis. 2. Right middle lobe mass, unchanged. Electronically signed by: Bc Lofton DO (01/25/2020 6:51 AM) [id number]
[2020-01-25] MEDS: ASPIRIN ENTERIC COATED 81 MG TABLET.DR. PO SCH (08:18)
[2020-01-25] MEDS: MIDODRINE 5 MG TABLET PO SCH ×2 (08:18→17:19)
[2020-01-25] MEDS: busPIRone 5 MG TABLET. PO SCH ×2 (08:19→17:17)
[2020-01-25] MEDS: FLUoxetine HCL 20 MG CAPSULE PO SCH (08:20)
[2020-01-25] MEDS: buPROPion XL 150 MG TAB.ER.24H PO SCH (08:20)
[2020-01-25] MEDS: THIAMINE 100 MG TABLET. PO SCH (09:00)
[2020-01-25] MEDS: CHOLECALCIFEROL (VITAMIN D3) 1,000 UNIT TABLET PO SCH (09:00)
[2020-01-25] MEDS: MULTIVITAMIN with MINERAL TABLET. PO SCH (09:00)
[2020-01-25] MEDS: CETIRIZINE HCL 10 MG TABLET PO SCH (09:00)
[2020-01-25 15:54] VITALS: BP 107/65
[2020-01-25] MEDS: DIVALPROEX ER 250 MG TAB.ER.24H. PO SCH (21:02)
[2020-01-25] MEDS: cloZAPine 25 MG TABLET PO SCH (21:02)
[2020-01-25] MEDS: DIVALPROEX ER 500 MG TAB.ER.24H PO SCH (21:02)
--- NOTE | 2020-01-25 21:16 | PDOC ---
Exam Note: Norris Note: Please also refer to the separate dictated note~for this date of service dictated separately.~Patient seen individually. Discussed the patient with Nursing staff reviewed the chart.~Reviewed interim history and current functioning. Reviewed vital signs,~Labs/ Radiology~and current medications noted below. Continue current treatment with the changes noted in the dictated addendum note Assessment: Vital Signs/I&O: Vital Signs Date Time Temp Pulse Resp B/P (MAP) Pulse Ox O2 Delivery O2 Flow Rate FiO2 01/25/20 17:19 78 107/65 01/25/20 15:54 97.8 16 91 01/25/20 10:00 Room Air 01/25/20 06:34 2.0 I & O 01/24/20 01/24/20 01/25/20 15:00 23:00 07:00 Intake Total 600 ml 240 ml 240 ml Balance 600 ml 240 ml 240 ml Labs: Laboratory Tests Test 01/25/20 06:22 01/25/20 12:55 Blood pH 7.38 (7.35-7.45) Blood Gas PCO2 51 mmHg (35-45) H Blood Gas PO2 69 mmHg (80-100) L Blood Gas HCO3 30 mmol/L (22-26) H Arterial Bld O2 Saturation (Calc) 93 % (92-99) FiO2 21 % Ammonia 39 mcmol/L (11-34) H Current Medications: I have reviewed the current psychotropics carefully including drug interactions. Risk benefit ratio favors no change other than as noted in my dictated progress note. Diagnosis: Problems: (1) Anxiety disorder (2) Impulse control disorder (3) Schizoaffective disorder, chronic condition with acute exacerbation (4) Personality disorder in adult LI CABRERA MD Jan 25, 2020 21:16
[2020-01-25] MEDS ORDERED: traZODone 50 MG TABLET. PO PRN (23:45)
[2020-01-26 06:22] VITALS: BP 96/62
[2020-01-26] MEDS: CHOLECALCIFEROL (VITAMIN D3) 1,000 UNIT TABLET PO SCH (07:58)
[2020-01-26] MEDS: ASPIRIN ENTERIC COATED 81 MG TABLET.DR. PO SCH (07:58)
[2020-01-26] MEDS: THIAMINE 100 MG TABLET. PO SCH (07:58)
[2020-01-26] MEDS: busPIRone 5 MG TABLET. PO SCH ×2 (07:58→17:12)
[2020-01-26] MEDS: MULTIVITAMIN with MINERAL TABLET. PO SCH (07:58)
[2020-01-26] MEDS: FLUoxetine HCL 20 MG CAPSULE PO SCH (07:58)
[2020-01-26] MEDS: CETIRIZINE HCL 10 MG TABLET PO SCH (07:59)
[2020-01-26] MEDS: buPROPion XL 150 MG TAB.ER.24H PO SCH (07:59)
[2020-01-26] MEDS: MIDODRINE 5 MG TABLET PO SCH ×2 (08:01→17:12)
[2020-01-26 15:30] VITALS: BP 100/60
[2020-01-26] MEDS: DIVALPROEX ER 250 MG TAB.ER.24H. PO SCH (20:17)
[2020-01-26] MEDS: DIVALPROEX ER 500 MG TAB.ER.24H PO SCH (20:18)
[2020-01-26] MEDS: cloZAPine 25 MG TABLET PO SCH (20:18)
--- NOTE | 2020-01-26 22:36 | PDOC ---
Exam Note: Norris Note: Please also refer to the separate dictated note~for this date of service dictated separately.~Patient seen individually. Discussed the patient with Nursing staff reviewed the chart.~Reviewed interim history and current functioning. Reviewed vital signs,~Labs/ Radiology~and current medications noted below. Continue current treatment with the changes noted in the dictated addendum note Assessment: Vital Signs/I&O: Vital Signs Date Time Temp Pulse Resp B/P (MAP) Pulse Ox O2 Delivery O2 Flow Rate FiO2 01/26/20 17:12 76 100/60 01/26/20 15:30 97.4 18 97 01/25/20 10:00 Room Air 01/25/20 06:34 2.0 I & O 01/25/20 01/25/20 01/26/20 15:00 23:00 07:00 Intake Total 600 ml 480 ml Balance 600 ml 480 ml Current Medications: I have reviewed the current psychotropics carefully including drug interactions. Risk benefit ratio favors no change other than as noted in my dictated progress note. Diagnosis: Problems: (1) Anxiety disorder (2) Impulse control disorder (3) Schizoaffective disorder, chronic condition with acute exacerbation (4) Personality disorder in adult LI CABRERA MD Jan 26, 2020 22:36
--- NOTE | 2020-01-27 01:37 | PN ---
DATE: 01/25/2020 PSYCHIATRIC PROGRESS NOTE This late entry 01/25/2020 covers elements not covered in my initial note. SUBJECTIVE: I met with the patient in the evening at length. Per EVELIO Lara, the patient has been somewhat sedated during the day. Previous night, she complained of chest pain, left shoulder pain. EKG and cardiac enzymes per Dr. Nelson were unremarkable. She slept 7-1/4 hours the previous night. At night, she was difficult to arouse. 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 Chest x-ray shows a mass, but this is the same size as before. Blood gases are somewhat low, will defer to Dr. Nelson. There is a question whether she has been somewhat more sedated and we will stop the Restoril 15 mg schedule she takes at night and use trazodone 50 mg at bedtime p.r.n., may repeat x 1 for insomnia. REVIEW OF SYSTEMS: Other than tiredness, she has some festinating gait. No CV, , pulmonary, eye system symptoms on review. MENTAL STATUS EXAM: Oriented to herself and situation. Speech has some latency, coherent, often responses monosyllabic. Abstraction fair, computation impaired, language function intact. Mood and affect withdrawn. LABORATORY DATA: Reviewed. IMPRESSION: Schizoaffective disorder, bipolar type, mixed with psychotic features; anxiety disorder, unspecified; sedation; low O2 saturations. PLAN: Continue current psychotropics. Discontinue the temazepam. Start trazodone p.r.n. Rest unchanged for now. LI CABRERA MD DR: FRED/minnie JOB#: [id number] / [id number]
[2020-01-27 06:20] VITALS: BP 100/62
[2020-01-27 06:52] LABS: BASO % 1 % (0-3); EOS # 0.1 x10^3/uL (0.0-0.7); EOS % 2 % (0-3); HEMATOCRIT 41.4 % (36.0-47.0); HEMOGLOBIN 13.4 g/dL (12.0-15.5); LYMPH # 1.5 x10^3/uL (1.0-4.8); LYMPH % 18 % (24-48); MEAN CORPUSCULAR HEMOGLOBIN 31 pg (25-35); MEAN CORPUSCULAR HGB CONC 32 g/dL (31-37); MEAN CORPUSCULAR VOLUME 94 fL (79-100); MONO % 12 % (0-9); NEUT # 5.7 x10^3uL (1.8-7.7); NEUT % 69 % (31-73); PLATELET COUNT 262 x10^3/uL (140-400); RED CELL DISTRIBUTION WIDTH 16.3 % (11.5-14.5); WHITE BLOOD COUNT 8.4 x10^3/uL (4.0-11.0)
[2020-01-27] MEDS: FLUoxetine HCL 20 MG CAPSULE PO SCH (08:07)
[2020-01-27] MEDS: MULTIVITAMIN with MINERAL TABLET. PO SCH (08:07)
[2020-01-27] MEDS: THIAMINE 100 MG TABLET. PO SCH (08:07)
[2020-01-27] MEDS: busPIRone 5 MG TABLET. PO SCH ×2 (08:07→17:13)
[2020-01-27] MEDS: MIDODRINE 5 MG TABLET PO SCH ×2 (08:07→17:13)
[2020-01-27] MEDS: ASPIRIN ENTERIC COATED 81 MG TABLET.DR. PO SCH (08:07)
[2020-01-27] MEDS: CHOLECALCIFEROL (VITAMIN D3) 1,000 UNIT TABLET PO SCH (08:07)
[2020-01-27] MEDS: CETIRIZINE HCL 10 MG TABLET PO SCH (08:08)
[2020-01-27] MEDS: buPROPion XL 150 MG TAB.ER.24H PO SCH (08:08)
[2020-01-27 12:55] LABS: % ATYL 2 % (0-0); % BANDS 4 % (0-9); % BASOS 1 % (0-3); % EOS 2 % (0-5); % LYMPHS 22 % (24-48); % MONOS 11 % (0-10); % SEGS 58 % (35-66); PLT ESTIMATE ADEQUATE (ADEQUATE)
[2020-01-27 12:57] LABS: OVALOCYTES OCC
[2020-01-27 12:58] LABS: SCHISTOCYTES OCC
[2020-01-27 16:12] VITALS: BP 110/69
--- NOTE | 2020-01-27 16:27 | PN ---
DATE: 01/24/2020 PSYCHIATRIC PROGRESS NOTE This late entry 01/24/2020 covers elements not covered in my initial note. SUBJECTIVE: I met with the patient evening of 01/24/2020. Per Siddharth FRASER, patient slept 6-1/2 hours previous night. She has not been psychotic and not talking about drugs and other spirits. REVIEW OF SYSTEMS: Positive for some tiredness. No CV, , pulmonary, eye system symptoms on review. She does ambulate independently. MENTAL STATUS EXAM: Oriented to herself and situation. Speech has some latency, often responses monosyllabic, coherent. Abstraction fair, computation impaired, language function intact. Attention span somewhat short. Mood and affect withdrawn. LABORATORY DATA: Reviewed. IMPRESSION: Unchanged from initial note. PLAN: No change from initial note. MAN Adonis CABRERA MD DR: FRED/minnie JOB#: [id number] / [id number]
[2020-01-27] MEDS: DIVALPROEX ER 500 MG TAB.ER.24H PO SCH (21:00)
[2020-01-27] MEDS: DIVALPROEX ER 250 MG TAB.ER.24H. PO SCH (21:00)
[2020-01-27] MEDS: cloZAPine 25 MG TABLET PO SCH (21:00)
--- NOTE | 2020-01-27 21:43 | PDOC ---
Exam Note: Norris Note: Please also refer to the separate dictated note~for this date of service dictated separately.~Patient seen individually. Discussed the patient with Nursing staff reviewed the chart.~Reviewed interim history and current functioning. Reviewed vital signs,~Labs/ Radiology~and current medications noted below. Continue current treatment with the changes noted in the dictated addendum note Assessment: Vital Signs/I&O: Vital Signs Date Time Temp Pulse Resp B/P (MAP) Pulse Ox O2 Delivery O2 Flow Rate FiO2 01/27/20 17:13 78 110/69 01/27/20 16:12 97.4 16 91 01/25/20 10:00 Room Air 01/25/20 06:34 2.0 I & O 01/26/20 01/26/20 01/27/20 15:00 23:00 07:00 Intake Total 820 ml 450 ml 240 ml Balance 820 ml 450 ml 240 ml Labs: Laboratory Tests Test 01/27/20 06:39 White Blood Count 8.4 x10^3/uL (4.0-11.0) Red Blood Count 4.40 x10^6/uL (3.50-5.40) Hemoglobin 13.4 g/dL (12.0-15.5) Hematocrit 41.4 % (36.0-47.0) Mean Corpuscular Volume 94 fL (79-100) Mean Corpuscular Hemoglobin 31 pg (25-35) Mean Corpuscular Hemoglobin Concent 32 g/dL (31-37) Red Cell Distribution Width 16.3 % (11.5-14.5) H Platelet Count 262 x10^3/uL (140-400) Neutrophils (%) (Auto) 69 % (31-73) Lymphocytes (%) (Auto) 18 % (24-48) L Monocytes (%) (Auto) 12 % (0-9) H Eosinophils (%) (Auto) 2 % (0-3) Basophils (%) (Auto) 1 % (0-3) Neutrophils # (Auto) 5.7 x10^3uL (1.8-7.7) Lymphocytes # (Auto) 1.5 x10^3/uL (1.0-4.8) Monocytes # (Auto) 1.0 x10^3/uL (0.0-1.1) Eosinophils # (Auto) 0.1 x10^3/uL (0.0-0.7) Basophils # (Auto) 0.0 x10^3/uL (0.0-0.2) Segmented Neutrophils % 58 % (35-66) Band Neutrophils % 4 % (0-9) Lymphocytes % 22 % (24-48) L Atypical Lymphocytes % (Manual) 2 % (0-0) H Monocytes % 11 % (0-10) H Eosinophils % 2 % (0-5) Basophils % 1 % (0-3) Platelet Estimate Adequate (ADEQUATE) Ovalocytes Occ Schistocytes Occ Current Medications: Meds: Current Medications Medications (Trade) Dose Ordered Sig/Liv Route PRN Reason Start Time Stop Time Status Last Admin Dose Admin Bupropion HCl (Wellbutrin Xl) 300 mg DAILY PO 01/27/20 09:00 01/27/20 08:08 I have reviewed the current psychotropics carefully including drug interactions. Risk benefit ratio favors no change other than as noted in my dictated progress note. Diagnosis: Problems: (1) Anxiety disorder (2) Impulse control disorder (3) Schizoaffective disorder, chronic condition with acute exacerbation (4) Personality disorder in adult LI CABRERA MD Jan 27, 2020 21:43
--- NOTE | 2020-01-27 22:25 | PN ---
DATE: 01/26/2020 PSYCHIATRIC PROGRESS NOTE This late entry 01/26/2020, covers elements not covered in my initial note. SUBJECTIVE: I met with the patient in the evening of 01/26/2020. The patient slept 5 and half hours previous night per EVELOI Kumar. She has been more animated, verbally interactive with staff, which is an improvement. REVIEW OF SYSTEMS: She has a festinating gait, but ambulates on her own. No CV, , pulmonary, eye system symptoms on review. MENTAL STATUS EXAM: Oriented to herself and situation. Speech has some latency, coherent, often responses monosyllabic. Abstraction fair, computation impaired, language function intact, attention span short. Mood and affect still withdrawn, but improved. LABORATORY DATA: Reviewed. IMPRESSION: Unchanged from initial note. PLAN: Increase Wellbutrin-XL from 150 mg a day to 300 mg a day. Rest unchanged for now including Prozac, Invega, trazodone and Depakote, the latter level therapeutic at 86. MAN Adonis CABRERA MD DR: FRED/minnie JOB#: [id number] / [id number]
[2020-01-28 06:23] VITALS: BP 96/63
[2020-01-28] MEDS: MIDODRINE 5 MG TABLET PO SCH ×2 (06:48→17:25)
[2020-01-28] MEDS: FLUoxetine HCL 20 MG CAPSULE PO SCH (06:49)
[2020-01-28] MEDS: CETIRIZINE HCL 10 MG TABLET PO SCH (06:49)
[2020-01-28] MEDS: ASPIRIN ENTERIC COATED 81 MG TABLET.DR. PO SCH (06:49)
[2020-01-28] MEDS: CHOLECALCIFEROL (VITAMIN D3) 1,000 UNIT TABLET PO SCH (06:49)
[2020-01-28] MEDS: buPROPion XL 150 MG TAB.ER.24H PO SCH (06:49)
[2020-01-28] MEDS: busPIRone 5 MG TABLET. PO SCH ×2 (06:49→17:25)
[2020-01-28] MEDS: MULTIVITAMIN with MINERAL TABLET. PO SCH (06:50)
[2020-01-28] MEDS: THIAMINE 100 MG TABLET. PO SCH (06:50)
[2020-01-28 16:04] VITALS: BP 112/75
[2020-01-28 20:08] LABS: BASO % 0 % (0-3); EOS # 0.1 x10^3/uL (0.0-0.7); EOS % 2 % (0-3); HEMATOCRIT 38.6 % (36.0-47.0); HEMOGLOBIN 12.7 g/dL (12.0-15.5); LYMPH # 1.3 x10^3/uL (1.0-4.8); LYMPH % 17 % (24-48); MEAN CORPUSCULAR HEMOGLOBIN 31 pg (25-35); MEAN CORPUSCULAR HGB CONC 33 g/dL (31-37); MEAN CORPUSCULAR VOLUME 94 fL (79-100); MONO # 0.9 x10^3/uL (0.0-1.1); MONO % 11 % (0-9); NEUT # 5.5 x10^3uL (1.8-7.7); NEUT % 70 % (31-73); PLATELET COUNT 254 x10^3/uL (140-400); RED BLOOD COUNT 4.13 x10^6/uL (3.50-5.40); RED CELL DISTRIBUTION WIDTH 16.4 % (11.5-14.5); WHITE BLOOD COUNT 7.9 x10^3/uL (4.0-11.0)
[2020-01-28 20:17] LABS: CALCIUM 9.6 mg/dL (8.5-10.1); CREATININE 0.5 mg/dL (0.6-1.0); GFR 122.3; POTASSIUM 3.6 mmol/L (3.5-5.1)
[2020-01-28 20:24] LABS: ALBUMIN 3.1 g/dL (3.4-5.0); ALBUMIN/GLOBULIN RATIO 0.9 (1.0-1.7); TOTAL BILIRUBIN 0.2 mg/dL (0.2-1.0); TOTAL PROTEIN 6.4 g/dL (6.4-8.2)
[2020-01-28 20:59] LABS: VAL ACID 30 mcg/mL (50-100)
[2020-01-28 21:03] LABS: BGAS PH 7.39 (7.35-7.45)
[2020-01-28] MEDS: cloZAPine 25 MG TABLET PO SCH (21:33)
[2020-01-28] MEDS: DIVALPROEX ER 250 MG TAB.ER.24H. PO SCH (21:34)
[2020-01-28] MEDS: DIVALPROEX ER 500 MG TAB.ER.24H PO SCH (21:34)
--- NOTE | 2020-01-28 21:40 | PDOC ---
Exam Note: Norris Note: Please also refer to the separate dictated note~for this date of service dictated separately.~Patient seen individually. Discussed the patient with Nursing staff reviewed the chart.~Reviewed interim history and current functioning. Reviewed vital signs,~Labs/ Radiology~and current medications noted below. Continue current treatment with the changes noted in the dictated addendum note Assessment: Vital Signs/I&O: Vital Signs Date Time Temp Pulse Resp B/P (MAP) Pulse Ox O2 Delivery O2 Flow Rate FiO2 01/28/20 17:25 76 112/75 01/28/20 16:04 97.8 16 92 01/25/20 10:00 Room Air 01/25/20 06:34 2.0 I & O 01/27/20 01/27/20 01/28/20 15:00 23:00 07:00 Intake Total 600 ml 340 ml Balance 600 ml 340 ml Labs: Laboratory Tests Test 01/28/20 19:55 01/28/20 20:45 White Blood Count 7.9 x10^3/uL (4.0-11.0) Red Blood Count 4.13 x10^6/uL (3.50-5.40) Hemoglobin 12.7 g/dL (12.0-15.5) Hematocrit 38.6 % (36.0-47.0) Mean Corpuscular Volume 94 fL (79-100) Mean Corpuscular Hemoglobin 31 pg (25-35) Mean Corpuscular Hemoglobin Concent 33 g/dL (31-37) Red Cell Distribution Width 16.4 % (11.5-14.5) H Platelet Count 254 x10^3/uL (140-400) Neutrophils (%) (Auto) 70 % (31-73) Lymphocytes (%) (Auto) 17 % (24-48) L Monocytes (%) (Auto) 11 % (0-9) H Eosinophils (%) (Auto) 2 % (0-3) Basophils (%) (Auto) 0 % (0-3) Neutrophils # (Auto) 5.5 x10^3uL (1.8-7.7) Lymphocytes # (Auto) 1.3 x10^3/uL (1.0-4.8) Monocytes # (Auto) 0.9 x10^3/uL (0.0-1.1) Eosinophils # (Auto) 0.1 x10^3/uL (0.0-0.7) Basophils # (Auto) 0.0 x10^3/uL (0.0-0.2) Sodium Level 144 mmol/L (136-145) Potassium Level 3.6 mmol/L (3.5-5.1) Chloride Level 106 mmol/L (98-107) Carbon Dioxide Level 30 mmol/L (21-32) Anion Gap 8 (6-14) Blood Urea Nitrogen 13 mg/dL (7-20) Creatinine 0.5 mg/dL (0.6-1.0) L Estimated GFR (Cockcroft-Gault) 122.3 BUN/Creatinine Ratio 26 (6-20) H Glucose Level 170 mg/dL (70-99) H Calcium Level 9.6 mg/dL (8.5-10.1) Total Bilirubin 0.2 mg/dL (0.2-1.0) Aspartate Amino Transferase (AST) 15 U/L (15-37) Alanine Aminotransferase (ALT) 17 U/L (14-59) Alkaline Phosphatase 59 U/L (46-116) Ammonia 37 mcmol/L (11-34) H Creatine Kinase 77 U/L (26-192) Troponin I Quantitative 0.030 ng/mL (0-0.055) RA-Mnp-J-Type Natriuretic Peptide 123 pg/mL (0-124) Total Protein 6.4 g/dL (6.4-8.2) Albumin 3.1 g/dL (3.4-5.0) L Albumin/Globulin Ratio 0.9 (1.0-1.7) L Valproic Acid Level 30 mcg/mL (50-100) L Valproic Acid Last Dose Date 01/28/20 Valproic Acid Last Dose Time 0900 Blood pH 7.39 (7.35-7.45) Blood Gas PCO2 49 mmHg (35-45) H Blood Gas PO2 82 mmHg (80-100) Blood Gas HCO3 30 mmol/L (22-26) H Arterial Bld O2 Saturation (Calc) 96 % (92-99) FiO2 28 % Current Medications: I have reviewed the current psychotropics carefully including drug interactions. Risk benefit ratio favors no change other than as noted in my dictated progress note. Diagnosis: Problems: (1) Anxiety disorder (2) Impulse control disorder (3) Schizoaffective disorder, chronic condition with acute exacerbation (4) Personality disorder in adult LI CABRERA MD Jan 28, 2020 21:40
--- NOTE | 2020-01-28 22:57 | EKG ---
[address] [address] Test Date: 2020-01-28 Test Time: 20:44:32 Pat Name: VIVIEN MNA Department: Room: [address] [place] [address] Gender: F Hide Dyer: : 1950 Requested By: JONATAN VALVERDE Order Number: [id number] Reading MD: Rick Egan Measurements Intervals Paradox Rate: 81 P: 69 AK: 144 QRS: -49 QRSD: 94 T: 96 QT: 348 QTc: 409 Interpretive Statements SINUS RHYTHM ABNORMAL LEFT AXIS DEVIATION LEFT ANTERIOR FASCICULAR BLOCK T ABNORMALITY IN ANTEROLATERAL LEADS ABNORMAL ECG Electronically Signed On 02-17-2020 9:10:36 CDT by Rick Egan
--- NOTE | 2020-01-28 23:07 | RAD ---
AP chest. HISTORY: Short of breath AP view was taken of the chest. Heart is normal in size. There is no effusion. There is a right lung mass without change from the recent study. There is mild atelectasis or infiltrate in the right lower lobe similar to the recent study. There is not evidence of heart failure. There is scarring along the left heart border. IMPRESSION: 1. Right lung mass without change from the recent exam. 2. Mild atelectasis or infiltrate right lower lobe. Electronically signed by: Ronnie Odom MD (01/28/2020 11:05 PM) [id number]
--- NOTE | 2020-01-28 23:25 | PN ---
DATE: 01/27/2020 PSYCHIATRIC PROGRESS NOTE This late entry 01/27/2020 covers elements not covered in my initial note. SUBJECTIVE: I met with the patient in the evening. Per Maddie RN, the patient slept 9 hours previous night. She has been more interactive with staff, more appropriate during the day. REVIEW OF SYSTEMS: No CV, , pulmonary, eye, ENT system symptoms on review. MENTAL STATUS EXAM: Oriented to herself and situation. Speech has some latency, coherent. Abstraction fair, computation impaired, language function intact, attention span short. Mood and affect still withdrawn, but improved. LABORATORY DATA: Reviewed. IMPRESSION: Schizoaffective disorder, bipolar type, with psychotic features; anxiety disorder, unspecified. Rest unchanged. PLAN: Wellbutrin XL was increased to 300 mg a day. Maintain this and the rest of the psychotropics per initial note. MAN Adonis CABRERA MD DR: FRED/minnie JOB#: [id number] / [id number]
[2020-01-29 06:23] VITALS: BP 100/67
[2020-01-29] MEDS: MIDODRINE 5 MG TABLET PO SCH ×2 (08:27→17:29)
[2020-01-29] MEDS: FLUoxetine HCL 20 MG CAPSULE PO SCH (08:27)
[2020-01-29] MEDS: busPIRone 5 MG TABLET. PO SCH ×2 (08:27→17:28)
[2020-01-29] MEDS: THIAMINE 100 MG TABLET. PO SCH (08:28)
[2020-01-29] MEDS: MULTIVITAMIN with MINERAL TABLET. PO SCH (08:28)
[2020-01-29] MEDS: ASPIRIN ENTERIC COATED 81 MG TABLET.DR. PO SCH (08:28)
[2020-01-29] MEDS: buPROPion XL 150 MG TAB.ER.24H PO SCH (08:28)
[2020-01-29] MEDS: CHOLECALCIFEROL (VITAMIN D3) 1,000 UNIT TABLET PO SCH (08:28)
[2020-01-29] MEDS: CETIRIZINE HCL 10 MG TABLET PO SCH (08:28)
--- NOTE | 2020-01-29 13:16 | PN ---
DATE: 01/28/2020 PSYCHIATRIC PROGRESS NOTE This late entry January 27 covers elements not covered in my initial note. SUBJECTIVE: I met with the patient in the evening. Per EVELIO Rojas, the patient slept 8-1/2 hours previous night. She remains anxious, restless, checking the doors, wanting to go home. She is paranoid as I met with her at length in the evening in her room. Quite suspicious, believes nursing staff are plotting against her, doing things to poison her. REVIEW OF SYSTEMS: Positive for tiredness. No CV, , pulmonary, eye system symptoms on review. Vague somatic symptoms are evident. MENTAL STATUS EXAM: Oriented to herself and situation. Speech is coherent, has some latency, often responses monosyllabic. Abstraction fair. Computation impaired. Language function intact. Mood and affect labile, tearful, crying, suspicious. No active suicidal ideation. LABORATORY DATA: Reviewed. IMPRESSION: Schizoaffective disorder, bipolar type, mixed with psychotic features; anxiety disorder, unspecified. Rest unchanged. PLAN: Continue psychotropics from initial note for now. Valproic acid level is therapeutic. Given her ongoing psychotic symptoms and the fact that she was unable to tolerate other antipsychotics, we may have to consider changing to Clozaril. We will see how she does over the next 24 hours and decide. LI CABRERA MD DR: FRED/minnie JOB#: [id number] / [id number]
[2020-01-29 15:38] VITALS: BP 107/75
[2020-01-29] MEDS: cloZAPine 25 MG TABLET PO SCH (21:38)
[2020-01-29] MEDS: DIVALPROEX ER 250 MG TAB.ER.24H. PO SCH (21:38)
[2020-01-29] MEDS: DIVALPROEX ER 500 MG TAB.ER.24H PO SCH (21:38)
--- NOTE | 2020-01-29 21:51 | PDOC ---
Exam Note: Norris Note: Please also refer to the separate dictated note~for this date of service dictated separately.~Patient seen individually. Discussed the patient with Nursing staff reviewed the chart.~Reviewed interim history and current functioning. Reviewed vital signs,~Labs/ Radiology~and current medications noted below. Continue current treatment with the changes noted in the dictated addendum note Assessment: Vital Signs/I&O: Vital Signs Date Time Temp Pulse Resp B/P (MAP) Pulse Ox O2 Delivery O2 Flow Rate FiO2 01/29/20 17:29 74 107/75 01/29/20 15:38 97.4 16 94 01/25/20 10:00 Room Air 01/25/20 06:34 2.0 I & O 01/28/20 01/28/20 01/29/20 15:00 23:00 07:00 Intake Total 480 ml 340 ml Balance 480 ml 340 ml Current Medications: Meds: Current Medications Medications (Trade) Dose Ordered Sig/Liv Route PRN Reason Start Time Stop Time Status Last Admin Dose Admin Clozapine (Clozaril) 50 mg HS PO 01/29/20 21:00 01/29/20 21:38 I have reviewed the current psychotropics carefully including drug interactions. Risk benefit ratio favors no change other than as noted in my dictated progress note. Diagnosis: Problems: (1) Anxiety disorder (2) Impulse control disorder (3) Schizoaffective disorder, chronic condition with acute exacerbation (4) Personality disorder in adult (5) Bipolar disorder, curr episode mixed, severe, with psychotic features LI CABRERA MD Jan 29, 2020 21:51
[2020-01-30 08:00] VITALS: BP 101/60
[2020-01-30] MEDS: CHOLECALCIFEROL (VITAMIN D3) 1,000 UNIT TABLET PO SCH (08:07)
[2020-01-30] MEDS: buPROPion XL 150 MG TAB.ER.24H PO SCH (08:07)
[2020-01-30] MEDS: MIDODRINE 5 MG TABLET PO SCH ×2 (08:10→17:00)
[2020-01-30] MEDS: ASPIRIN ENTERIC COATED 81 MG TABLET.DR. PO SCH (08:10)
[2020-01-30] MEDS: FLUoxetine HCL 20 MG CAPSULE PO SCH (08:11)
[2020-01-30] MEDS: CETIRIZINE HCL 10 MG TABLET PO SCH (08:11)
[2020-01-30] MEDS: THIAMINE 100 MG TABLET. PO SCH (08:11)
[2020-01-30] MEDS: MULTIVITAMIN with MINERAL TABLET. PO SCH (08:11)
[2020-01-30] MEDS: busPIRone 5 MG TABLET. PO SCH ×2 (08:11→17:00)
[2020-01-30 11:20] LABS: BACTERIA,URINE FEW /HPF (0-FEW); BILIRUBIN,URINE NEG (NEG); CLARITY,URINE HAZY; COLOR,URINE YELLOW; GLUCOSE,URINE NEG (NEG); NITRITE,URINE NEG (NEG); UROBILINOGEN,URINE 0.2 mg/dL (0.2 mg/dL)
[2020-01-30 11:21] LABS: SQUAMOUS EPITHELIAL CELL,UR MOD /LPF
[2020-01-30 16:25] VITALS: BP 107/75
[2020-01-30] MEDS: DIVALPROEX ER 250 MG TAB.ER.24H. PO SCH (20:26)
[2020-01-30] MEDS: DIVALPROEX ER 500 MG TAB.ER.24H PO SCH (20:26)
[2020-01-30] MEDS: cloZAPine 25 MG TABLET PO SCH (20:27)
--- NOTE | 2020-01-30 21:43 | PDOC ---
Exam Note: Norris Note: Please also refer to the separate dictated note~for this date of service dictated separately.~Patient seen individually. Discussed the patient with Nursing staff reviewed the chart.~Reviewed interim history and current functioning. Reviewed vital signs,~Labs/ Radiology~and current medications noted below. Continue current treatment with the changes noted in the dictated addendum note Assessment: Vital Signs/I&O: Vital Signs Date Time Temp Pulse Resp B/P (MAP) Pulse Ox O2 Delivery O2 Flow Rate FiO2 01/30/20 17:00 85 107/75 01/30/20 16:25 98.6 19 93 01/25/20 10:00 Room Air 01/25/20 06:34 2.0 I & O 01/29/20 01/29/20 01/30/20 15:00 23:00 07:00 Intake Total 960 ml 340 ml Balance 960 ml 340 ml Labs: Laboratory Tests Test 01/30/20 10:37 Urine Collection Type Unknown Urine Color Yellow Urine Clarity Hazy Urine pH 7.5 Urine Specific [place] 1.015 Urine Protein Neg (NEG-TRACE) Urine Glucose (UA) Neg mg/dL (NEG) Urine Ketones (Stick) Neg mg/dL (NEG) Urine Blood Trace (NEG) Urine Nitrite Neg (NEG) Urine Bilirubin Neg (NEG) Urine Urobilinogen Dipstick 0.2 mg/dL (0.2 mg/dL) Urine Leukocyte Esterase Neg (NEG) Urine RBC 3-5 /HPF (0-2) Urine WBC 1-4 /HPF (0-4) Urine Squamous Epithelial Cells Mod /LPF Urine Bacteria Few /HPF (0-FEW) Current Medications: I have reviewed the current psychotropics carefully including drug interactions. Risk benefit ratio favors no change other than as noted in my dictated progress note. Diagnosis: Problems: (1) Bipolar disorder, curr episode mixed, severe, with psychotic features (2) Anxiety disorder (3) Impulse control disorder (4) Schizoaffective disorder, chronic condition with acute exacerbation (5) Personality disorder in adult LI CABRERA MD Jan 30, 2020 21:43
[2020-01-31 05:25] VITALS: BP 90/58
[2020-01-31] MEDS: MIDODRINE 5 MG TABLET PO SCH ×2 (07:55→17:24)
[2020-01-31] MEDS: buPROPion XL 150 MG TAB.ER.24H PO SCH (07:55)
[2020-01-31] MEDS: MULTIVITAMIN with MINERAL TABLET. PO SCH (07:56)
[2020-01-31] MEDS: CHOLECALCIFEROL (VITAMIN D3) 1,000 UNIT TABLET PO SCH (07:56)
[2020-01-31] MEDS: THIAMINE 100 MG TABLET. PO SCH (07:56)
[2020-01-31] MEDS: busPIRone 5 MG TABLET. PO SCH ×2 (07:56→17:24)
[2020-01-31] MEDS: ASPIRIN ENTERIC COATED 81 MG TABLET.DR. PO SCH (07:56)
[2020-01-31] MEDS: FLUoxetine HCL 20 MG CAPSULE PO SCH (07:56)
[2020-01-31] MEDS: CETIRIZINE HCL 10 MG TABLET PO SCH (07:57)
[2020-01-31 15:45] VITALS: BP 111/72
[2020-01-31] MEDS: DIVALPROEX ER 500 MG TAB.ER.24H PO SCH (20:42)
[2020-01-31] MEDS: cloZAPine 25 MG TABLET PO SCH (20:43)
[2020-01-31] MEDS: DIVALPROEX ER 250 MG TAB.ER.24H. PO SCH (20:43)
--- NOTE | 2020-01-31 20:57 | PN ---
DATE: 01/29/2020 PSYCHIATRIC PROGRESS NOTE This late entry 01/28, covers elements not covered in my initial note. SUBJECTIVE: I met with the patient evening of 01/28. Per EVELIO Andrew, the patient slept 7-1/4 hours previous night. She has been somewhat withdrawn. Previous night, she is complaining of chest pain. Workup was negative per Dr. Nelson and she may have GERD. REVIEW OF SYSTEMS: No CV, , pulmonary, eye system symptoms on review. MENTAL STATUS EXAM: Oriented to herself and situation. Speech moderate latency, often responses monosyllabic, abstraction fair, computation impaired, language function intact, attention span short. Mood and affect somewhat withdrawn. LABORATORY DATA: Reviewed. IMPRESSION: Schizoaffective disorder, bipolar type, mixed with psychotic features; mild cognitive impairment; anxiety disorder, unspecified. She does have some tremors. PLAN: WBC 7.9, neutrophils 70%. Increase Clozaril from 25 mg at bedtime to 50 mg at bedtime. Continue Wellbutrin, Depakote, Prozac, along with Invega IM and BuSpar. We will adjust further as clinically indicated. MAN Adonis CABRERA MD DR: FRED/minnie JOB#: [id number] / [id number]
--- NOTE | 2020-01-31 21:29 | PDOC ---
Exam Note: Norris Note: Please also refer to the separate dictated note~for this date of service dictated separately.~Patient seen individually. Discussed the patient with Nursing staff reviewed the chart.~Reviewed interim history and current functioning. Reviewed vital signs,~Labs/ Radiology~and current medications noted below. Continue current treatment with the changes noted in the dictated addendum note Assessment: Vital Signs/I&O: Vital Signs Date Time Temp Pulse Resp B/P (MAP) Pulse Ox O2 Delivery O2 Flow Rate FiO2 01/31/20 17:24 92 111/72 01/31/20 15:45 97.8 16 90 01/31/20 05:25 Room Air I & O 01/30/20 01/30/20 01/31/20 15:00 23:00 07:00 Intake Total 960 ml 600 ml Balance 960 ml 600 ml Current Medications: I have reviewed the current psychotropics carefully including drug interactions. Risk benefit ratio favors no change other than as noted in my dictated progress note. Diagnosis: Problems: (1) Bipolar disorder, curr episode mixed, severe, with psychotic features (2) Anxiety disorder (3) Impulse control disorder (4) Schizoaffective disorder, chronic condition with acute exacerbation (5) Personality disorder in adult LI CABRERA MD Jan 31, 2020 21:29
[2020-02-01 05:10] VITALS: BP 86/62
[2020-02-01] MEDS: MIDODRINE 5 MG TABLET PO SCH ×2 (08:00→17:16)
--- NOTE | 2020-02-01 08:47 | PN ---
DATE: 01/30/2020 PSYCHIATRIC PROGRESS NOTE This late entry 01/30/2020 covers elements not covered in my initial note. SUBJECTIVE: I met with the patient evening of 01/30/2020 and staffed at a treatment team meeting with the entire team earlier in the day. The staff from [facility] attended the treatment team meeting, which reviewed the patient's progress, current psychotropics, prognosis, discharge plans at some length. Appetite 100%, sleeping average 7-1/2 hours. She is still paranoid. At one point felt the nursing staff were poisoning her, was trying to interact later with staff appropriately, trying to play a game and gradually has improved since then. REVIEW OF SYSTEMS: Positive for some tiredness. No CV, , pulmonary, eye system symptoms on review. MENTAL STATUS EXAM: Oriented to herself and situation. Speech moderate latency, often responses monosyllabic. Abstraction fair, computation impaired, language function intact. Mood and affect withdrawn. LABORATORY DATA: Reviewed. IMPRESSION: Unchanged from initial note. Schizoaffective disorder, bipolar type, mixed with psychotic features, mild cognitive impairment. Rest unchanged. PLAN: Continue current psychotropics mentioned in my initial note. Clozaril is being adjusted gradually and tolerated. Absolute neutrophil count 553. MAN Adonis CABRERA MD DR: FRED/minnie JOB#: [id number] / [id number]
[2020-02-01] MEDS: buPROPion XL 150 MG TAB.ER.24H PO SCH (09:00)
[2020-02-01] MEDS: busPIRone 5 MG TABLET. PO SCH ×2 (09:00→17:16)
[2020-02-01] MEDS: CHOLECALCIFEROL (VITAMIN D3) 1,000 UNIT TABLET PO SCH (09:00)
[2020-02-01] MEDS: FLUoxetine HCL 20 MG CAPSULE PO SCH (09:00)
[2020-02-01] MEDS: CETIRIZINE HCL 10 MG TABLET PO SCH (09:00)
[2020-02-01] MEDS: ASPIRIN ENTERIC COATED 81 MG TABLET.DR. PO SCH (09:00)
[2020-02-01] MEDS: THIAMINE 100 MG TABLET. PO SCH (09:00)
[2020-02-01] MEDS: MULTIVITAMIN with MINERAL TABLET. PO SCH (09:00)
[2020-02-01 10:10] VITALS: BP 106/70
--- NOTE | 2020-02-01 11:30 | PN ---
DATE: 01/31/2020 PSYCHIATRIC PROGRESS NOTE This late entry of 01/31/2020 covers elements not covered in my initial note. SUBJECTIVE: I met with the patient in the evening of 01/31/2020. Per EVELIO Haley, the patient slept 8 hours previous night. She has been flat, withdrawn, but does come out of her room, stays in the day room, which is an improvement, less paranoid. UA is negative, repeat. REVIEW OF SYSTEMS: Positive for some tiredness. No CV, , pulmonary, eye system symptoms on review. MENTAL STATUS EXAM: Reasonably oriented. Speech coherent, has some latency, often responses monosyllabic. Abstraction fair, computation impaired, language function intact. Mood and affect withdrawn. LABORATORY DATA: Reviewed. IMPRESSION: Unchanged from initial note. PLAN: No change from initial note. MAN Adonis CABRERA MD DR: FRED/minnie JOB#: [id number] / [id number]
[2020-02-01 16:28] VITALS: BP 97/65
[2020-02-01] MEDS: DIVALPROEX ER 250 MG TAB.ER.24H. PO SCH (19:45)
[2020-02-01] MEDS: cloZAPine 25 MG TABLET PO SCH (19:46)
[2020-02-01] MEDS: DIVALPROEX ER 500 MG TAB.ER.24H PO SCH (19:46)
--- NOTE | 2020-02-02 01:04 | PN ---
DATE: 02/01/2020 SUBJECTIVE: The patient was seen today, met with the staff, chart reviewed and also covering for Dr. Maddox. The patient's behavior remains the same, still withdrawn, tend to isolate herself, less paranoid. Staff reports no major behavior problems. OBSERVATION: VITAL SIGNS: Temperature 97.4, blood pressure 86/62, pulse 90, respirations 18, and O2 sat 93%. GENERAL: Slept about 7 hours last night. MEDICATIONS: The patient's current medications include Clozaril 50 mg at night, Wellbutrin 300 mg daily, trazodone 50 mg at night p.r.n., Invega Sustenna 234 mg IM monthly, BuSpar 5 mg b.i.d., fluoxetine 20 mg daily, Depakote ER 250 mg at night and also 1000 mg at night. LABORATORY DATA: The patient's lab reviewed. The patient's ammonia level on admission was 39. The patient's BUN and creatinine ratio was 26, glucose level 170. The patient's Depakote level was 30. The patient is not having any side effects. ASSESSMENT: 1. Schizoaffective disorder, bipolar type, chronic. 2. Impulse control disorder, unspecified. PLAN: Continue with the current treatment plan. LENGTH OF STAY: 5-7 days. VETO DILLON MD DR: PAT/minnie JOB#: [id number] / [id number]
[2020-02-02 05:25] VITALS: BP 91/56
[2020-02-02] MEDS: MULTIVITAMIN with MINERAL TABLET. PO SCH (08:41)
[2020-02-02] MEDS: CHOLECALCIFEROL (VITAMIN D3) 1,000 UNIT TABLET PO SCH (08:41)
[2020-02-02] MEDS: MIDODRINE 5 MG TABLET PO SCH ×2 (08:41→17:15)
[2020-02-02] MEDS: busPIRone 5 MG TABLET. PO SCH ×2 (08:41→17:15)
[2020-02-02] MEDS: buPROPion XL 150 MG TAB.ER.24H PO SCH (08:41)
[2020-02-02] MEDS: FLUoxetine HCL 20 MG CAPSULE PO SCH (08:41)
[2020-02-02] MEDS: ASPIRIN ENTERIC COATED 81 MG TABLET.DR. PO SCH (08:41)
[2020-02-02] MEDS: THIAMINE 100 MG TABLET. PO SCH (08:41)
[2020-02-02] MEDS: CETIRIZINE HCL 10 MG TABLET PO SCH (08:42)
[2020-02-02 15:37] VITALS: BP 112/77
[2020-02-02] MEDS: cloZAPine 25 MG TABLET PO SCH (19:44)
[2020-02-02] MEDS: DIVALPROEX ER 500 MG TAB.ER.24H PO SCH (19:45)
[2020-02-02] MEDS: DIVALPROEX ER 250 MG TAB.ER.24H. PO SCH (19:45)
--- NOTE | 2020-02-02 22:57 | PN ---
DATE: 02/02/2020 SUBJECTIVE: The patient was seen today, met with the staff, chart reviewed and also covering for Dr. Maddox. Staff reports no major problems today. She is calm, compliant with the medications. OBSERVATION: VITAL SIGNS: Temperature 98.2, blood pressure 91/56, pulse 70, respirations 20, O2 sat 93%. GENERAL: Slept about 7 hours last night. Appetite fair. The patient denies of any side effects, but showing some dystonia and stiffness of the muscles, but the patient is not having any other complaints including tremors or difficulty swallowing. MEDICATIONS: The patient's medications reviewed. The patient currently on Clozaril 50 mg at night, Wellbutrin 300 mg daily, trazodone 50 mg at night p.r.n., Invega Sustenna 234 mg IM monthly, BuSpar 5 mg b.i.d., fluoxetine 20 mg daily, Depakote ER 250 mg at night and also 1000 mg at night. LABORATORY DATA: The patient's lab reviewed. ASSESSMENT: 1. Schizoaffective disorder, bipolar type, chronic. 2. Impulse control disorder, unspecified. PLAN: To continue with the treatment. Consider adding Cogentin if she continues to have any problems with increased dystonia. LENGTH OF STAY: 5-7 days. VETO DILLON MD DR: PAT/minnie JOB#: [id number] / [id number]
[2020-02-03 05:59] VITALS: BP 114/74
[2020-02-03 07:41] LABS: BASO % 0 % (0-3); EOS # 0.2 x10^3/uL (0.0-0.7); EOS % 2 % (0-3); HEMATOCRIT 42.4 % (36.0-47.0); HEMOGLOBIN 13.8 g/dL (12.0-15.5); LYMPH # 1.8 x10^3/uL (1.0-4.8); LYMPH % 25 % (24-48); MEAN CORPUSCULAR HEMOGLOBIN 31 pg (25-35); MEAN CORPUSCULAR HGB CONC 33 g/dL (31-37); MEAN CORPUSCULAR VOLUME 94 fL (79-100); MONO # 0.7 x10^3/uL (0.0-1.1); MONO % 9 % (0-9); NEUT # 4.6 x10^3uL (1.8-7.7); NEUT % 63 % (31-73); PLATELET COUNT 319 x10^3/uL (140-400); RED BLOOD COUNT 4.52 x10^6/uL (3.50-5.40); RED CELL DISTRIBUTION WIDTH 16.6 % (11.5-14.5); WHITE BLOOD COUNT 7.2 x10^3/uL (4.0-11.0)
[2020-02-03 08:00] LABS: ALBUMIN 3.3 g/dL (3.4-5.0); ALBUMIN/GLOBULIN RATIO 0.8 (1.0-1.7); CALCIUM 9.4 mg/dL (8.5-10.1); CREATININE 0.6 mg/dL (0.6-1.0); GFR 99.1; POTASSIUM 3.9 mmol/L (3.5-5.1); TOTAL BILIRUBIN 0.2 mg/dL (0.2-1.0); TOTAL PROTEIN 7.4 g/dL (6.4-8.2)
[2020-02-03] MEDS: FLUoxetine HCL 20 MG CAPSULE PO SCH (09:00)
[2020-02-03] MEDS: CHOLECALCIFEROL (VITAMIN D3) 1,000 UNIT TABLET PO SCH (09:00)
[2020-02-03] MEDS: ASPIRIN ENTERIC COATED 81 MG TABLET.DR. PO SCH (09:00)
[2020-02-03] MEDS: THIAMINE 100 MG TABLET. PO SCH (09:00)
[2020-02-03] MEDS: buPROPion XL 150 MG TAB.ER.24H PO SCH (09:00)
[2020-02-03] MEDS: MIDODRINE 5 MG TABLET PO SCH ×2 (09:00→17:41)
[2020-02-03] MEDS: MULTIVITAMIN with MINERAL TABLET. PO SCH (09:00)
[2020-02-03] MEDS: busPIRone 5 MG TABLET. PO SCH ×2 (09:00→17:40)
[2020-02-03] MEDS: CETIRIZINE HCL 10 MG TABLET PO SCH (09:01)
[2020-02-03 16:35] VITALS: BP 106/70
[2020-02-03] MEDS: cloZAPine 25 MG TABLET PO SCH (20:25)
[2020-02-03] MEDS: DIVALPROEX ER 250 MG TAB.ER.24H. PO SCH (20:25)
[2020-02-03] MEDS: DIVALPROEX ER 500 MG TAB.ER.24H PO SCH (20:25)
--- NOTE | 2020-02-03 21:52 | PDOC ---
Exam Note: Norris Note: Please also refer to the separate dictated note~for this date of service dictated separately.~Patient seen individually. Discussed the patient with Nursing staff reviewed the chart.~Reviewed interim history and current functioning. Reviewed vital signs,~Labs/ Radiology~and current medications noted below. Continue current treatment with the changes noted in the dictated addendum note Assessment: Vital Signs/I&O: Vital Signs Date Time Temp Pulse Resp B/P (MAP) Pulse Ox O2 Delivery O2 Flow Rate FiO2 02/03/20 17:41 86 106/70 02/03/20 16:35 98.4 18 96 02/02/20 05:25 Room Air I & O 02/02/20 02/02/20 02/03/20 15:00 23:00 07:00 Intake Total 360 ml 120 ml 100 ml Balance 360 ml 120 ml 100 ml Labs: Laboratory Tests Test 02/03/20 07:12 White Blood Count 7.2 x10^3/uL (4.0-11.0) Red Blood Count 4.52 x10^6/uL (3.50-5.40) Hemoglobin 13.8 g/dL (12.0-15.5) Hematocrit 42.4 % (36.0-47.0) Mean Corpuscular Volume 94 fL (79-100) Mean Corpuscular Hemoglobin 31 pg (25-35) Mean Corpuscular Hemoglobin Concent 33 g/dL (31-37) Red Cell Distribution Width 16.6 % (11.5-14.5) H Platelet Count 319 x10^3/uL (140-400) Neutrophils (%) (Auto) 63 % (31-73) Lymphocytes (%) (Auto) 25 % (24-48) Monocytes (%) (Auto) 9 % (0-9) Eosinophils (%) (Auto) 2 % (0-3) Basophils (%) (Auto) 0 % (0-3) Neutrophils # (Auto) 4.6 x10^3uL (1.8-7.7) Lymphocytes # (Auto) 1.8 x10^3/uL (1.0-4.8) Monocytes # (Auto) 0.7 x10^3/uL (0.0-1.1) Eosinophils # (Auto) 0.2 x10^3/uL (0.0-0.7) Basophils # (Auto) 0.0 x10^3/uL (0.0-0.2) Sodium Level 144 mmol/L (136-145) Potassium Level 3.9 mmol/L (3.5-5.1) Chloride Level 106 mmol/L (98-107) Carbon Dioxide Level 26 mmol/L (21-32) Anion Gap 12 (6-14) Blood Urea Nitrogen 10 mg/dL (7-20) Creatinine 0.6 mg/dL (0.6-1.0) Estimated GFR (Cockcroft-Gault) 99.1 BUN/Creatinine Ratio 17 (6-20) Glucose Level 91 mg/dL (70-99) Calcium Level 9.4 mg/dL (8.5-10.1) Total Bilirubin 0.2 mg/dL (0.2-1.0) Aspartate Amino Transferase (AST) 21 U/L (15-37) Alanine Aminotransferase (ALT) 18 U/L (14-59) Alkaline Phosphatase 59 U/L (46-116) Total Protein 7.4 g/dL (6.4-8.2) Albumin 3.3 g/dL (3.4-5.0) L Albumin/Globulin Ratio 0.8 (1.0-1.7) L Current Medications: Meds: Current Medications Medications (Trade) Dose Ordered Sig/Liv Route PRN Reason Start Time Stop Time Status Last Admin Dose Admin Clozapine (Clozaril) 75 mg HS PO 02/03/20 21:00 02/03/20 20:25 I have reviewed the current psychotropics carefully including drug interactions. Risk benefit ratio favors no change other than as noted in my dictated progress note. Diagnosis: Problems: (1) Bipolar disorder, curr episode mixed, severe, with psychotic features (2) Anxiety disorder (3) Impulse control disorder (4) Schizoaffective disorder, chronic condition with acute exacerbation (5) Personality disorder in adult LI CABRERA MD Feb 03, 2020 21:52
[2020-02-04 05:49] VITALS: BP 97/65
[2020-02-04] MEDS: THIAMINE 100 MG TABLET. PO SCH (09:40)
[2020-02-04] MEDS: MULTIVITAMIN with MINERAL TABLET. PO SCH (09:40)
[2020-02-04] MEDS: CETIRIZINE HCL 10 MG TABLET PO SCH (09:40)
[2020-02-04] MEDS: busPIRone 5 MG TABLET. PO SCH ×2 (09:40→17:23)
[2020-02-04] MEDS: MIDODRINE 5 MG TABLET PO SCH ×2 (09:40→17:23)
[2020-02-04] MEDS: ASPIRIN ENTERIC COATED 81 MG TABLET.DR. PO SCH (09:41)
[2020-02-04] MEDS: buPROPion XL 150 MG TAB.ER.24H PO SCH (09:41)
[2020-02-04] MEDS: FLUoxetine HCL 20 MG CAPSULE PO SCH (09:41)
[2020-02-04] MEDS: CHOLECALCIFEROL (VITAMIN D3) 1,000 UNIT TABLET PO SCH (09:41)
[2020-02-04 16:02] VITALS: BP 95/64
[2020-02-04] MEDS: DIVALPROEX ER 250 MG TAB.ER.24H. PO SCH (20:30)
[2020-02-04] MEDS: cloZAPine 25 MG TABLET PO SCH (20:30)
[2020-02-04] MEDS: DIVALPROEX ER 500 MG TAB.ER.24H PO SCH (20:30)
--- NOTE | 2020-02-04 21:45 | PDOC ---
Exam Note: Norris Note: Please also refer to the separate dictated note~for this date of service dictated separately.~Patient seen individually. Discussed the patient with Nursing staff reviewed the chart.~Reviewed interim history and current functioning. Reviewed vital signs,~Labs/ Radiology~and current medications noted below. Continue current treatment with the changes noted in the dictated addendum note Assessment: Vital Signs/I&O: Vital Signs Date Time Temp Pulse Resp B/P (MAP) Pulse Ox O2 Delivery O2 Flow Rate FiO2 02/04/20 17:23 81 95/64 02/04/20 16:02 97.8 14 97 02/04/20 05:49 Room Air I & O 02/03/20 02/03/20 02/04/20 15:00 23:00 07:00 Intake Total 600 ml 180 ml Balance 600 ml 180 ml Current Medications: I have reviewed the current psychotropics carefully including drug interactions. Risk benefit ratio favors no change other than as noted in my dictated progress note. Diagnosis: Problems: (1) Bipolar disorder, curr episode mixed, severe, with psychotic features (2) Anxiety disorder (3) Impulse control disorder (4) Schizoaffective disorder, chronic condition with acute exacerbation (5) Personality disorder in adult LI CABRERA MD Feb 04, 2020 21:45
--- NOTE | 2020-02-05 05:21 | PN ---
DATE: 02/03/2020 PSYCHIATRIC PROGRESS NOTE This late entry 02/03/2020 covers elements not covered in my initial note. SUBJECTIVE: I met with the patient in the evening of 02/03/2020. Per nursing report, the patient has been somewhat withdrawn. Over the weekend, she was putting herself on the floor and said she slipped out of her bed. She appears less psychotic, less preoccupied with Maira ____ believe hallucination. REVIEW OF SYSTEMS: No CV, , pulmonary, eye system symptoms on review. MENTAL STATUS EXAM: Oriented to herself and situation. Speech has some latency, coherent, often responses monosyllabic. Abstraction fair, computation impaired, language function intact. Mood and affect somewhat withdrawn, but improved. LABORATORY DATA: Reviewed. WBC 7.2, neutrophils 63% adequate. IMPRESSION: Unchanged from initial note. PLAN: We will increase the Clozaril from 50 mg at bedtime to 75 mg at bedtime. Rest unchanged for now. LI CABRERA MD DR: FRED/minnie JOB#: [id number] / [id number]
[2020-02-05 05:51] VITALS: BP 100/69
[2020-02-05] MEDS: ASPIRIN ENTERIC COATED 81 MG TABLET.DR. PO SCH (08:16)
[2020-02-05] MEDS: busPIRone 5 MG TABLET. PO SCH ×2 (08:16→17:28)
[2020-02-05] MEDS: MIDODRINE 5 MG TABLET PO SCH ×2 (08:16→17:28)
[2020-02-05] MEDS: MULTIVITAMIN with MINERAL TABLET. PO SCH (08:16)
[2020-02-05] MEDS: THIAMINE 100 MG TABLET. PO SCH (08:16)
[2020-02-05] MEDS: FLUoxetine HCL 20 MG CAPSULE PO SCH (08:17)
[2020-02-05] MEDS: CHOLECALCIFEROL (VITAMIN D3) 1,000 UNIT TABLET PO SCH (08:17)
[2020-02-05] MEDS: buPROPion XL 150 MG TAB.ER.24H PO SCH (08:17)
[2020-02-05] MEDS: CETIRIZINE HCL 10 MG TABLET PO SCH (08:17)
[2020-02-05 16:37] VITALS: BP 112/67
[2020-02-05] MEDS: DIVALPROEX ER 250 MG TAB.ER.24H. PO SCH (20:45)
[2020-02-05] MEDS: cloZAPine 25 MG TABLET PO SCH (20:45)
[2020-02-05] MEDS: DIVALPROEX ER 500 MG TAB.ER.24H PO SCH (20:45)
--- NOTE | 2020-02-05 21:23 | PN ---
DATE: 02/04/2020 This late entry 02/04/2020 covers elements not covered in my initial note. SUBJECTIVE: I met with the patient in the evening of 02/04/2020. Per EVELIO Fonseca, the patient slept 8 hours previous night. She remains somewhat withdrawn, less paranoid, psychotic, tolerating the increased Clozaril to 75 mg a day. REVIEW OF SYSTEMS: No CV, , pulmonary, eye system symptoms on review, does complain of tiredness as I met with her in her room. MENTAL STATUS EXAM: Oriented to herself and situation. Speech is coherent, abstraction fair, computation impaired, language function intact. Mood and affect withdrawn. LABORATORY DATA: Reviewed. IMPRESSION: Unchanged from initial note. PLAN: No change from initial note. MAN Adonis CABRERA MD DR: FRED/minnie JOB#: [id number] / [id number]
--- NOTE | 2020-02-05 22:06 | PDOC ---
Exam Note: Norris Note: Please also refer to the separate dictated note~for this date of service dictated separately.~Patient seen individually. Discussed the patient with Nursing staff reviewed the chart.~Reviewed interim history and current functioning. Reviewed vital signs,~Labs/ Radiology~and current medications noted below. Continue current treatment with the changes noted in the dictated addendum note Assessment: Vital Signs/I&O: Vital Signs Date Time Temp Pulse Resp B/P (MAP) Pulse Ox O2 Delivery O2 Flow Rate FiO2 02/05/20 17:28 86 112/67 02/05/20 16:37 97.3 18 92 02/04/20 05:49 Room Air I & O 02/04/20 02/04/20 02/05/20 15:00 23:00 07:00 Intake Total 720 ml 340 ml Balance 720 ml 340 ml Current Medications: I have reviewed the current psychotropics carefully including drug interactions. Risk benefit ratio favors no change other than as noted in my dictated progress note. Diagnosis: Problems: (1) Bipolar disorder, curr episode mixed, severe, with psychotic features (2) Anxiety disorder (3) Impulse control disorder (4) Schizoaffective disorder, chronic condition with acute exacerbation (5) Personality disorder in adult LI CABRERA MD Feb 05, 2020 22:06
[2020-02-06] MEDS: ACETAMINOPHEN 325 MG TABLET PO PRN ×2 (05:08→20:11)
[2020-02-06 05:51] VITALS: BP 100/66
[2020-02-06] MEDS: busPIRone 5 MG TABLET. PO SCH ×2 (08:41→17:23)
[2020-02-06] MEDS: MULTIVITAMIN with MINERAL TABLET. PO SCH (08:41)
[2020-02-06] MEDS: THIAMINE 100 MG TABLET. PO SCH (08:42)
[2020-02-06] MEDS: ASPIRIN ENTERIC COATED 81 MG TABLET.DR. PO SCH (08:42)
[2020-02-06] MEDS: CHOLECALCIFEROL (VITAMIN D3) 1,000 UNIT TABLET PO SCH (08:42)
[2020-02-06] MEDS: MIDODRINE 5 MG TABLET PO SCH ×2 (08:42→17:23)
[2020-02-06] MEDS: FLUoxetine HCL 20 MG CAPSULE PO SCH (08:42)
[2020-02-06] MEDS: buPROPion XL 150 MG TAB.ER.24H PO SCH (08:42)
[2020-02-06] MEDS: CETIRIZINE HCL 10 MG TABLET PO SCH (08:43)
[2020-02-06 16:02] VITALS: BP 103/65
[2020-02-06] MEDS: DIVALPROEX ER 250 MG TAB.ER.24H. PO SCH (20:12)
[2020-02-06] MEDS: DIVALPROEX ER 500 MG TAB.ER.24H PO SCH (20:12)
[2020-02-06] MEDS: cloZAPine 25 MG TABLET PO SCH (20:12)
--- NOTE | 2020-02-06 23:03 | PDOC ---
Exam Note: Norris Note: Please also refer to the separate dictated note~for this date of service dictated separately.~Patient seen individually. Discussed the patient with Nursing staff reviewed the chart.~Reviewed interim history and current functioning. Reviewed vital signs,~Labs/ Radiology~and current medications noted below. Continue current treatment with the changes noted in the dictated addendum note Assessment: Vital Signs/I&O: Vital Signs Date Time Temp Pulse Resp B/P (MAP) Pulse Ox O2 Delivery O2 Flow Rate FiO2 02/06/20 17:23 78 103/65 02/06/20 16:02 98.4 18 94 02/04/20 05:49 Room Air I & O 02/05/20 02/05/20 02/06/20 15:00 23:00 07:00 Intake Total 720 ml 600 ml Balance 720 ml 600 ml Current Medications: I have reviewed the current psychotropics carefully including drug interactions. Risk benefit ratio favors no change other than as noted in my dictated progress note. Diagnosis: Problems: (1) Bipolar disorder, curr episode mixed, severe, with psychotic features (2) Anxiety disorder (3) Impulse control disorder (4) Schizoaffective disorder, chronic condition with acute exacerbation (5) Personality disorder in adult LI CABRERA MD Feb 06, 2020 23:03
[2020-02-07 06:26] VITALS: BP 107/56
[2020-02-07] MEDS: ASPIRIN ENTERIC COATED 81 MG TABLET.DR. PO SCH (07:59)
[2020-02-07] MEDS: CHOLECALCIFEROL (VITAMIN D3) 1,000 UNIT TABLET PO SCH (08:00)
[2020-02-07] MEDS: CETIRIZINE HCL 10 MG TABLET PO SCH (08:00)
[2020-02-07] MEDS: buPROPion XL 150 MG TAB.ER.24H PO SCH (08:00)
[2020-02-07] MEDS: THIAMINE 100 MG TABLET. PO SCH (08:00)
[2020-02-07] MEDS: FLUoxetine HCL 20 MG CAPSULE PO SCH (08:00)
[2020-02-07] MEDS: MULTIVITAMIN with MINERAL TABLET. PO SCH (08:00)
[2020-02-07] MEDS: MIDODRINE 5 MG TABLET PO SCH ×2 (08:01→16:40)
[2020-02-07] MEDS: busPIRone 5 MG TABLET. PO SCH ×2 (08:01→16:39)
--- NOTE | 2020-02-07 10:58 | PN ---
DATE: 02/05/2020 PSYCHIATRIC PROGRESS NOTE This late entry 02/05/2020 covers elements not covered in my initial note. SUBJECTIVE: I met with the patient evening of 02/05/2020. Per EVELIO Fonseca, the patient is doing better. Did discuss with Cherelle, social service staff regarding discharge plans. She slept 6-3/4 hours previous night. REVIEW OF SYSTEMS: Positive for some tiredness. No CV, , pulmonary, eye system symptoms on review. MENTAL STATUS EXAM: Oriented to herself and situation. Speech has some latency, coherent. Abstraction fair, computation impaired, language function intact. Mood and affect somewhat withdrawn. LABORATORY DATA: Reviewed. IMPRESSION: Schizoaffective disorder, bipolar type, mixed with psychotic features, mild cognitive impairment. Rest unchanged. PLAN: No change from initial note. MAN Adonis CABRERA MD DR: FRED/minnie JOB#: [id number] / [id number]
[2020-02-07 16:37] VITALS: BP 102/67
--- NOTE | 2020-02-07 17:39 | PN ---
DATE: PSYCHIATRIC PROGRESS NOTE This late entry 02/06/2020 covers elements not covered in my initial note. SUBJECTIVE: I met with the patient evening of 02/06/2020 and staffed at a treatment team meeting with the entire team in the morning and, Fahad, social service staff from [facility] had attended the conference. Per EVELIO Fonseca, the patient slept 7 hours previous night, appetite 85%. The day before she put herself on the floor in the hallway because of ____, questionable delusions she has and she was somewhat suspicious of medications, but on 02/06/2020, she was doing better. She states she has mental conversations with her , still indicative of some ongoing psychotic symptoms. REVIEW OF SYSTEMS: No CV, , pulmonary, eye system symptoms on review. MENTAL STATUS EXAM: Oriented to herself and situation. Speech is coherent, abstraction fair, computation impaired, language function intact, attention span short. Mood and affect withdrawn. LABORATORY DATA: Reviewed. IMPRESSION: Unchanged from initial note. PLAN: No change from initial note. LI CABRERA MD DR: FRED/minnie JOB#: [id number] / [id number]
[2020-02-07] MEDS: DIVALPROEX ER 250 MG TAB.ER.24H. PO SCH (21:15)
[2020-02-07] MEDS: cloZAPine 25 MG TABLET PO SCH (21:16)
[2020-02-07] MEDS: DIVALPROEX ER 500 MG TAB.ER.24H PO SCH (21:16)
--- NOTE | 2020-02-07 23:00 | PDOC ---
Exam Note: Norris Note: Please also refer to the separate dictated note~for this date of service dictated separately. Discussed the patient with Nursing staff reviewed the chart.~Reviewed interim history and current functioning. Reviewed vital signs,~Labs/ Radiology~and current medications noted below. Continue current treatment with the changes noted in the dictated addendum note Assessment: Vital Signs/I&O: Vital Signs Date Time Temp Pulse Resp B/P (MAP) Pulse Ox O2 Delivery O2 Flow Rate FiO2 02/07/20 16:40 83 102/67 02/07/20 16:37 98.6 16 89 02/07/20 06:26 Room Air I & O 02/06/20 02/06/20 02/07/20 15:00 23:00 07:00 Intake Total 600 ml 480 ml Balance 600 ml 480 ml Current Medications: I have reviewed the current psychotropics carefully including drug interactions. Risk benefit ratio favors no change other than as noted in my dictated progress note. Diagnosis: Problems: (1) Bipolar disorder, curr episode mixed, severe, with psychotic features (2) Anxiety disorder (3) Impulse control disorder (4) Schizoaffective disorder, chronic condition with acute exacerbation (5) Personality disorder in adult LI CABRERA MD Feb 07, 2020 23:00
[2020-02-08 06:55] VITALS: BP 98/61
[2020-02-08] MEDS: ASPIRIN ENTERIC COATED 81 MG TABLET.DR. PO SCH (08:55)
[2020-02-08] MEDS: MIDODRINE 5 MG TABLET PO SCH ×2 (08:56→17:47)
[2020-02-08] MEDS: busPIRone 5 MG TABLET. PO SCH ×2 (08:56→17:47)
[2020-02-08] MEDS: buPROPion XL 150 MG TAB.ER.24H PO SCH (08:56)
[2020-02-08] MEDS: CHOLECALCIFEROL (VITAMIN D3) 1,000 UNIT TABLET PO SCH (08:56)
[2020-02-08] MEDS: MULTIVITAMIN with MINERAL TABLET. PO SCH (08:57)
[2020-02-08] MEDS: CETIRIZINE HCL 10 MG TABLET PO SCH (08:57)
[2020-02-08] MEDS: THIAMINE 100 MG TABLET. PO SCH (08:57)
[2020-02-08] MEDS: FLUoxetine HCL 20 MG CAPSULE PO SCH (08:57)
[2020-02-08 16:08] VITALS: BP 108/67
[2020-02-08] MEDS: DIVALPROEX ER 500 MG TAB.ER.24H PO SCH (20:08)
[2020-02-08] MEDS: DIVALPROEX ER 250 MG TAB.ER.24H. PO SCH (20:08)
[2020-02-08] MEDS: cloZAPine 25 MG TABLET PO SCH (20:09)
--- NOTE | 2020-02-08 22:43 | PDOC ---
Exam Note: Norris Note: Please also refer to the separate dictated note~for this date of service dictated separately. Discussed the patient with Nursing staff reviewed the chart.~Reviewed interim history and current functioning. Reviewed vital signs,~Labs/ Radiology~and current medications noted below. Continue current treatment with the changes noted in the dictated addendum note Assessment: Vital Signs/I&O: Vital Signs Date Time Temp Pulse Resp B/P (MAP) Pulse Ox O2 Delivery O2 Flow Rate FiO2 02/08/20 17:47 88 108/67 02/08/20 16:08 97.8 18 90 02/07/20 06:26 Room Air I & O 02/07/20 02/07/20 02/08/20 15:00 23:00 07:00 Intake Total 720 ml 240 ml 100 ml Balance 720 ml 240 ml 100 ml Current Medications: I have reviewed the current psychotropics carefully including drug interactions. Risk benefit ratio favors no change other than as noted in my dictated progress note. Diagnosis: Problems: (1) Bipolar disorder, curr episode mixed, severe, with psychotic features (2) Anxiety disorder (3) Impulse control disorder (4) Schizoaffective disorder, chronic condition with acute exacerbation (5) Personality disorder in adult LI CABRERA MD Feb 08, 2020 22:43
[2020-02-09 06:12] VITALS: BP 99/64
[2020-02-09] MEDS: ACETAMINOPHEN 325 MG TABLET PO PRN (06:38)
[2020-02-09] MEDS: CETIRIZINE HCL 10 MG TABLET PO SCH (08:29)
[2020-02-09] MEDS: FLUoxetine HCL 20 MG CAPSULE PO SCH (08:30)
[2020-02-09] MEDS: buPROPion XL 150 MG TAB.ER.24H PO SCH (08:30)
[2020-02-09] MEDS: THIAMINE 100 MG TABLET. PO SCH (08:30)
[2020-02-09] MEDS: busPIRone 5 MG TABLET. PO SCH ×2 (08:30→16:56)
[2020-02-09] MEDS: CHOLECALCIFEROL (VITAMIN D3) 1,000 UNIT TABLET PO SCH (08:30)
[2020-02-09] MEDS: MIDODRINE 5 MG TABLET PO SCH ×2 (08:30→16:57)
[2020-02-09] MEDS: ASPIRIN ENTERIC COATED 81 MG TABLET.DR. PO SCH (08:30)
[2020-02-09] MEDS: MULTIVITAMIN with MINERAL TABLET. PO SCH (08:30)
[2020-02-09 11:58] LABS: BASO % 0 % (0-3); EOS # 0.2 x10^3/uL (0.0-0.7); EOS % 2 % (0-3); HEMATOCRIT 42.9 % (36.0-47.0); HEMOGLOBIN 13.9 g/dL (12.0-15.5); LYMPH # 1.5 x10^3/uL (1.0-4.8); LYMPH % 19 % (24-48); MEAN CORPUSCULAR HEMOGLOBIN 31 pg (25-35); MEAN CORPUSCULAR HGB CONC 32 g/dL (31-37); MEAN CORPUSCULAR VOLUME 94 fL (79-100); MONO # 0.7 x10^3/uL (0.0-1.1); MONO % 9 % (0-9); NEUT # 5.9 x10^3uL (1.8-7.7); NEUT % 70 % (31-73); PLATELET COUNT 305 x10^3/uL (140-400); RED BLOOD COUNT 4.56 x10^6/uL (3.50-5.40); RED CELL DISTRIBUTION WIDTH 16.8 % (11.5-14.5); WHITE BLOOD COUNT 8.3 x10^3/uL (4.0-11.0)
[2020-02-09 12:20] LABS: ALBUMIN 3.1 g/dL (3.4-5.0); ALBUMIN/GLOBULIN RATIO 0.7 (1.0-1.7); CALCIUM 9.7 mg/dL (8.5-10.1); CREATININE 0.6 mg/dL (0.6-1.0); GFR 99.1; POTASSIUM 4.2 mmol/L (3.5-5.1); TOTAL BILIRUBIN 0.2 mg/dL (0.2-1.0); TOTAL PROTEIN 7.8 g/dL (6.4-8.2)
[2020-02-09 16:33] VITALS: BP 111/73
[2020-02-09] MEDS: DIVALPROEX ER 500 MG TAB.ER.24H PO SCH (20:14)
[2020-02-09] MEDS: DIVALPROEX ER 250 MG TAB.ER.24H. PO SCH (20:14)
[2020-02-09] MEDS: cloZAPine 25 MG TABLET PO SCH (20:15)
--- NOTE | 2020-02-09 21:49 | PDOC ---
Exam Note: Norris Note: Please also refer to the separate dictated note~for this date of service dictated separately. Discussed the patient with Nursing staff reviewed the chart.~Reviewed interim history and current functioning. Reviewed vital signs,~Labs/ Radiology~and current medications noted below. Continue current treatment with the changes noted in the dictated addendum note Assessment: Vital Signs/I&O: Vital Signs Date Time Temp Pulse Resp B/P (MAP) Pulse Ox O2 Delivery O2 Flow Rate FiO2 02/09/20 16:57 79 111/73 02/09/20 16:33 97.7 18 90 Room Air I & O 02/08/20 02/08/20 02/09/20 15:00 23:00 07:00 Intake Total 600 ml 340 ml Balance 600 ml 340 ml Labs: Laboratory Tests Test 02/09/20 10:50 White Blood Count 8.3 x10^3/uL (4.0-11.0) Red Blood Count 4.56 x10^6/uL (3.50-5.40) Hemoglobin 13.9 g/dL (12.0-15.5) Hematocrit 42.9 % (36.0-47.0) Mean Corpuscular Volume 94 fL (79-100) Mean Corpuscular Hemoglobin 31 pg (25-35) Mean Corpuscular Hemoglobin Concent 32 g/dL (31-37) Red Cell Distribution Width 16.8 % (11.5-14.5) H Platelet Count 305 x10^3/uL (140-400) Neutrophils (%) (Auto) 70 % (31-73) Lymphocytes (%) (Auto) 19 % (24-48) L Monocytes (%) (Auto) 9 % (0-9) Eosinophils (%) (Auto) 2 % (0-3) Basophils (%) (Auto) 0 % (0-3) Neutrophils # (Auto) 5.9 x10^3uL (1.8-7.7) Lymphocytes # (Auto) 1.5 x10^3/uL (1.0-4.8) Monocytes # (Auto) 0.7 x10^3/uL (0.0-1.1) Eosinophils # (Auto) 0.2 x10^3/uL (0.0-0.7) Basophils # (Auto) 0.0 x10^3/uL (0.0-0.2) Sodium Level 140 mmol/L (136-145) Potassium Level 4.2 mmol/L (3.5-5.1) Chloride Level 105 mmol/L (98-107) Carbon Dioxide Level 28 mmol/L (21-32) Anion Gap 7 (6-14) Blood Urea Nitrogen 12 mg/dL (7-20) Creatinine 0.6 mg/dL (0.6-1.0) Estimated GFR (Cockcroft-Gault) 99.1 BUN/Creatinine Ratio 20 (6-20) Glucose Level 102 mg/dL (70-99) H Calcium Level 9.7 mg/dL (8.5-10.1) Total Bilirubin 0.2 mg/dL (0.2-1.0) Aspartate Amino Transferase (AST) 23 U/L (15-37) Alanine Aminotransferase (ALT) 22 U/L (14-59) Alkaline Phosphatase 61 U/L (46-116) Total Protein 7.8 g/dL (6.4-8.2) Albumin 3.1 g/dL (3.4-5.0) L Albumin/Globulin Ratio 0.7 (1.0-1.7) L Current Medications: I have reviewed the current psychotropics carefully including drug interactions. Risk benefit ratio favors no change other than as noted in my dictated progress note. Diagnosis: Problems: (1) Bipolar disorder, curr episode mixed, severe, with psychotic features (2) Anxiety disorder (3) Impulse control disorder (4) Schizoaffective disorder, chronic condition with acute exacerbation (5) Personality disorder in adult RICKLI MD Feb 09, 2020 21:49
[2020-02-10 06:13] VITALS: BP 96/55
[2020-02-10] MEDS: buPROPion XL 150 MG TAB.ER.24H PO SCH (09:19)
[2020-02-10] MEDS: ASPIRIN ENTERIC COATED 81 MG TABLET.DR. PO SCH (09:19)
[2020-02-10] MEDS: MULTIVITAMIN with MINERAL TABLET. PO SCH (09:19)
[2020-02-10] MEDS: FLUoxetine HCL 20 MG CAPSULE PO SCH (09:19)
[2020-02-10] MEDS: busPIRone 5 MG TABLET. PO SCH ×2 (09:19→17:05)
[2020-02-10] MEDS: CHOLECALCIFEROL (VITAMIN D3) 1,000 UNIT TABLET PO SCH (09:19)
[2020-02-10] MEDS: CETIRIZINE HCL 10 MG TABLET PO SCH (09:20)
[2020-02-10] MEDS: THIAMINE 100 MG TABLET. PO SCH (09:20)
[2020-02-10] MEDS: MIDODRINE 5 MG TABLET PO SCH ×2 (09:20→17:05)
[2020-02-10 16:23] VITALS: BP 100/67
[2020-02-10] MEDS: DIVALPROEX ER 500 MG TAB.ER.24H PO SCH (20:09)
[2020-02-10] MEDS: DIVALPROEX ER 250 MG TAB.ER.24H. PO SCH (20:09)
[2020-02-10] MEDS: cloZAPine 25 MG TABLET PO SCH (20:10)
--- NOTE | 2020-02-10 21:53 | PDOC ---
Exam Note: Norris Note: Please also refer to the separate dictated note~for this date of service dictated separately. Discussed the patient with Nursing staff reviewed the chart.~Reviewed interim history and current functioning. Reviewed vital signs,~Labs/ Radiology~and current medications noted below. Continue current treatment with the changes noted in the dictated addendum note Assessment: Vital Signs/I&O: Vital Signs Date Time Temp Pulse Resp B/P (MAP) Pulse Ox O2 Delivery O2 Flow Rate FiO2 02/10/20 17:05 81 100/67 02/10/20 16:23 98.0 16 91 02/09/20 16:33 Room Air I & O 02/09/20 02/09/20 02/10/20 15:00 23:00 07:00 Intake Total 600 ml 510 ml Balance 600 ml 510 ml Current Medications: I have reviewed the current psychotropics carefully including drug interactions. Risk benefit ratio favors no change other than as noted in my dictated progress note. Diagnosis: Problems: (1) Bipolar disorder, curr episode mixed, severe, with psychotic features (2) Anxiety disorder (3) Impulse control disorder (4) Schizoaffective disorder, chronic condition with acute exacerbation (5) Personality disorder in adult LI CABRERA MD Feb 10, 2020 21:53
[2020-02-11 05:48] VITALS: BP 102/65
[2020-02-11] MEDS: buPROPion XL 150 MG TAB.ER.24H PO SCH (08:19)
[2020-02-11] MEDS: ASPIRIN ENTERIC COATED 81 MG TABLET.DR. PO SCH (08:20)
[2020-02-11] MEDS: CETIRIZINE HCL 10 MG TABLET PO SCH (08:20)
[2020-02-11] MEDS: CHOLECALCIFEROL (VITAMIN D3) 1,000 UNIT TABLET PO SCH (08:20)
[2020-02-11] MEDS: FLUoxetine HCL 20 MG CAPSULE PO SCH (08:20)
[2020-02-11] MEDS: THIAMINE 100 MG TABLET. PO SCH (08:20)
[2020-02-11] MEDS: busPIRone 5 MG TABLET. PO SCH ×2 (08:20→16:27)
[2020-02-11] MEDS: MULTIVITAMIN with MINERAL TABLET. PO SCH (08:20)
[2020-02-11] MEDS: MIDODRINE 5 MG TABLET PO SCH ×2 (08:21→16:27)
[2020-02-11 15:40] VITALS: BP 124/75
[2020-02-11] MEDS: cloZAPine 100 MG TABLET PO SCH (19:56)
[2020-02-11] MEDS: DIVALPROEX ER 500 MG TAB.ER.24H PO SCH (19:57)
[2020-02-11] MEDS ORDERED: DIVALPROEX ER 500 MG TAB.ER.24H PO SCH (21:00)
[2020-02-12 06:03] VITALS: BP 105/65
--- NOTE | 2020-02-12 06:53 | PDOC ---
Exam Note: Norris Note: This is a late entry for 02/07/2020. Currently, the unit is shutdown for any admissions and discharges as directed by the Centers for Disease Control (CDC) and the [facility] ([facility]) because of Coronavirus (COVID-19) exposure on the unit. S/O: This is a Telepsychiatry Progress Note. This note covers elements not covered in my initial note. The patient was reviewed with nursing staff, reviewed the chart and TeleHealth Services provided for this date for the patient. Discussed with EVELIO Haley. She slept 8-1/4 hours. She has not been talking about seeing the imaginary Maira. ROS: Ambulation impaired. Gait is unsteady. No CV, , Pulmonary, Eye system symptoms on review. MSE: Oriented to herself, and situation. Speech has some latency, coherent. Abstraction fair. Computation impaired. Language function intact. Mood and affect somewhat withdrawn, less paranoid. No suicidal or homicidal ideation. Labs: Reviewed. Imp: Schizoaffective disorder bipolar type, mixed with psychotic features in partial remission. Mild cognitive impairment. Plan: No change from my initial note. Assessment: Vital Signs/I&O: Vital Signs Date Time Temp Pulse Resp B/P (MAP) Pulse Ox O2 Delivery O2 Flow Rate FiO2 02/12/20 06:03 98.2 83 18 105/65 (78) 90 02/09/20 16:33 Room Air I & O 02/11/20 02/11/20 02/12/20 15:00 23:00 07:00 Intake Total 600 ml 340 ml Balance 600 ml 340 ml Current Medications: Meds: Current Medications Medications (Trade) Dose Ordered Sig/Liv Route PRN Reason Start Time Stop Time Status Last Admin Dose Admin Clozapine (Clozaril) 100 mg QHS PO 02/11/20 21:00 02/11/20 19:56 Divalproex Sodium (Depakote Er) 500 mg QHS PO 02/11/20 21:00 02/11/20 20:00 I have reviewed the current psychotropics carefully including drug interactions. Risk benefit ratio favors no change other than as noted in my dictated progress note. Diagnosis: Problems: (1) Bipolar disorder, curr episode mixed, severe, with psychotic features (2) Anxiety disorder (3) Impulse control disorder (4) Schizoaffective disorder, chronic condition with acute exacerbation (5) Personality disorder in adult LI CABRERA MD Feb 12, 2020 06:53
--- NOTE | 2020-02-12 07:31 | PDOC ---
Exam Note: Norris Note: This is a late entry for 02/08/2020. Currently, the unit is shutdown for any admissions and discharges as directed by the Centers for Disease Control (CDC) and the [facility] ([facility]) because of Coronavirus (COVID-19) exposure on the unit. S/O: This note covers elements not covered in my initial note. The patient was reviewed with nursing staff, reviewed the chart and TeleHealth Services provided for this date for the patient. Discussed with EVELIO Andrew. She slept 8 hours, withdrawn. ROS: Ambulation impaired. Gait is unsteady. No CV, , Pulmonary, Eye system symptoms on review. MSE: Oriented to herself, and situation. Speech has some latency, coherent. Abstraction fair. Computation impaired. Language function intact. Mood and affect withdrawn, less paranoid. No suicidal or homicidal ideation. Labs: Reviewed. Imp: Schizoaffective disorder bipolar type, mixed with psychotic features in partial remission. Mild cognitive impairment. Plan: No change from my initial note. Assessment: Vital Signs/I&O: Vital Signs Date Time Temp Pulse Resp B/P (MAP) Pulse Ox O2 Delivery O2 Flow Rate FiO2 02/12/20 06:03 98.2 83 18 105/65 (78) 90 02/09/20 16:33 Room Air I & O 02/11/20 02/11/20 02/12/20 15:00 23:00 07:00 Intake Total 600 ml 340 ml Balance 600 ml 340 ml Current Medications: Meds: Current Medications Medications (Trade) Dose Ordered Sig/Liv Route PRN Reason Start Time Stop Time Status Last Admin Dose Admin Clozapine (Clozaril) 100 mg QHS PO 02/11/20 21:00 02/11/20 19:56 Divalproex Sodium (Depakote Er) 500 mg QHS PO 02/11/20 21:00 02/11/20 20:00 I have reviewed the current psychotropics carefully including drug interactions. Risk benefit ratio favors no change other than as noted in my dictated progress note. Diagnosis: Problems: (1) Bipolar disorder, curr episode mixed, severe, with psychotic features (2) Anxiety disorder (3) Impulse control disorder (4) Schizoaffective disorder, chronic condition with acute exacerbation (5) Personality disorder in adult LI CABRERA MD Feb 12, 2020 07:31
--- NOTE | 2020-02-12 07:58 | PDOC ---
Exam Note: Norris Note: This is a late entry for 02/09/2020. Currently, the unit is shutdown for any admissions and discharges as directed by the Centers for Disease Control (CDC) and the [facility] ([facility]) because of Coronavirus (COVID-19) exposure on the unit. S/O: This note covers elements not covered in my initial note. The patient was reviewed with nursing staff, reviewed the chart and TeleHealth Services provided for this date for the patient. Discussed with EVELIO Andrew. She slept 7-3/4 hours. Previous night she was talking about wanting to go to the hospital because she had broken her knee. She appears more confused in the evening. ROS: Ambulation impaired. Gait is unsteady. No CV, , Pulmonary, Eye system symptoms on review. MSE: Oriented to herself, and situation. Speech has some latency, coherent. Abstraction fair. Computation impaired. Language function intact. Mood and affect withdrawn, less paranoid. No suicidal or homicidal ideation. Labs: Reviewed. Imp: Schizoaffective disorder bipolar type, mixed with psychotic features in partial remission. Mild cognitive impairment. Plan: No change from my initial note. Assessment: Vital Signs/I&O: Vital Signs Date Time Temp Pulse Resp B/P (MAP) Pulse Ox O2 Delivery O2 Flow Rate FiO2 02/12/20 06:03 98.2 83 18 105/65 (78) 90 02/09/20 16:33 Room Air I & O 02/11/20 02/11/20 02/12/20 15:00 23:00 07:00 Intake Total 600 ml 340 ml Balance 600 ml 340 ml Current Medications: Meds: Current Medications Medications (Trade) Dose Ordered Sig/Liv Route PRN Reason Start Time Stop Time Status Last Admin Dose Admin Clozapine (Clozaril) 100 mg QHS PO 02/11/20 21:00 02/11/20 19:56 Divalproex Sodium (Depakote Er) 500 mg QHS PO 02/11/20 21:00 02/11/20 20:00 I have reviewed the current psychotropics carefully including drug interactions. Risk benefit ratio favors no change other than as noted in my dictated progress note. Diagnosis: Problems: (1) Bipolar disorder, curr episode mixed, severe, with psychotic features (2) Anxiety disorder (3) Impulse control disorder (4) Schizoaffective disorder, chronic condition with acute exacerbation (5) Personality disorder in adult LI CABRERA MD Feb 12, 2020 07:58
--- NOTE | 2020-02-12 08:26 | PDOC ---
Exam Note: Norris Note: This is a late entry for 02/10/2020. Currently, the unit is shutdown for any admissions and discharges as directed by the Centers for Disease Control (CDC) and the [facility] ([facility]) because of Coronavirus (COVID-19) exposure on the unit. S/O: This note covers elements not covered in my initial note. The patient was reviewed with nursing staff, reviewed the chart and TeleHealth Services provided for this date for the patient. Discussed with EVELIO Andrew. ROS: Ambulation impaired. Gait is unsteady. No CV, , Pulmonary, Eye system symptoms on review. MSE: Oriented to herself, and situation. Speech is coherent. Abstraction fair. Computation impaired. Language function intact. Mood and affect withdrawn, less paranoid. No suicidal or homicidal ideation. Labs: Reviewed. Imp: Schizoaffective disorder bipolar type, mixed with psychotic features in partial remission. Mild cognitive impairment. Plan: No change from my initial note. Assessment: Vital Signs/I&O: Vital Signs Date Time Temp Pulse Resp B/P (MAP) Pulse Ox O2 Delivery O2 Flow Rate FiO2 02/12/20 06:03 98.2 83 18 105/65 (78) 90 02/09/20 16:33 Room Air I & O 02/11/20 02/11/20 02/12/20 15:00 23:00 07:00 Intake Total 600 ml 340 ml Balance 600 ml 340 ml Current Medications: Meds: Current Medications Medications (Trade) Dose Ordered Sig/Liv Route PRN Reason Start Time Stop Time Status Last Admin Dose Admin Clozapine (Clozaril) 100 mg QHS PO 02/11/20 21:00 02/11/20 19:56 Divalproex Sodium (Depakote Er) 500 mg QHS PO 02/11/20 21:00 02/11/20 20:00 I have reviewed the current psychotropics carefully including drug interactions. Risk benefit ratio favors no change other than as noted in my dictated progress note. Diagnosis: Problems: (1) Bipolar disorder, curr episode mixed, severe, with psychotic features (2) Anxiety disorder (3) Impulse control disorder (4) Schizoaffective disorder, chronic condition with acute exacerbation (5) Personality disorder in adult LI CABRERA MD Feb 12, 2020 08:26
--- NOTE | 2020-02-12 08:55 | PDOC ---
Exam Note: Norris Note: This is a late entry for 02/11/2020. Currently, the unit is shutdown for any admissions and discharges as directed by the Centers for Disease Control (CDC) and the [facility] ([facility]) because of Coronavirus (COVID-19) exposure on the unit. S/O: This note covers elements not covered in my initial note. The patient was reviewed with nursing staff, reviewed the chart and TeleHealth Services provided for this date for the patient. She was seen on a video-conferencing call coordinated with Tanner FRASER, nursing staff on the unit whose appropriately protected with personal protective equipment and mask on the unit. The patient remains somewhat withdrawn. At times talks about seeing Maira. Slept 8-1/2 hours and discussed with EVELIO Swartz. She stated that previous evening babies were being cut out of the stomach and that she could communicate with her via telepathy. Valproic acid level is subtherapeutic at 30. We will increase the Depakote ER from 1250 mg h.s. to 1500 mg h.s. Check CBC, CMP, valproic acid level in 3 days. Absolute neutrophil count is within normal limits and we will increase the Clozaril from 75 mg h.s. to 100 mg h.s. ROS: Positive for some tiredness. No CV, , Pulmonary, Eye system symptoms on review. MSE: Oriented to herself, and situation. Speech is coherent. Abstraction fair. Computation impaired. Language function intact. Mood and affect withdrawn, less paranoid. No suicidal or homicidal ideation. Labs: Reviewed. Imp: Schizoaffective disorder bipolar type, mixed with psychotic features in partial remission. Mild cognitive impairment. Plan: No change from my initial note. Assessment: Vital Signs/I&O: Vital Signs Date Time Temp Pulse Resp B/P (MAP) Pulse Ox O2 Delivery O2 Flow Rate FiO2 02/12/20 06:03 98.2 83 18 105/65 (78) 90 02/09/20 16:33 Room Air I & O 02/11/20 02/11/20 02/12/20 14:59 22:59 06:59 Intake Total 600 ml 340 ml Balance 600 ml 340 ml Current Medications: Meds: Current Medications Medications (Trade) Dose Ordered Sig/Liv Route PRN Reason Start Time Stop Time Status Last Admin Dose Admin Clozapine (Clozaril) 100 mg QHS PO 02/11/20 21:00 02/11/20 19:56 Divalproex Sodium (Depakote Er) 500 mg QHS PO 02/11/20 21:00 02/11/20 20:00 I have reviewed the current psychotropics carefully including drug interactions. Risk benefit ratio favors no change other than as noted in my dictated progress note. Diagnosis: Problems: (1) Bipolar disorder, curr episode mixed, severe, with psychotic features (2) Anxiety disorder (3) Impulse control disorder (4) Schizoaffective disorder, chronic condition with acute exacerbation (5) Personality disorder in adult LI CABRERA MD Feb 12, 2020 08:55
[2020-02-12] MEDS: FLUoxetine HCL 20 MG CAPSULE PO SCH (09:25)
[2020-02-12] MEDS: MIDODRINE 5 MG TABLET PO SCH ×2 (09:25→17:30)
[2020-02-12] MEDS: THIAMINE 100 MG TABLET. PO SCH (09:25)
[2020-02-12] MEDS: busPIRone 5 MG TABLET. PO SCH ×2 (09:25→17:30)
[2020-02-12] MEDS: CETIRIZINE HCL 10 MG TABLET PO SCH (09:25)
[2020-02-12] MEDS: ASPIRIN ENTERIC COATED 81 MG TABLET.DR. PO SCH (09:25)
[2020-02-12] MEDS: buPROPion XL 150 MG TAB.ER.24H PO SCH (09:25)
[2020-02-12] MEDS: MULTIVITAMIN with MINERAL TABLET. PO SCH (09:25)
[2020-02-12] MEDS: CHOLECALCIFEROL (VITAMIN D3) 1,000 UNIT TABLET PO SCH (09:25)
[2020-02-12 16:23] VITALS: BP 101/60
[2020-02-12] MEDS: cloZAPine 100 MG TABLET PO SCH (20:53)
[2020-02-12] MEDS: DIVALPROEX ER 500 MG TAB.ER.24H PO SCH (20:53)
--- NOTE | 2020-02-12 23:18 | PDOC ---
Exam Note: Norris Note: S/O: This note covers elements not covered in my initial note. The patient was reviewed with nursing staff, reviewed the chart. Discussed with EVELIO Swartz. Slept 8-1/4 hours. Previous night she was talking to herself. No hallucinations noted. I did see her on the video-teleconferencing call in her room. She was lying in bed, fairly animated, verbal. ROS: No CV, , Pulmonary, Eye system symptoms on review. MSE: Oriented to herself and situation. Speech has some latency, coherent. Abstraction fair. Computation impaired. Language function intact. Mood and affect is improved, less psychotic. Labs: Reviewed. Imp: Unchanged from initial note. Plan: No change from my initial note. Assessment: Vital Signs/I&O: Vital Signs Date Time Temp Pulse Resp B/P (MAP) Pulse Ox O2 Delivery O2 Flow Rate FiO2 02/12/20 17:30 87 101/60 02/12/20 16:23 97.8 20 91 Room Air I & O 02/11/20 02/11/20 02/12/20 15:00 23:00 07:00 Intake Total 600 ml 340 ml Balance 600 ml 340 ml Current Medications: Meds: Current Medications Medications (Trade) Dose Ordered Sig/Liv Route PRN Reason Start Time Stop Time Status Last Admin Dose Admin Divalproex Sodium (Depakote Er) 1,500 mg QHS PO 02/12/20 21:00 02/12/20 20:53 I have reviewed the current psychotropics carefully including drug interactions. Risk benefit ratio favors no change other than as noted in my dictated progress note. Diagnosis: Problems: (1) Bipolar disorder, curr episode mixed, severe, with psychotic features (2) Anxiety disorder (3) Impulse control disorder (4) Schizoaffective disorder, chronic condition with acute exacerbation (5) Personality disorder in adult LI CABRERA MD Feb 12, 2020 23:18
[2020-02-13 06:31] VITALS: BP 102/67
[2020-02-13] MEDS: buPROPion XL 150 MG TAB.ER.24H PO SCH (11:17)
[2020-02-13] MEDS: ASPIRIN ENTERIC COATED 81 MG TABLET.DR. PO SCH (11:17)
[2020-02-13] MEDS: THIAMINE 100 MG TABLET. PO SCH (11:18)
[2020-02-13] MEDS: CHOLECALCIFEROL (VITAMIN D3) 1,000 UNIT TABLET PO SCH (11:18)
[2020-02-13] MEDS: MULTIVITAMIN with MINERAL TABLET. PO SCH (11:18)
[2020-02-13] MEDS: FLUoxetine HCL 20 MG CAPSULE PO SCH (11:18)
[2020-02-13] MEDS: busPIRone 5 MG TABLET. PO SCH ×2 (11:19→16:56)
[2020-02-13] MEDS: MIDODRINE 5 MG TABLET PO SCH ×2 (11:19→16:56)
[2020-02-13] MEDS: CETIRIZINE HCL 10 MG TABLET PO SCH (11:19)
[2020-02-13 16:26] VITALS: BP 108/70
[2020-02-13] MEDS: DIVALPROEX ER 500 MG TAB.ER.24H PO SCH (21:22)
[2020-02-13] MEDS: cloZAPine 100 MG TABLET PO SCH (21:22)
--- NOTE | 2020-02-13 23:55 | PDOC ---
Exam Note: Norris Note: S/O: This note covers elements not covered in my initial note. Discussed the patient with nursing staff, reviewed the chart. In the morning, the patient had treatment team meeting with the entire team nursing staff, social service staff and myself and TeleHealth Services provided via audio-visual visit in the evening coordinated with Tanner FRASER. We reviewed the patients history, diagnoses, discharge plans. She is sleeping average 7 hours. Appetite is 75%. Denies any overt hallucinations. Met with her in her room in the evening. She was lying in bed. Accurately remembered what she had for dinner. ROS: Positive for tiredness. No CV, , Pulmonary, Eye system symptoms on review. MSE: Oriented to herself and situation. Speech coherent, has some latency. Abstraction fair. Computation impaired. Language function intact. Mood and affect improved. Labs: Reviewed. Imp: Unchanged from initial note. Plan: No change from my initial note. Assessment: Vital Signs/I&O: Vital Signs Date Time Temp Pulse Resp B/P (MAP) Pulse Ox O2 Delivery O2 Flow Rate FiO2 02/13/20 16:56 86 108/70 02/13/20 16:26 97.8 20 98 Room Air I & O 02/12/20 02/12/20 02/13/20 15:00 23:00 07:00 Intake Total 720 ml 240 ml Balance 720 ml 240 ml Current Medications: I have reviewed the current psychotropics carefully including drug interactions. Risk benefit ratio favors no change other than as noted in my dictated progress note. Diagnosis: Problems: (1) Bipolar disorder, curr episode mixed, severe, with psychotic features (2) Anxiety disorder (3) Impulse control disorder (4) Schizoaffective disorder, chronic condition with acute exacerbation (5) Personality disorder in adult IL CABRERA MD Feb 13, 2020 23:55
[2020-02-14 05:51] VITALS: BP 100/65
[2020-02-14 06:58] LABS: BASO % 0 % (0-3); EOS # 0.2 x10^3/uL (0.0-0.7); EOS % 3 % (0-3); HEMATOCRIT 40.1 % (36.0-47.0); LYMPH # 1.8 x10^3/uL (1.0-4.8); LYMPH % 21 % (24-48); MEAN CORPUSCULAR HEMOGLOBIN 30 pg (25-35); MEAN CORPUSCULAR HGB CONC 32 g/dL (31-37); MEAN CORPUSCULAR VOLUME 94 fL (79-100); MONO # 0.8 x10^3/uL (0.0-1.1); MONO % 9 % (0-9); NEUT # 5.5 x10^3uL (1.8-7.7); NEUT % 66 % (31-73); PLATELET COUNT 275 x10^3/uL (140-400); RED BLOOD COUNT 4.26 x10^6/uL (3.50-5.40); RED CELL DISTRIBUTION WIDTH 16.7 % (11.5-14.5); WHITE BLOOD COUNT 8.4 x10^3/uL (4.0-11.0)
[2020-02-14 07:12] LABS: ALBUMIN 2.8 g/dL (3.4-5.0); ALBUMIN/GLOBULIN RATIO 0.7 (1.0-1.7); ALK PHOS 53 U/L (46-116); ALT (SGPT) 21 U/L (14-59); ANION GAP 5 (6-14); AST (SGOT) 22 U/L (15-37); BLOOD UREA NITROGEN 14 mg/dL (7-20); BUN/CREATININE RATIO 23 (6-20); CALCIUM 8.8 mg/dL (8.5-10.1); CARBON DIOXIDE 29 mmol/L (21-32); CHLORIDE 108 mmol/L (98-107); CREATININE 0.6 mg/dL (0.6-1.0); GFR 99.1; GLUCOSE 77 mg/dL (70-99); POTASSIUM 4.1 mmol/L (3.5-5.1); SODIUM 142 mmol/L (136-145); TOTAL BILIRUBIN 0.2 mg/dL (0.2-1.0)
[2020-02-14 07:14] LABS: VAL ACID 80 mcg/mL (50-100)
[2020-02-14] MEDS: ASPIRIN ENTERIC COATED 81 MG TABLET.DR. PO SCH (09:12)
[2020-02-14] MEDS: CETIRIZINE HCL 10 MG TABLET PO SCH (09:12)
[2020-02-14] MEDS: MULTIVITAMIN with MINERAL TABLET. PO SCH (09:12)
[2020-02-14] MEDS: buPROPion XL 150 MG TAB.ER.24H PO SCH (09:12)
[2020-02-14] MEDS: FLUoxetine HCL 20 MG CAPSULE PO SCH (09:12)
[2020-02-14] MEDS: CHOLECALCIFEROL (VITAMIN D3) 1,000 UNIT TABLET PO SCH (09:12)
[2020-02-14] MEDS: busPIRone 5 MG TABLET. PO SCH ×2 (09:12→17:05)
[2020-02-14] MEDS: MIDODRINE 5 MG TABLET PO SCH ×2 (09:13→17:05)
[2020-02-14] MEDS: THIAMINE 100 MG TABLET. PO SCH (09:13)
[2020-02-14 15:58] VITALS: BP 103/74
[2020-02-14] MEDS: cloZAPine 100 MG TABLET PO SCH (20:05)
[2020-02-14] MEDS: DIVALPROEX ER 500 MG TAB.ER.24H PO SCH (20:06)
[2020-02-15 06:17] VITALS: BP 94/60
[2020-02-15] MEDS: FLUoxetine HCL 20 MG CAPSULE PO SCH (08:31)
[2020-02-15] MEDS: CETIRIZINE HCL 10 MG TABLET PO SCH (08:31)
[2020-02-15] MEDS: MULTIVITAMIN with MINERAL TABLET. PO SCH (08:31)
[2020-02-15] MEDS: buPROPion XL 150 MG TAB.ER.24H PO SCH (08:32)
[2020-02-15] MEDS: MIDODRINE 5 MG TABLET PO SCH ×2 (08:32→17:18)
[2020-02-15] MEDS: busPIRone 5 MG TABLET. PO SCH ×2 (08:32→17:18)
[2020-02-15] MEDS: THIAMINE 100 MG TABLET. PO SCH (08:32)
[2020-02-15] MEDS: ASPIRIN ENTERIC COATED 81 MG TABLET.DR. PO SCH (08:32)
[2020-02-15] MEDS: CHOLECALCIFEROL (VITAMIN D3) 1,000 UNIT TABLET PO SCH (08:32)
[2020-02-15 16:06] VITALS: BP 106/73
[2020-02-15] MEDS: cloZAPine 100 MG TABLET PO SCH (19:46)
[2020-02-15] MEDS: DIVALPROEX ER 500 MG TAB.ER.24H PO SCH (19:46)
[2020-02-16 05:49] VITALS: BP 90/65
--- NOTE | 2020-02-16 08:05 | PDOC ---
Exam Note: Norris Note: S/O: This note is a late entry for DOS 02/14/2020 covers elements not covered in my initial note. Discussed the patient with nursing staff, reviewed the chart. Discussed with Lorrie FRASER. I met with the patient in the evening via audio-visual with Tanner FRASER. Sleep and appetite fair. Valproic acid level is 80. She denies seeing Maira or talking to Maira which is an improvement. ROS: No CV, , Pulmonary, Eye system symptoms on review. MSE: Oriented to herself and situation. Speech has some latency, coherent. Abstraction fair. Computation impaired. Language function intact. Mood and affect improved. Labs: Reviewed. Imp: Unchanged from initial note. Plan: No change from my initial note. Assessment: Vital Signs/I&O: Vital Signs Date Time Temp Pulse Resp B/P (MAP) Pulse Ox O2 Delivery O2 Flow Rate FiO2 02/16/20 05:49 98.0 78 18 90/65 (73) 91 Room Air I & O 02/15/20 02/15/20 02/16/20 15:00 23:00 07:00 Intake Total 720 ml Balance 720 ml Current Medications: I have reviewed the current psychotropics carefully including drug interactions. Risk benefit ratio favors no change other than as noted in my dictated progress note. Diagnosis: Problems: (1) Bipolar disorder, curr episode mixed, severe, with psychotic features (2) Anxiety disorder (3) Impulse control disorder (4) Schizoaffective disorder, chronic condition with acute exacerbation (5) Personality disorder in adult RICKLI MD Feb 16, 2020 08:05
--- NOTE | 2020-02-16 08:31 | PDOC ---
Exam Note: Norris Note: S/O: This note is a late entry for DOS 02/15/2020 covers elements not covered in my initial note. Discussed the patient with nursing staff, reviewed the chart. Discussed with Sudha FRASER. Met with the patient via audio-visual visit in the evening coordinated with Rayna FRASER. Patient has been less delusional, met with her in her room in the evening. ROS: No CV, , Pulmonary, Eye system symptoms on review. MSE: Oriented reasonably. Speech coherent, has some latency. Abstraction fair. Computation impaired. Language function intact. Attention span is short. Mood and affect somewhat withdrawn. Labs: Reviewed. Imp: Unchanged from initial note. Plan: No change from initial note. Assessment: Vital Signs/I&O: Vital Signs Date Time Temp Pulse Resp B/P (MAP) Pulse Ox O2 Delivery O2 Flow Rate FiO2 02/16/20 05:49 98.0 78 18 90/65 (73) 91 Room Air I & O 02/15/20 02/15/20 02/16/20 15:00 23:00 07:00 Intake Total 720 ml Balance 720 ml Current Medications: I have reviewed the current psychotropics carefully including drug interactions. Risk benefit ratio favors no change other than as noted in my dictated progress note. Diagnosis: Problems: (1) Bipolar disorder, curr episode mixed, severe, with psychotic features (2) Anxiety disorder (3) Impulse control disorder (4) Schizoaffective disorder, chronic condition with acute exacerbation (5) Personality disorder in adult LI CABRERA MD Feb 16, 2020 08:30
[2020-02-16] MEDS: CETIRIZINE HCL 10 MG TABLET PO SCH (09:28)
[2020-02-16] MEDS: MULTIVITAMIN with MINERAL TABLET. PO SCH (09:30)
[2020-02-16] MEDS: FLUoxetine HCL 20 MG CAPSULE PO SCH (09:30)
[2020-02-16] MEDS: CHOLECALCIFEROL (VITAMIN D3) 1,000 UNIT TABLET PO SCH (09:31)
[2020-02-16] MEDS: busPIRone 5 MG TABLET. PO SCH ×2 (09:31→16:11)
[2020-02-16] MEDS: THIAMINE 100 MG TABLET. PO SCH (09:31)
[2020-02-16] MEDS: buPROPion XL 150 MG TAB.ER.24H PO SCH (09:31)
[2020-02-16] MEDS: ASPIRIN ENTERIC COATED 81 MG TABLET.DR. PO SCH (09:31)
[2020-02-16] MEDS: MIDODRINE 5 MG TABLET PO SCH ×2 (09:36→16:12)
[2020-02-16 16:10] VITALS: BP 101/68
[2020-02-16] MEDS: DIVALPROEX ER 500 MG TAB.ER.24H PO SCH (20:05)
[2020-02-16] MEDS: cloZAPine 100 MG TABLET PO SCH (20:05)
--- NOTE | 2020-02-16 22:49 | PDOC ---
Exam Note: Norris Note: S/O: This note covers elements not covered in my initial note. The patient was seen on TeleHealth rounds evening of 02/16/2020 by Maddie FRASER. Discussed the patient with nursing staff, reviewed the chart. Nursing report was with Nicole FRASER. She slept 8 hours, has been less delusional. ROS: No CV, , Pulmonary, Eye system symptoms on review. MSE: Oriented reasonably. Speech coherent. Abstraction fair. Computation impaired. Language function intact. Attention span is short. Mood and affect. No clear psychotic symptoms noted and she has not been talking about Maira. Questionable hallucination she had in the past. Labs: Reviewed. Imp: Schizoaffective disorder bipolar type, mixed with psychotic features in partial remission. Mild cognitive impairment. Plan: No change from her current psychotropics as of now. Assessment: Vital Signs/I&O: Vital Signs Date Time Temp Pulse Resp B/P (MAP) Pulse Ox O2 Delivery O2 Flow Rate FiO2 02/16/20 16:12 87 101/68 02/16/20 16:10 98.1 16 93 Room Air I & O 02/15/20 02/15/20 02/16/20 15:00 23:00 07:00 Intake Total 720 ml Balance 720 ml Current Medications: I have reviewed the current psychotropics carefully including drug interactions. Risk benefit ratio favors no change other than as noted in my dictated progress note. Diagnosis: Problems: (1) Bipolar disorder, curr episode mixed, severe, with psychotic features (2) Anxiety disorder (3) Impulse control disorder (4) Schizoaffective disorder, chronic condition with acute exacerbation (5) Personality disorder in adult LI CABRERA MD Feb 16, 2020 22:49
[2020-02-17 05:59] VITALS: BP 99/64
[2020-02-17] MEDS: FLUoxetine HCL 20 MG CAPSULE PO SCH (08:16)
[2020-02-17] MEDS: buPROPion XL 150 MG TAB.ER.24H PO SCH (08:16)
[2020-02-17] MEDS: CHOLECALCIFEROL (VITAMIN D3) 1,000 UNIT TABLET PO SCH (08:16)
[2020-02-17] MEDS: busPIRone 5 MG TABLET. PO SCH ×2 (08:16→16:57)
[2020-02-17] MEDS: CETIRIZINE HCL 10 MG TABLET PO SCH (08:17)
[2020-02-17] MEDS: ASPIRIN ENTERIC COATED 81 MG TABLET.DR. PO SCH (08:17)
[2020-02-17] MEDS: THIAMINE 100 MG TABLET. PO SCH (08:17)
[2020-02-17] MEDS: MIDODRINE 5 MG TABLET PO SCH ×2 (08:17→16:57)
[2020-02-17] MEDS: MULTIVITAMIN with MINERAL TABLET. PO SCH (08:17)
[2020-02-17 16:03] VITALS: BP 129/80
[2020-02-17] MEDS: cloZAPine 25 MG TABLET PO SCH (19:51)
[2020-02-17] MEDS: DIVALPROEX ER 500 MG TAB.ER.24H PO SCH (19:51)
[2020-02-17] MEDS: cloZAPine 100 MG TABLET PO SCH (19:51)
--- NOTE | 2020-02-17 22:54 | PDOC ---
Exam Note: Norris Note: S/O: This note covers elements not covered in my initial note. The patient was seen on TeleHealth rounds in the evening by Maddie FRASER. Discussed the patient with nursing staff, reviewed the chart. Nursing report was with Sheridan FRASER. She slept 6 hours. She has been pleasant, withdrawn, spends much time in her room. She has not been talking about Maira or other hallucinations or delusions. ROS: Ambulation impaired. Complains of some tiredness. No CV, , Pulmonary, Eye system symptoms on review. MSE: Oriented to herself and situation. Speech has some latency, coherent. Often response is monosyllabic. Abstraction fair. Computation impaired. Language function intact. Attention span is short. Mood and affect somewhat withdrawn. Labs: Reviewed. Absolute neutrophil count is 5544. Imp: Schizoaffective disorder bipolar type, mixed with psychotic features in partial remission. Mild cognitive impairment. Plan: Since the absolute neutrophil count is adequate, we will increase Clozaril from 100 mg h.s. to 125 mg h.s. and stop the Invega Sustenna that she gets every month since she is compliant with her psychotropics and Clozaril is at a reasonable dosage. Maintain Wellbutrin, Depakote along with BuSpar, trazodone for now. Assessment: Vital Signs/I&O: Vital Signs Date Time Temp Pulse Resp B/P (MAP) Pulse Ox O2 Delivery O2 Flow Rate FiO2 02/17/20 16:57 94 129/80 02/17/20 16:03 97.7 20 92 Room Air I & O 02/16/20 02/16/20 02/17/20 14:59 22:59 06:59 Intake Total 600 ml 300 ml Balance 600 ml 300 ml Current Medications: Meds: Current Medications Medications (Trade) Dose Ordered Sig/Liv Route PRN Reason Start Time Stop Time Status Last Admin Dose Admin Clozapine (Clozaril) 100 mg QHS PO 02/17/20 21:00 02/17/20 19:51 Clozapine (Clozaril) 25 mg QHS PO 02/17/20 21:00 02/17/20 19:51 I have reviewed the current psychotropics carefully including drug interactions. Risk benefit ratio favors no change other than as noted in my dictated progress note. Diagnosis: Problems: (1) Bipolar disorder, curr episode mixed, severe, with psychotic features (2) Anxiety disorder (3) Impulse control disorder (4) Schizoaffective disorder, chronic condition with acute exacerbation (5) Personality disorder in adult LI CABRERA MD Feb 17, 2020 22:54
[2020-02-18 06:15] VITALS: BP 111/70
[2020-02-18] MEDS: ASPIRIN ENTERIC COATED 81 MG TABLET.DR. PO SCH (08:24)
[2020-02-18] MEDS: CETIRIZINE HCL 10 MG TABLET PO SCH (08:25)
[2020-02-18] MEDS: CHOLECALCIFEROL (VITAMIN D3) 1,000 UNIT TABLET PO SCH (08:25)
[2020-02-18] MEDS: THIAMINE 100 MG TABLET. PO SCH (08:25)
[2020-02-18] MEDS: FLUoxetine HCL 20 MG CAPSULE PO SCH (08:25)
[2020-02-18] MEDS: MIDODRINE 5 MG TABLET PO SCH ×2 (08:25→17:19)
[2020-02-18] MEDS: busPIRone 5 MG TABLET. PO SCH ×2 (08:25→17:19)
[2020-02-18] MEDS: buPROPion XL 150 MG TAB.ER.24H PO SCH (08:26)
[2020-02-18] MEDS: MULTIVITAMIN with MINERAL TABLET. PO SCH (08:26)
[2020-02-18 15:32] VITALS: BP 104/71
[2020-02-18] MEDS: cloZAPine 100 MG TABLET PO SCH (19:45)
[2020-02-18] MEDS: cloZAPine 25 MG TABLET PO SCH (19:45)
[2020-02-18] MEDS: DIVALPROEX ER 500 MG TAB.ER.24H PO SCH (19:45)
--- NOTE | 2020-02-18 21:58 | PDOC ---
Exam Note: Norris Note: Please also refer to the separate dictated note~for this date of service dictated separately. Discussed the patient with Nursing staff reviewed the chart.~Reviewed interim history and current functioning. Reviewed vital signs,~Labs/ Radiology~and current medications noted below. Continue current treatment with the changes noted in the dictated addendum note Assessment: Vital Signs/I&O: Vital Signs Date Time Temp Pulse Resp B/P (MAP) Pulse Ox O2 Delivery O2 Flow Rate FiO2 02/18/20 17:19 88 104/71 02/18/20 15:32 97.7 16 92 02/17/20 16:03 Room Air I & O 02/17/20 02/17/20 02/18/20 15:00 23:00 07:00 Intake Total 720 ml 600 ml Balance 720 ml 600 ml Current Medications: I have reviewed the current psychotropics carefully including drug interactions. Risk benefit ratio favors no change other than as noted in my dictated progress note. Diagnosis: Problems: (1) Bipolar disorder, curr episode mixed, severe, with psychotic features (2) Anxiety disorder (3) Impulse control disorder (4) Schizoaffective disorder, chronic condition with acute exacerbation (5) Personality disorder in adult LI CABRERA MD Feb 18, 2020 21:58
[2020-02-18 23:27] VITALS: BP 117/74
[2020-02-19 06:21] VITALS: BP 101/68
[2020-02-19] MEDS: CETIRIZINE HCL 10 MG TABLET PO SCH (08:29)
[2020-02-19] MEDS: buPROPion XL 150 MG TAB.ER.24H PO SCH (08:29)
[2020-02-19] MEDS: busPIRone 5 MG TABLET. PO SCH ×2 (08:30→17:23)
[2020-02-19] MEDS: CHOLECALCIFEROL (VITAMIN D3) 1,000 UNIT TABLET PO SCH (08:30)
[2020-02-19] MEDS: MIDODRINE 5 MG TABLET PO SCH ×2 (08:30→17:23)
[2020-02-19] MEDS: FLUoxetine HCL 20 MG CAPSULE PO SCH (08:30)
[2020-02-19] MEDS: THIAMINE 100 MG TABLET. PO SCH (08:30)
[2020-02-19] MEDS: ASPIRIN ENTERIC COATED 81 MG TABLET.DR. PO SCH (08:30)
[2020-02-19] MEDS: MULTIVITAMIN with MINERAL TABLET. PO SCH (08:30)
--- NOTE | 2020-02-19 10:38 | PDOC ---
Exam Note: Norris Note: S/O: This note is a late entry for DOS 02/18/2020 covers elements not covered in my initial note. The patient was seen on TeleHealth rounds coordinated by Sheridan FRASER in the evening. Discussed the patient with nursing staff, reviewed the chart. Nursing report was with Sheridan FRASER in the morning. She slept 8 hours. ROS: Ambulation impaired. No CV, , Pulmonary, Eye system symptoms on review. MSE: Oriented to herself and situation. Speech has some latency, coherent. Often response is monosyllabic. Abstraction fair. Computation impaired. Language function intact. Attention span is short. Mood and affect somewhat withdrawn. Labs: Reviewed. Imp: Schizoaffective disorder bipolar type, mixed with psychotic features in partial remission. Mild cognitive impairment. Plan: Continue psychotropics unchanged. Assessment: Vital Signs/I&O: Vital Signs Date Time Temp Pulse Resp B/P (MAP) Pulse Ox O2 Delivery O2 Flow Rate FiO2 02/19/20 08:30 81 101/68 02/19/20 06:21 97.9 18 91 2.0 02/18/20 23:40 Nasal Cannula I & O 02/18/20 02/18/20 02/19/20 15:00 23:00 07:00 Intake Total 600 ml 460 ml Balance 600 ml 460 ml Current Medications: I have reviewed the current psychotropics carefully including drug interactions. Risk benefit ratio favors no change other than as noted in my dictated progress note. Diagnosis: Problems: (1) Bipolar disorder, curr episode mixed, severe, with psychotic features (2) Anxiety disorder (3) Impulse control disorder (4) Schizoaffective disorder, chronic condition with acute exacerbation (5) Personality disorder in adult LI CABRERA MD Feb 19, 2020 10:38
[2020-02-19 15:37] VITALS: BP 115/76
[2020-02-19] MEDS: DIVALPROEX ER 500 MG TAB.ER.24H PO SCH (20:01)
[2020-02-19] MEDS: cloZAPine 100 MG TABLET PO SCH (20:01)
[2020-02-19] MEDS: cloZAPine 25 MG TABLET PO SCH (20:01)
--- NOTE | 2020-02-19 21:56 | PDOC ---
Exam Note: Norris Note: Please also refer to the separate dictated note~for this date of service dictated separately.~Patient seen individually. Discussed the patient with Nursing staff reviewed the chart.~Reviewed interim history and current functioning. Reviewed vital signs,~Labs/ Radiology~and current medications noted below. Continue current treatment with the changes noted in the dictated addendum note Assessment: Vital Signs/I&O: Vital Signs Date Time Temp Pulse Resp B/P (MAP) Pulse Ox O2 Delivery O2 Flow Rate FiO2 02/19/20 17:23 85 115/76 02/19/20 15:37 97.7 16 93 02/19/20 06:21 2.0 02/18/20 23:40 Nasal Cannula I & O 02/18/20 02/18/20 02/19/20 15:00 23:00 07:00 Intake Total 600 ml 460 ml Balance 600 ml 460 ml Current Medications: I have reviewed the current psychotropics carefully including drug interactions. Risk benefit ratio favors no change other than as noted in my dictated progress note. Diagnosis: Problems: (1) Bipolar disorder, curr episode mixed, severe, with psychotic features (2) Anxiety disorder (3) Impulse control disorder (4) Schizoaffective disorder, chronic condition with acute exacerbation (5) Personality disorder in adult LI CABRERA MD Feb 19, 2020 21:56
[2020-02-20 05:51] VITALS: BP 116/72
[2020-02-20] MEDS: ASPIRIN ENTERIC COATED 81 MG TABLET.DR. PO SCH (08:21)
[2020-02-20] MEDS: CHOLECALCIFEROL (VITAMIN D3) 1,000 UNIT TABLET PO SCH (08:21)
[2020-02-20] MEDS: MULTIVITAMIN with MINERAL TABLET. PO SCH (08:22)
[2020-02-20] MEDS: busPIRone 5 MG TABLET. PO SCH ×2 (08:22→16:24)
[2020-02-20] MEDS: FLUoxetine HCL 20 MG CAPSULE PO SCH (08:22)
[2020-02-20] MEDS: MIDODRINE 5 MG TABLET PO SCH ×2 (08:22→16:25)
[2020-02-20] MEDS: buPROPion XL 150 MG TAB.ER.24H PO SCH (08:22)
[2020-02-20] MEDS: THIAMINE 100 MG TABLET. PO SCH (08:22)
[2020-02-20] MEDS: CETIRIZINE HCL 10 MG TABLET PO SCH (08:23)
--- NOTE | 2020-02-20 10:36 | PDOC ---
Exam Note: Norris Note: S/O: This note is a late entry for DOS 02/19/2020 covers elements not covered in my initial note. We have had exposure of COVID-19 on the unit consequent to a staff member. The unit was on lockdown per [facility] ([facility])/Centers for Disease Control (CDC). Three patients had dev eloped fever and other symptoms for which they were screened for the COVID-19, two of which have come back negative, result for one is awaited and one other patient today is running a fever and we are doing a COVID-19 screen for this patient. Per regulations from the [facility], we are unable to admit or discharge any patients, still all of this is negative and the length of stay has affected not entirely by the clinical situation but by this directive additionally from the [facility]/CDC. The patient was seen on TeleHealth rounds coordinated by Marian FRASER in the evening. Discussed the patient with nursing staff, reviewed the chart. Nursing report was with Cheyenne FRASER in the morning. She slept 7 hours previous night. Overall per nursing report patient is doing better. She has been less paranoid, psychotic, not talking about Maira the hallucination she has experienced in the past. ROS: No CV, , Pulmonary, Eye system symptoms on review. MSE: Oriented to herself and situation. Speech has some latency, coherent. Abstraction fair. Computation impaired. Language function intact. Attention span is short. Mood and affect less withdrawn. Labs: Reviewed. Imp: Schizoaffective disorder bipolar type, mixed with psychotic features in partial remission. Mild cognitive impairment. Plan: No change from initial note. Assessment: Vital Signs/I&O: Vital Signs Date Time Temp Pulse Resp B/P (MAP) Pulse Ox O2 Delivery O2 Flow Rate FiO2 02/20/20 08:22 79 116/72 02/20/20 05:51 97.3 16 90 02/19/20 06:21 2.0 02/18/20 23:40 Nasal Cannula I & O 02/19/20 02/19/20 02/20/20 15:00 23:00 07:00 Intake Total 720 ml 720 ml Balance 720 ml 720 ml Current Medications: I have reviewed the current psychotropics carefully including drug interactions. Risk benefit ratio favors no change other than as noted in my dictated progress note. Diagnosis: Problems: (1) Bipolar disorder, curr episode mixed, severe, with psychotic features (2) Anxiety disorder (3) Impulse control disorder (4) Schizoaffective disorder, chronic condition with acute exacerbation (5) Personality disorder in adult LI CABRERA MD Feb 20, 2020 10:36
[2020-02-20 15:56] VITALS: BP 103/70
[2020-02-20] MEDS: DIVALPROEX ER 500 MG TAB.ER.24H PO SCH (19:47)
[2020-02-20] MEDS: cloZAPine 25 MG TABLET PO SCH (19:47)
[2020-02-20] MEDS: cloZAPine 100 MG TABLET PO SCH (19:47)
--- NOTE | 2020-02-20 22:01 | PDOC ---
Exam Note: Norris Note: Please also refer to the separate dictated note~for this date of service dictated separately.~Patient seen individually. Discussed the patient with Nursing staff reviewed the chart.~Reviewed interim history and current functioning. Reviewed vital signs,~Labs/ Radiology~and current medications noted below. Continue current treatment with the changes noted in the dictated addendum note Assessment: Vital Signs/I&O: Vital Signs Date Time Temp Pulse Resp B/P (MAP) Pulse Ox O2 Delivery O2 Flow Rate FiO2 02/20/20 18:30 97.7 02/20/20 16:25 85 103/70 02/20/20 15:56 18 97 02/19/20 06:21 2.0 02/18/20 23:40 Nasal Cannula I & O 02/19/20 02/19/20 02/20/20 15:00 23:00 07:00 Intake Total 720 ml 720 ml Balance 720 ml 720 ml Current Medications: I have reviewed the current psychotropics carefully including drug interactions. Risk benefit ratio favors no change other than as noted in my dictated progress note. Diagnosis: Problems: (1) Bipolar disorder, curr episode mixed, severe, with psychotic features (2) Anxiety disorder (3) Impulse control disorder (4) Schizoaffective disorder, chronic condition with acute exacerbation (5) Personality disorder in adult LI CABRERA MD Feb 20, 2020 22:01
[2020-02-21 06:10] VITALS: BP 115/67
[2020-02-21] MEDS: CETIRIZINE HCL 10 MG TABLET PO SCH (08:40)
[2020-02-21] MEDS: ASPIRIN ENTERIC COATED 81 MG TABLET.DR. PO SCH (08:40)
[2020-02-21] MEDS: FLUoxetine HCL 20 MG CAPSULE PO SCH (08:40)
[2020-02-21] MEDS: CHOLECALCIFEROL (VITAMIN D3) 1,000 UNIT TABLET PO SCH (08:40)
[2020-02-21] MEDS: busPIRone 5 MG TABLET. PO SCH ×2 (08:40→17:13)
[2020-02-21] MEDS: THIAMINE 100 MG TABLET. PO SCH (08:40)
[2020-02-21] MEDS: MIDODRINE 5 MG TABLET PO SCH ×2 (08:41→17:13)
[2020-02-21] MEDS: buPROPion XL 150 MG TAB.ER.24H PO SCH (08:42)
[2020-02-21] MEDS: MULTIVITAMIN with MINERAL TABLET. PO SCH (08:42)
--- NOTE | 2020-02-21 12:55 | PDOC ---
Exam Note: Norris Note: S/O: This note is a late entry for DOS 02/20/2020 covers elements not covered in my initial note. We are still waiting on the COVID-19 screen on two patients before the unit can be opened for admissions and discharges per the [facility] ([facility]Centers for Disease Control (CDC). Discussed the patient with nursing staff, reviewed the chart. Treatment team meeting was done in the morning with social service staff Santa in [facility], Marian FRASER, nursing staff and myself. The patient was seen on audio- visual rounds in the evening with Sheridan FRASER. Nursing staff noted that the patient talking to the door knob x1 but nothing on a consistent basis. She needed oxygen supplements previous night. Temperature 97.3 degrees F. ROS: No CV, , Pulmonary, Eye system symptoms on review. MSE: Oriented to herself and situation. Speech has some latency, coherent. Abstraction fair. Computation impaired. Language function intact. Attention span is short. Mood and affect less withdrawn. Labs: Reviewed. Imp: Schizoaffective disorder bipolar type, mixed with psychotic features in partial remission. Mild cognitive impairment. Plan: Continue psychotropics from initial note. We will discharge the patient once the unit is opened post COVID-19 screens coming back negative for all the patients we have ordered it for. Assessment: Vital Signs/I&O: Vital Signs Date Time Temp Pulse Resp B/P (MAP) Pulse Ox O2 Delivery O2 Flow Rate FiO2 02/21/20 08:41 79 115/67 02/21/20 06:10 98.0 16 92 02/19/20 06:21 2.0 02/18/20 23:40 Nasal Cannula I & O 02/20/20 02/20/20 02/21/20 15:00 23:00 07:00 Intake Total 600 ml 420 ml Balance 600 ml 420 ml Current Medications: I have reviewed the current psychotropics carefully including drug interactions. Risk benefit ratio favors no change other than as noted in my dictated progress note. Diagnosis: Problems: (1) Bipolar disorder, curr episode mixed, severe, with psychotic features (2) Anxiety disorder (3) Impulse control disorder (4) Schizoaffective disorder, chronic condition with acute exacerbation (5) Personality disorder in adult RICKLI MD Feb 21, 2020 12:55
[2020-02-21 16:18] VITALS: BP 108/73
[2020-02-21] MEDS: DIVALPROEX ER 500 MG TAB.ER.24H PO SCH (19:52)
[2020-02-21] MEDS: cloZAPine 25 MG TABLET PO SCH (19:52)
[2020-02-21] MEDS: cloZAPine 100 MG TABLET PO SCH (19:52)
[2020-02-21] MEDS: ACETAMINOPHEN 325 MG TABLET PO PRN (19:55)
--- NOTE | 2020-02-21 22:01 | PDOC ---
Exam Note: Norris Note: Please also refer to the separate dictated note~for this date of service dictated separately.~Patient seen individually. Discussed the patient with Nursing staff reviewed the chart.~Reviewed interim history and current functioning. Reviewed vital signs,~Labs/ Radiology~and current medications noted below. Continue current treatment with the changes noted in the dictated addendum note Assessment: Vital Signs/I&O: Vital Signs Date Time Temp Pulse Resp B/P (MAP) Pulse Ox O2 Delivery O2 Flow Rate FiO2 02/21/20 17:13 88 108/73 02/21/20 16:18 98.0 18 92 02/19/20 06:21 2.0 02/18/20 23:40 Nasal Cannula I & O 02/20/20 02/20/20 02/21/20 14:59 22:59 06:59 Intake Total 600 ml 420 ml Balance 600 ml 420 ml Current Medications: I have reviewed the current psychotropics carefully including drug interactions. Risk benefit ratio favors no change other than as noted in my dictated progress note. Diagnosis: Problems: (1) Bipolar disorder, curr episode mixed, severe, with psychotic features (2) Anxiety disorder (3) Impulse control disorder (4) Schizoaffective disorder, chronic condition with acute exacerbation (5) Personality disorder in adult LI CABRERA MD Feb 21, 2020 22:01
[2020-02-22 05:51] VITALS: BP 100/59
[2020-02-22] MEDS: CETIRIZINE HCL 10 MG TABLET PO SCH (08:37)
[2020-02-22] MEDS: busPIRone 5 MG TABLET. PO SCH ×2 (08:37→17:15)
[2020-02-22] MEDS: buPROPion XL 150 MG TAB.ER.24H PO SCH (08:37)
[2020-02-22] MEDS: ASPIRIN ENTERIC COATED 81 MG TABLET.DR. PO SCH (08:37)
[2020-02-22] MEDS: FLUoxetine HCL 20 MG CAPSULE PO SCH (08:37)
[2020-02-22] MEDS: CHOLECALCIFEROL (VITAMIN D3) 1,000 UNIT TABLET PO SCH (08:37)
[2020-02-22] MEDS: MIDODRINE 5 MG TABLET PO SCH ×2 (08:42→17:15)
[2020-02-22] MEDS: THIAMINE 100 MG TABLET. PO SCH (08:42)
[2020-02-22] MEDS: MULTIVITAMIN with MINERAL TABLET. PO SCH (08:42)
[2020-02-22 16:11] VITALS: BP 107/71
[2020-02-22] MEDS: cloZAPine 25 MG TABLET PO SCH (20:12)
[2020-02-22] MEDS: cloZAPine 100 MG TABLET PO SCH (20:12)
[2020-02-22] MEDS: DIVALPROEX ER 500 MG TAB.ER.24H PO SCH (20:13)
--- NOTE | 2020-02-22 21:48 | PDOC ---
Exam Note: Norris Note: S/O: This note is a late entry for DOS 02/21/2020 covers elements not covered in my initial note. Discussed the patient with nursing staff, reviewed the chart. The patient was seen on audio-visual rounds in the evening with Tanner RN and nursing report with Marian FRASRE. Previous night she did talk about commu nicating with Maira but none of that on 02/21/2020. I addressed this with her individually and she smiled and said that she accepted Maira communicating with her previous evening but not during the day on 02/21/2020. ROS: No CV, , Pulmonary, Eye system symptoms on review. MSE: Oriented to herself and situation. Speech has some latency, coherent. Abstraction fair. Computation impaired. Language function intact. Attention span is short. Mood and affect less withdrawn. Labs: Reviewed. Imp: Schizoaffective disorder bipolar type, mixed with psychotic features in partial remission. Mild cognitive impairment. Plan: Continue psychotropics from initial note. Assessment: Vital Signs/I&O: Vital Signs Date Time Temp Pulse Resp B/P (MAP) Pulse Ox O2 Delivery O2 Flow Rate FiO2 02/22/20 17:15 86 107/71 02/22/20 16:11 98.5 18 92 02/22/20 08:35 Room Air 02/19/20 06:21 2.0 I & O 02/21/20 02/21/20 02/22/20 15:00 23:00 07:00 Intake Total 840 ml 240 ml Balance 840 ml 240 ml Current Medications: I have reviewed the current psychotropics carefully including drug interactions. Risk benefit ratio favors no change other than as noted in my dictated progress note. Diagnosis: Problems: (1) Bipolar disorder, curr episode mixed, severe, with psychotic features (2) Anxiety disorder (3) Impulse control disorder (4) Schizoaffective disorder, chronic condition with acute exacerbation (5) Personality disorder in adult LI CABRERA MD Feb 22, 2020 21:48
--- NOTE | 2020-02-22 22:00 | PDOC ---
Exam Note: Norris Note: Please also refer to the separate dictated note~for this date of service dictated separately.~Patient seen individually. Discussed the patient with Nursing staff reviewed the chart.~Reviewed interim history and current functioning. Reviewed vital signs,~Labs/ Radiology~and current medications noted below. Continue current treatment with the changes noted in the dictated addendum note Assessment: Vital Signs/I&O: Vital Signs Date Time Temp Pulse Resp B/P (MAP) Pulse Ox O2 Delivery O2 Flow Rate FiO2 02/22/20 17:15 86 107/71 02/22/20 16:11 98.5 18 92 02/22/20 08:35 Room Air 02/19/20 06:21 2.0 I & O 02/21/20 02/21/20 02/22/20 14:59 22:59 06:59 Intake Total 840 ml 240 ml Balance 840 ml 240 ml Current Medications: I have reviewed the current psychotropics carefully including drug interactions. Risk benefit ratio favors no change other than as noted in my dictated progress note. Diagnosis: Problems: (1) Bipolar disorder, curr episode mixed, severe, with psychotic features (2) Anxiety disorder (3) Impulse control disorder (4) Schizoaffective disorder, chronic condition with acute exacerbation (5) Personality disorder in adult LI CABRERA MD Feb 22, 2020 22:00
[2020-02-23 06:05] VITALS: BP 92/56
[2020-02-23] MEDS: MULTIVITAMIN with MINERAL TABLET. PO SCH (08:30)
[2020-02-23] MEDS: buPROPion XL 150 MG TAB.ER.24H PO SCH (08:30)
[2020-02-23] MEDS: CETIRIZINE HCL 10 MG TABLET PO SCH (08:30)
[2020-02-23] MEDS: FLUoxetine HCL 20 MG CAPSULE PO SCH (08:30)
[2020-02-23] MEDS: MIDODRINE 5 MG TABLET PO SCH ×2 (08:30→17:12)
[2020-02-23] MEDS: busPIRone 5 MG TABLET. PO SCH ×2 (08:30→17:12)
[2020-02-23] MEDS: CHOLECALCIFEROL (VITAMIN D3) 1,000 UNIT TABLET PO SCH (08:30)
[2020-02-23] MEDS: ASPIRIN ENTERIC COATED 81 MG TABLET.DR. PO SCH (08:30)
[2020-02-23] MEDS: THIAMINE 100 MG TABLET. PO SCH (08:30)
[2020-02-23 16:02] VITALS: BP 104/56
[2020-02-23] MEDS: cloZAPine 100 MG TABLET PO SCH (20:15)
[2020-02-23] MEDS: cloZAPine 25 MG TABLET PO SCH (20:15)
[2020-02-23] MEDS: DIVALPROEX ER 500 MG TAB.ER.24H PO SCH (20:16)
[2020-02-24 06:19] VITALS: BP 118/71
[2020-02-24 06:22] LABS: BASO % 0 % (0-3); EOS # 0.2 x10^3/uL (0.0-0.7); EOS % 3 % (0-3); HEMATOCRIT 37.5 % (36.0-47.0); HEMOGLOBIN 12.1 g/dL (12.0-15.5); LYMPH # 1.8 x10^3/uL (1.0-4.8); LYMPH % 30 % (24-48); MEAN CORPUSCULAR HEMOGLOBIN 31 pg (25-35); MEAN CORPUSCULAR HGB CONC 32 g/dL (31-37); MEAN CORPUSCULAR VOLUME 95 fL (79-100); MONO # 0.8 x10^3/uL (0.0-1.1); MONO % 14 % (0-9); NEUT # 3.2 x10^3uL (1.8-7.7); NEUT % 54 % (31-73); PLATELET COUNT 272 x10^3/uL (140-400); RED BLOOD COUNT 3.96 x10^6/uL (3.50-5.40); RED CELL DISTRIBUTION WIDTH 17.4 % (11.5-14.5); WHITE BLOOD COUNT 5.9 x10^3/uL (4.0-11.0)
[2020-02-24 06:40] LABS: ALBUMIN 2.7 g/dL (3.4-5.0); ALBUMIN/GLOBULIN RATIO 0.6 (1.0-1.7); CALCIUM 8.5 mg/dL (8.5-10.1); CREATININE 0.5 mg/dL (0.6-1.0); GFR 122.3; MAGNESIUM 1.8 mg/dL (1.8-2.4); POTASSIUM 4.1 mmol/L (3.5-5.1); TOTAL BILIRUBIN 0.1 mg/dL (0.2-1.0)
[2020-02-24] MEDS: CETIRIZINE HCL 10 MG TABLET PO SCH (08:10)
[2020-02-24] MEDS: CHOLECALCIFEROL (VITAMIN D3) 1,000 UNIT TABLET PO SCH (08:10)
[2020-02-24] MEDS: buPROPion XL 150 MG TAB.ER.24H PO SCH (08:10)
[2020-02-24] MEDS: FLUoxetine HCL 20 MG CAPSULE PO SCH (08:10)
[2020-02-24] MEDS: ASPIRIN ENTERIC COATED 81 MG TABLET.DR. PO SCH (08:10)
[2020-02-24] MEDS: THIAMINE 100 MG TABLET. PO SCH (08:11)
[2020-02-24] MEDS: busPIRone 5 MG TABLET. PO SCH ×2 (08:11→16:54)
[2020-02-24] MEDS: MIDODRINE 5 MG TABLET PO SCH ×2 (08:11→16:54)
[2020-02-24] MEDS: MULTIVITAMIN with MINERAL TABLET. PO SCH (08:11)
--- NOTE | 2020-02-24 08:35 | PDOC ---
Exam Note: Norris Note: S/O: This note is a late entry for DOS 02/22/2020 covers elements not covered in my initial note. Discussed the patient with nursing staff, reviewed the chart. The patient was seen on audio-visual rounds in the evening with Tanner FRASER. Nursing report was with Maddie FRASER. Slept 8-1/2 hours previous night. ROS: No CV, , Pulmonary, Eye system symptoms on review. MSE: Oriented to herself and situation. Speech has some latency, coherent. Abstraction fair. Computation impaired. Language function intact. Attention span is short. Mood and affect less withdrawn. Labs: Reviewed. Imp: Schizoaffective disorder bipolar type, mixed with psychotic features in partial remission. Mild cognitive impairment. Plan: Continue psychotropics from initial note. Assessment: Vital Signs/I&O: Vital Signs Date Time Temp Pulse Resp B/P (MAP) Pulse Ox O2 Delivery O2 Flow Rate FiO2 02/24/20 08:11 95 118/71 02/24/20 06:19 98.2 16 95 2.0 02/22/20 08:35 Room Air I & O 02/23/20 02/23/20 02/24/20 15:00 23:00 07:00 Intake Total 840 ml 480 ml 120 ml Balance 840 ml 480 ml 120 ml Labs: Laboratory Tests Test 02/24/20 05:58 White Blood Count 5.9 x10^3/uL (4.0-11.0) Red Blood Count 3.96 x10^6/uL (3.50-5.40) Hemoglobin 12.1 g/dL (12.0-15.5) Hematocrit 37.5 % (36.0-47.0) Mean Corpuscular Volume 95 fL (79-100) Mean Corpuscular Hemoglobin 31 pg (25-35) Mean Corpuscular Hemoglobin Concent 32 g/dL (31-37) Red Cell Distribution Width 17.4 % (11.5-14.5) H Platelet Count 272 x10^3/uL (140-400) Neutrophils (%) (Auto) 54 % (31-73) Lymphocytes (%) (Auto) 30 % (24-48) Monocytes (%) (Auto) 14 % (0-9) H Eosinophils (%) (Auto) 3 % (0-3) Basophils (%) (Auto) 0 % (0-3) Neutrophils # (Auto) 3.2 x10^3uL (1.8-7.7) Lymphocytes # (Auto) 1.8 x10^3/uL (1.0-4.8) Monocytes # (Auto) 0.8 x10^3/uL (0.0-1.1) Eosinophils # (Auto) 0.2 x10^3/uL (0.0-0.7) Basophils # (Auto) 0.0 x10^3/uL (0.0-0.2) Sodium Level 143 mmol/L (136-145) Potassium Level 4.1 mmol/L (3.5-5.1) Chloride Level 107 mmol/L (98-107) Carbon Dioxide Level 30 mmol/L (21-32) Anion Gap 6 (6-14) Blood Urea Nitrogen 15 mg/dL (7-20) Creatinine 0.5 mg/dL (0.6-1.0) L Estimated GFR (Cockcroft-Gault) 122.3 BUN/Creatinine Ratio 30 (6-20) H Glucose Level 82 mg/dL (70-99) Calcium Level 8.5 mg/dL (8.5-10.1) Magnesium Level 1.8 mg/dL (1.8-2.4) Total Bilirubin 0.1 mg/dL (0.2-1.0) L Aspartate Amino Transferase (AST) 19 U/L (15-37) Alanine Aminotransferase (ALT) 20 U/L (14-59) Alkaline Phosphatase 65 U/L (46-116) Total Protein 7.0 g/dL (6.4-8.2) Albumin 2.7 g/dL (3.4-5.0) L Albumin/Globulin Ratio 0.6 (1.0-1.7) L Current Medications: I have reviewed the current psychotropics carefully including drug interactions. Risk benefit ratio favors no change other than as noted in my dictated progress note. Diagnosis: Problems: (1) Bipolar disorder, curr episode mixed, severe, with psychotic features (2) Anxiety disorder (3) Impulse control disorder (4) Schizoaffective disorder, chronic condition with acute exacerbation (5) Personality disorder in adult LI CABRERA MD Feb 24, 2020 08:35
--- NOTE | 2020-02-24 09:00 | PDOC ---
Exam Note: Norris Note: S/O: This note is a late entry for DOS 02/23/2020 covers elements not covered in my initial note. Discussed the patient with nursing staff, reviewed the chart. The patient was seen on audio-visual rounds in the evening with Rayna FRASER. Nursing report was with Negro FRASER. ROS: No CV, , Pulmonary, Eye system symptoms on review. MSE: Oriented to herself and situation. Speech has some latency, coherent. Abstraction fair. Computation impaired. Language function intact. Attention span is short. Mood and affect less withdrawn. Labs: Reviewed. Imp: Schizoaffective disorder bipolar type, mixed with psychotic features in partial remission. Mild cognitive impairment. Plan: Continue psychotropics from initial note. Assessment: Vital Signs/I&O: Vital Signs Date Time Temp Pulse Resp B/P (MAP) Pulse Ox O2 Delivery O2 Flow Rate FiO2 02/24/20 08:11 95 118/71 02/24/20 06:19 98.2 16 95 2.0 02/22/20 08:35 Room Air I & O 02/23/20 02/23/20 02/24/20 14:59 22:59 06:59 Intake Total 840 ml 480 ml 120 ml Balance 840 ml 480 ml 120 ml Labs: Laboratory Tests Test 02/24/20 05:58 White Blood Count 5.9 x10^3/uL (4.0-11.0) Red Blood Count 3.96 x10^6/uL (3.50-5.40) Hemoglobin 12.1 g/dL (12.0-15.5) Hematocrit 37.5 % (36.0-47.0) Mean Corpuscular Volume 95 fL (79-100) Mean Corpuscular Hemoglobin 31 pg (25-35) Mean Corpuscular Hemoglobin Concent 32 g/dL (31-37) Red Cell Distribution Width 17.4 % (11.5-14.5) H Platelet Count 272 x10^3/uL (140-400) Neutrophils (%) (Auto) 54 % (31-73) Lymphocytes (%) (Auto) 30 % (24-48) Monocytes (%) (Auto) 14 % (0-9) H Eosinophils (%) (Auto) 3 % (0-3) Basophils (%) (Auto) 0 % (0-3) Neutrophils # (Auto) 3.2 x10^3uL (1.8-7.7) Lymphocytes # (Auto) 1.8 x10^3/uL (1.0-4.8) Monocytes # (Auto) 0.8 x10^3/uL (0.0-1.1) Eosinophils # (Auto) 0.2 x10^3/uL (0.0-0.7) Basophils # (Auto) 0.0 x10^3/uL (0.0-0.2) Sodium Level 143 mmol/L (136-145) Potassium Level 4.1 mmol/L (3.5-5.1) Chloride Level 107 mmol/L (98-107) Carbon Dioxide Level 30 mmol/L (21-32) Anion Gap 6 (6-14) Blood Urea Nitrogen 15 mg/dL (7-20) Creatinine 0.5 mg/dL (0.6-1.0) L Estimated GFR (Cockcroft-Gault) 122.3 BUN/Creatinine Ratio 30 (6-20) H Glucose Level 82 mg/dL (70-99) Calcium Level 8.5 mg/dL (8.5-10.1) Magnesium Level 1.8 mg/dL (1.8-2.4) Total Bilirubin 0.1 mg/dL (0.2-1.0) L Aspartate Amino Transferase (AST) 19 U/L (15-37) Alanine Aminotransferase (ALT) 20 U/L (14-59) Alkaline Phosphatase 65 U/L (46-116) Total Protein 7.0 g/dL (6.4-8.2) Albumin 2.7 g/dL (3.4-5.0) L Albumin/Globulin Ratio 0.6 (1.0-1.7) L Current Medications: I have reviewed the current psychotropics carefully including drug interactions. Risk benefit ratio favors no change other than as noted in my dictated progress note. Diagnosis: Problems: (1) Bipolar disorder, curr episode mixed, severe, with psychotic features (2) Anxiety disorder (3) Impulse control disorder (4) Schizoaffective disorder, chronic condition with acute exacerbation (5) Personality disorder in adult LI CABRERA eRji PALAFOX Feb 24, 2020 09:00
[2020-02-24 15:39] VITALS: BP 100/61
[2020-02-24] MEDS: cloZAPine 25 MG TABLET PO SCH (20:21)
[2020-02-24] MEDS: cloZAPine 100 MG TABLET PO SCH (20:21)
[2020-02-24] MEDS: DIVALPROEX ER 500 MG TAB.ER.24H PO SCH (20:22)
--- NOTE | 2020-02-24 22:11 | PDOC ---
Exam Note: Norris Note: Please also refer to the separate dictated note~for this date of service dictated separately.~Patient seen individually. Discussed the patient with Nursing staff reviewed the chart.~Reviewed interim history and current functioning. Reviewed vital signs,~Labs/ Radiology~and current medications noted below. Continue current treatment with the changes noted in the dictated addendum note Assessment: Vital Signs/I&O: Vital Signs Date Time Temp Pulse Resp B/P (MAP) Pulse Ox O2 Delivery O2 Flow Rate FiO2 02/24/20 16:54 85 100/61 02/24/20 15:39 98.2 16 91 Room Air 02/24/20 06:19 2.0 I & O 02/23/20 02/23/20 02/24/20 15:00 23:00 07:00 Intake Total 840 ml 480 ml 120 ml Balance 840 ml 480 ml 120 ml Labs: Laboratory Tests Test 02/24/20 05:58 White Blood Count 5.9 x10^3/uL (4.0-11.0) Red Blood Count 3.96 x10^6/uL (3.50-5.40) Hemoglobin 12.1 g/dL (12.0-15.5) Hematocrit 37.5 % (36.0-47.0) Mean Corpuscular Volume 95 fL (79-100) Mean Corpuscular Hemoglobin 31 pg (25-35) Mean Corpuscular Hemoglobin Concent 32 g/dL (31-37) Red Cell Distribution Width 17.4 % (11.5-14.5) H Platelet Count 272 x10^3/uL (140-400) Neutrophils (%) (Auto) 54 % (31-73) Lymphocytes (%) (Auto) 30 % (24-48) Monocytes (%) (Auto) 14 % (0-9) H Eosinophils (%) (Auto) 3 % (0-3) Basophils (%) (Auto) 0 % (0-3) Neutrophils # (Auto) 3.2 x10^3uL (1.8-7.7) Lymphocytes # (Auto) 1.8 x10^3/uL (1.0-4.8) Monocytes # (Auto) 0.8 x10^3/uL (0.0-1.1) Eosinophils # (Auto) 0.2 x10^3/uL (0.0-0.7) Basophils # (Auto) 0.0 x10^3/uL (0.0-0.2) Sodium Level 143 mmol/L (136-145) Potassium Level 4.1 mmol/L (3.5-5.1) Chloride Level 107 mmol/L (98-107) Carbon Dioxide Level 30 mmol/L (21-32) Anion Gap 6 (6-14) Blood Urea Nitrogen 15 mg/dL (7-20) Creatinine 0.5 mg/dL (0.6-1.0) L Estimated GFR (Cockcroft-Gault) 122.3 BUN/Creatinine Ratio 30 (6-20) H Glucose Level 82 mg/dL (70-99) Calcium Level 8.5 mg/dL (8.5-10.1) Magnesium Level 1.8 mg/dL (1.8-2.4) Total Bilirubin 0.1 mg/dL (0.2-1.0) L Aspartate Amino Transferase (AST) 19 U/L (15-37) Alanine Aminotransferase (ALT) 20 U/L (14-59) Alkaline Phosphatase 65 U/L (46-116) Total Protein 7.0 g/dL (6.4-8.2) Albumin 2.7 g/dL (3.4-5.0) L Albumin/Globulin Ratio 0.6 (1.0-1.7) L Current Medications: Meds: Current Medications Medications (Trade) Dose Ordered Sig/Liv Route PRN Reason Start Time Stop Time Status Last Admin Dose Admin Clozapine (Clozaril) 50 mg QHS PO 02/24/20 21:00 02/24/20 20:21 I have reviewed the current psychotropics carefully including drug interactions. Risk benefit ratio favors no change other than as noted in my dictated progress note. Diagnosis: Problems: (1) Bipolar disorder, curr episode mixed, severe, with psychotic features (2) Anxiety disorder (3) Impulse control disorder (4) Schizoaffective disorder, chronic condition with acute exacerbation (5) Personality disorder in adult RICKLI MD Feb 24, 2020 22:10
[2020-02-25 06:18] VITALS: BP 110/73
[2020-02-25] MEDS: buPROPion XL 150 MG TAB.ER.24H PO SCH (08:22)
[2020-02-25] MEDS: MIDODRINE 5 MG TABLET PO SCH ×2 (08:23→16:43)
[2020-02-25] MEDS: CHOLECALCIFEROL (VITAMIN D3) 1,000 UNIT TABLET PO SCH (08:23)
[2020-02-25] MEDS: ASPIRIN ENTERIC COATED 81 MG TABLET.DR. PO SCH (08:23)
[2020-02-25] MEDS: THIAMINE 100 MG TABLET. PO SCH (08:23)
[2020-02-25] MEDS: busPIRone 5 MG TABLET. PO SCH ×2 (08:23→16:44)
[2020-02-25] MEDS: MULTIVITAMIN with MINERAL TABLET. PO SCH (08:23)
[2020-02-25] MEDS: FLUoxetine HCL 20 MG CAPSULE PO SCH (08:23)
[2020-02-25] MEDS: CETIRIZINE HCL 10 MG TABLET PO SCH (08:23)
[2020-02-25] MEDS: ACETAMINOPHEN 325 MG TABLET PO PRN (09:15)
[2020-02-25 15:42] VITALS: BP 99/63
[2020-02-25] MEDS: cloZAPine 25 MG TABLET PO SCH (20:17)
[2020-02-25] MEDS: cloZAPine 100 MG TABLET PO SCH (20:17)
[2020-02-25] MEDS: DIVALPROEX ER 500 MG TAB.ER.24H PO SCH (20:17)
--- NOTE | 2020-02-25 21:44 | PDOC ---
Exam Note: Norris Note: Please also refer to the separate dictated note~for this date of service dictated separately.~Patient seen individually. Discussed the patient with Nursing staff reviewed the chart.~Reviewed interim history and current functioning. Reviewed vital signs,~Labs/ Radiology~and current medications noted below. Continue current treatment with the changes noted in the dictated addendum note Assessment: Vital Signs/I&O: Vital Signs Date Time Temp Pulse Resp B/P (MAP) Pulse Ox O2 Delivery O2 Flow Rate FiO2 02/25/20 16:43 84 99/63 02/25/20 15:42 98.6 16 92 Room Air 02/25/20 06:18 2.0 I & O 02/24/20 02/24/20 02/25/20 15:00 23:00 07:00 Intake Total 600 ml 300 ml Balance 600 ml 300 ml Current Medications: I have reviewed the current psychotropics carefully including drug interactions. Risk benefit ratio favors no change other than as noted in my dictated progress note. Diagnosis: Problems: (1) Bipolar disorder, curr episode mixed, severe, with psychotic features (2) Anxiety disorder (3) Impulse control disorder (4) Schizoaffective disorder, chronic condition with acute exacerbation (5) Personality disorder in adult LI CABRERA MD Feb 25, 2020 21:44
[2020-02-26 06:18] VITALS: BP 96/51
--- NOTE | 2020-02-26 07:47 | PDOC ---
Exam Note: Norris Note: S/O: This note is a late entry for DOS 02/24/2020 covers elements not covered in my initial note. Discussed the patient with nursing staff, reviewed the chart. The patient was seen on audio-visual rounds in the evening with Akiko FRASER. Nursing report was with Sheridan FRASER. She moved her room to [facility] [place] since another patient is positive for COVID-19. Slept 6-3/4 hours. Nursing staff reported previous night she was playing [employer] and spending time in her room, somewhat isolative, done better during the day. Her absolute neutrophil count is 3186 and we will check for the pharmacy and if there is no contraindication we will increase Clozaril from 125 mg h.s. to 150 mg h.s. ROS: No CV, , Pulmonary, Eye system symptoms on review. MSE: Oriented to herself and situation. Speech has some latency, coherent. Abstraction fair. Computation impaired. Language function intact. Attention span is short. Mood and affect little paranoid but less so than before. No psychotic symptoms, suicidal or homicidal ideation. Labs: Reviewed. Imp: Schizoaffective disorder bipolar type, mixed with psychotic features in partial remission. Mild cognitive impairment. Plan: Continue psychotropics from initial note and as above. Assessment: Vital Signs/I&O: VS - Last 72 Hours, by Label Date Time Temp Pulse Resp B/P (MAP) Pulse Ox O2 Delivery O2 Flow Rate FiO2 02/26/20 06:18 97.6 79 16 96/51 (66) 94 02/25/20 16:43 84 99/63 02/25/20 15:42 98.6 84 16 99/63 (75) 92 Room Air 02/25/20 08:23 83 110/73 02/25/20 06:18 97.6 83 16 110/73 (85) 92 2.0 02/24/20 16:54 85 100/61 02/24/20 15:39 98.2 85 16 100/61 (74) 91 Room Air 02/24/20 08:11 95 118/71 02/24/20 06:19 98.2 95 16 118/71 (87) 95 2.0 02/23/20 17:12 89 104/56 02/23/20 16:02 98.2 89 20 104/56 (72) 93 4/5/20 08:30 85 92/56 Vital Signs Date Time Temp Pulse Resp B/P (MAP) Pulse Ox O2 Delivery O2 Flow Rate FiO2 02/26/20 06:18 97.6 79 16 96/51 (66) 94 02/25/20 15:42 Room Air 02/25/20 06:18 2.0 I & O 02/25/20 02/25/20 02/26/20 15:00 23:00 07:00 Intake Total 600 ml 420 ml Balance 600 ml 420 ml Current Medications: I have reviewed the current psychotropics carefully including drug interactions. Risk benefit ratio favors no change other than as noted in my dictated progress note. Diagnosis: Problems: (1) Bipolar disorder, curr episode mixed, severe, with psychotic features (2) Anxiety disorder (3) Impulse control disorder (4) Schizoaffective disorder, chronic condition with acute exacerbation (5) Personality disorder in adult LI CABRERA MD Feb 26, 2020 07:47
[2020-02-26] MEDS: MIDODRINE 5 MG TABLET PO SCH ×2 (08:00→17:19)
--- NOTE | 2020-02-26 08:08 | PDOC ---
Exam Note: Norris Note: S/O: This note is a late entry for DOS 02/25/2020 covers elements not covered in my initial note. Discussed the patient with nursing staff, reviewed the chart. The patient was seen on audio-visual rounds in the evening with Tanner FRAESR. Nursing report was with Akiko FRASER. She slept 9 hours. Patient denies noe betancur any conversations with Maira her hallucinations/delusions that she has experienced in the past. ROS: No CV, , Pulmonary, Eye system symptoms on review. MSE: Oriented to herself and situation. Speech has some latency, coherent. Abstraction fair. Computation impaired. Language function intact. Attention span is short. Mood and affect paranoid, anxious. No suicidal or homicidal ideation. Labs: Reviewed. Imp: Schizoaffective disorder bipolar type, mixed with psychotic features in partial remission. Mild cognitive impairment. Plan: Continue psychotropics from initial note. Assessment: Vital Signs/I&O: Vital Signs Date Time Temp Pulse Resp B/P (MAP) Pulse Ox O2 Delivery O2 Flow Rate FiO2 02/26/20 06:18 97.6 79 16 96/51 (66) 94 02/25/20 15:42 Room Air 02/25/20 06:18 2.0 I & O 02/25/20 02/25/20 02/26/20 15:00 23:00 07:00 Intake Total 600 ml 420 ml Balance 600 ml 420 ml Current Medications: I have reviewed the current psychotropics carefully including drug interactions. Risk benefit ratio favors no change other than as noted in my dictated progress note. Diagnosis: Problems: (1) Bipolar disorder, curr episode mixed, severe, with psychotic features (2) Anxiety disorder (3) Impulse control disorder (4) Schizoaffective disorder, chronic condition with acute exacerbation (5) Personality disorder in adult RICKLI MD Feb 26, 2020 08:08
[2020-02-26] MEDS: MULTIVITAMIN with MINERAL TABLET. PO SCH (08:10)
[2020-02-26] MEDS: FLUoxetine HCL 20 MG CAPSULE PO SCH (08:11)
[2020-02-26] MEDS: busPIRone 5 MG TABLET. PO SCH ×2 (08:11→17:19)
[2020-02-26] MEDS: buPROPion XL 150 MG TAB.ER.24H PO SCH (08:11)
[2020-02-26] MEDS: CETIRIZINE HCL 10 MG TABLET PO SCH (08:11)
[2020-02-26] MEDS: ASPIRIN ENTERIC COATED 81 MG TABLET.DR. PO SCH (08:11)
[2020-02-26] MEDS: THIAMINE 100 MG TABLET. PO SCH (08:11)
[2020-02-26] MEDS: CHOLECALCIFEROL (VITAMIN D3) 1,000 UNIT TABLET PO SCH (08:12)
--- NOTE | 2020-02-26 09:18 | RAD ---
EXAM: Chest, single view. HISTORY: Shortness of air. COMPARISON: 01/28/2020 FINDINGS: A frontal view of the chest is obtained. There is a right middle lobe mass which appears slightly increased compared to the prior exam, a component of which may be due to differences in image projection. There is suspected bilateral lower lobe atelectasis or chronic interstitial change. There is a stable cardiac silhouette. There is no pleural effusion or pneumothorax. IMPRESSION: 1. Right middle lobe mass. This may be slightly increased compared to the prior study and is better characterized on the CT dated 12/28/2019. The additional smaller pulmonary nodules on the prior CT are not well seen radiographic with. 2. Suspected bilateral lower lobe atelectasis or chronic interstitial change. Electronically signed by: Shahana Chiu MD (02/26/2020 9:15 AM) [facility]
[2020-02-26 11:23] LABS: CREATININE 0.6 mg/dL (0.6-1.0); GFR 99.1; POTASSIUM 4.2 mmol/L (3.5-5.1)
[2020-02-26 11:30] LABS: ALBUMIN 2.7 g/dL (3.4-5.0); ALBUMIN/GLOBULIN RATIO 0.6 (1.0-1.7); TOTAL BILIRUBIN 0.2 mg/dL (0.2-1.0); TOTAL PROTEIN 7.2 g/dL (6.4-8.2)
[2020-02-26 12:20] VITALS: BP 113/79
[2020-02-26 12:22] LABS: HEMATOCRIT 38.5 % (36.0-47.0); HEMOGLOBIN 12.6 g/dL (12.0-15.5); RED BLOOD COUNT 4.08 x10^6/uL (3.50-5.40); RED CELL DISTRIBUTION WIDTH 16.9 % (11.5-14.5); WHITE BLOOD COUNT 6.4 x10^3/uL (4.0-11.0)
[2020-02-26] MEDS ORDERED: MAG30ORA2 PO (14:06)
[2020-02-26] MEDS ORDERED: METH57CR17 TP (14:07)
[2020-02-26] MEDS ORDERED: BUSP5TAB PO (14:08)
[2020-02-26] MEDS ORDERED: CLOZ100T PO (14:09)
[2020-02-26] MEDS ORDERED: TRAZ-120 PO (14:09)
[2020-02-26 17:19] VITALS: BP 113/79
--- NOTE | 2020-02-27 10:07 | PDOC ---
Exam Note: Norris Note: This is a late entry for DOD 02/26/2020. Please also refer to the separate dictated note~for this date of service dictated separately.~Patient seen individually. Discussed the patient with Nursing staff reviewed the chart.~Reviewed interim history and current functioning. Reviewed vital signs,~Labs/ Radiology~and current medications noted below. Continue current treatment with the changes noted in the dictated addendum note Assessment: Vital Signs/I&O: Vital Signs Date Time Temp Pulse Resp B/P (MAP) Pulse Ox O2 Delivery O2 Flow Rate FiO2 02/26/20 17:19 89 113/79 02/26/20 12:20 97.8 16 93 Nasal Cannula 3.0 I & O 02/26/20 02/26/20 02/27/20 14:59 22:59 06:59 Intake Total 720 ml 240 ml Balance 720 ml 240 ml Labs: Laboratory Tests Test 02/26/20 11:07 02/26/20 12:12 White Blood Count 6.4 x10^3/uL (4.0-11.0) Red Blood Count 4.08 x10^6/uL (3.50-5.40) Hemoglobin 12.6 g/dL (12.0-15.5) Hematocrit 38.5 % (36.0-47.0) Mean Corpuscular Volume 94 fL (79-100) Mean Corpuscular Hemoglobin 31 pg (25-35) Mean Corpuscular Hemoglobin Concent 33 g/dL (31-37) Red Cell Distribution Width 16.9 % (11.5-14.5) H Platelet Count 286 x10^3/uL (140-400) Sodium Level 141 mmol/L (136-145) Potassium Level 4.2 mmol/L (3.5-5.1) Chloride Level 106 mmol/L (98-107) Carbon Dioxide Level 31 mmol/L (21-32) Anion Gap 4 (6-14) L Blood Urea Nitrogen 17 mg/dL (7-20) Creatinine 0.6 mg/dL (0.6-1.0) Estimated GFR (Cockcroft-Gault) 99.1 BUN/Creatinine Ratio 28 (6-20) H Glucose Level 107 mg/dL (70-99) H Calcium Level 9.0 mg/dL (8.5-10.1) Total Bilirubin 0.2 mg/dL (0.2-1.0) Aspartate Amino Transferase (AST) 20 U/L (15-37) Alanine Aminotransferase (ALT) 20 U/L (14-59) Alkaline Phosphatase 67 U/L (46-116) Total Protein 7.2 g/dL (6.4-8.2) Albumin 2.7 g/dL (3.4-5.0) L Albumin/Globulin Ratio 0.6 (1.0-1.7) L Coronavirus (COVID-19)(PCR) See separate report Current Medications: I have reviewed the current psychotropics carefully including drug interactions. Risk benefit ratio favors no change other than as noted in my dictated progress note. Diagnosis: Problems: (1) Bipolar disorder, curr episode mixed, severe, with psychotic features (2) Anxiety disorder (3) Impulse control disorder (4) Schizoaffective disorder, chronic condition with acute exacerbation (5) Personality disorder in adult LI CABRERA MD Feb 27, 2020 10:07
--- NOTE | 2020-03-05 12:44 | DS ---
DATE OF DISCHARGE: 02/26/2020 DISCHARGE SUMMARY/PSYCHIATRIC PROGRESS NOTE This late entry, 02/26/2020, covers elements not covered in my initial note. I dictated this summary previously, but cannot be found in the system and I am re-dictating. REASON FOR ADMISSION: Please refer to the admission history for details. Briefly, the patient is a 69-year-old female referred to us from [facility] on account of worsening psychotic symptoms and agitation. The patient was exit seeking, delusional, believing her sister was trying to sacrifice her. She stated she had a miscarriage and her sister was going to eat the baby and stated she has spirit vision and can see things that the staff cannot. Behaviors were deemed dangerous, unmanageable at the facility, had failed outpatient psychiatric interventions resulting in this referral. SIGNIFICANT FINDINGS AND CLINICAL COURSE: Following admission, the patient was seen daily individually by myself from a psychiatric standpoint, medical followup with Dr. Nelson. The patient was extremely psychotic, initially talking about seeing Maira, a make-believe person and communicating with her and this person would control her. Adjustments in her psychotropics seemed to help significantly with her psychotic symptoms and she seemed to respond to a combination of Clozaril 125 mg at bedtime, weekly CBC, absolute neutrophil counts were stable. She is also on Wellbutrin-XL 300 mg a day, Depakote ER 1500 mg at bedtime, Prozac 20 mg a day, trazodone 50 mg at bedtime, may repeat x 1 p.r.n. for insomnia. BuSpar 5 mg b.i.d. There was COVID-19 exposure on the unit and the patient was transferred to the medical/surgical floor for medical management with Dr. Nelson. Psychiatrically prior to discharge, she was doing better, though intermittently still psychotic, talking to the door knobs intermittently, but minimally. MENTAL STATUS EXAM: Prior to discharge, the patient is oriented to herself and situation. Speech has some latency, coherent, has some abstraction, fair computation impaired, language function intact, attention span short. Mood and affect withdrawn. LABORATORY DATA: Reviewed. FINAL DIAGNOSES: Schizoaffective disorder, bipolar type, mixed with psychotic features; anxiety disorder, unspecified. Rest unchanged from admission. DISCHARGE MEDICATIONS: Please refer to the [facility]AD. DISCHARGE INSTRUCTIONS: Psychiatric and medical followup on the Medical/Surgical floor. Time for discharge day management greater than 30 minutes. LI CABRERA MD DR: FRED/minnie JOB#: [id number] / [id number]
== END 2020-02-26 18:18 | disposition short-term general hospital (02) | DRG 885 ==
LOC: ER 17:14 → GEROPSY 18:51
PROVIDERS: ADMIT Psychiatry & Neurology Psychiatry; ATTEND Psychiatry & Neurology Psychiatry
DX: F25.0 Schizoaffective disorder, bipolar type (principal); F03.91 Unspecified dementia, unspecified severity, with behavioral disturbance; F41.9 Anxiety disorder, unspecified; F44.81 Dissociative identity disorder; F60.9 Personality disorder, unspecified; F63.9 Impulse disorder, unspecified; G47.00 Insomnia, unspecified; I70.0 Atherosclerosis of aorta; J45.909 Unspecified asthma, uncomplicated; M85.80 Other specified disorders of bone density and structure, unspecified site; Z79.899 Other long term (current) drug therapy; Z87.19 Personal history of other diseases of the digestive system; Z87.891 Personal history of nicotine dependence; Z90.49 Acquired absence of other specified parts of digestive tract; F29 Unspecified psychosis not due to a substance or known physiological condition; K59.00 Constipation, unspecified; M25.512 Pain in left shoulder; K30 Functional dyspepsia; R07.89 Other chest pain; Z88.8 Allergy status to other drugs, medicaments and biological substances; Z20.818 Contact with and (suspected) exposure to other bacterial communicable diseases
CPT/HCPCS: 36415; 36600; 70450; 71045; 71046; 71275; 80048; 80053; 80061; 80076; 80164; 80307; 81001; 82140; 82306; 82550; 82607; 82803; 83036; 83540; 83550; 83690; 83735; 83880; 84436; 84443; 84480; 84484; 85007; 85025; 85027; 85379; 85610; 85651; 85730; 86592; 93005; 99285; J2426; Q9967

== ENCOUNTER 2020-02-26 15:30 | Inpatient (IN) | payer MEDICARE, MEDICAID ==
[~2020-02-26] VITALS: Ht 157.5 cm; Wt 63.0 kg
[~2020-02-26 15:30] MED LIST: ACET325C6 PO; ASPI-612 PO; BUPR-192 PO; BUSP5TAB PO; CHOL200078 PO; CLOZ100T PO; DIVA500T4 PO; FLUO40CA2 PO; MAG30ORA2 PO; MAGN24003 PO; METH57CR17 TP; MIDO10TA PO; MULT-503 PO; OLAN10TA9 PO; PALI234D IM; PALI6TAB3 PO; TEMA15CA PO; THIA100T57 PO; TRAZ-120 PO
[2020-02-26 18:28] VITALS: BP 128/76
[2020-02-26] MEDS ORDERED: ONDANSETRON PF 4 MG/2 ML VIAL. IVP PRN (18:45)
[2020-02-26 19:04] LABS: BASO % 1 % (0-3); EOS # 0.3 x10^3/uL (0.0-0.7); EOS % 4 % (0-3); HEMATOCRIT 39.3 % (36.0-47.0); HEMOGLOBIN 12.7 g/dL (12.0-15.5); LYMPH % 29 % (24-48); MEAN CORPUSCULAR HEMOGLOBIN 31 pg (25-35); MEAN CORPUSCULAR HGB CONC 32 g/dL (31-37); MEAN CORPUSCULAR VOLUME 95 fL (79-100); MONO # 0.9 x10^3/uL (0.0-1.1); MONO % 13 % (0-9); NEUT # 3.9 x10^3uL (1.8-7.7); NEUT % 55 % (31-73); PLATELET COUNT 290 x10^3/uL (140-400); RED BLOOD COUNT 4.14 x10^6/uL (3.50-5.40); RED CELL DISTRIBUTION WIDTH 17.3 % (11.5-14.5); WHITE BLOOD COUNT 7.1 x10^3/uL (4.0-11.0)
[2020-02-26 19:19] LABS: ALBUMIN 3.1 g/dL (3.4-5.0); ALBUMIN/GLOBULIN RATIO 0.7 (1.0-1.7); ALK PHOS 80 U/L (46-116); ALT (SGPT) 23 U/L (14-59); ANION GAP 7 (6-14); AST (SGOT) 29 U/L (15-37); BLOOD UREA NITROGEN 20 mg/dL (7-20); BUN/CREATININE RATIO 33 (6-20); CALCIUM 9.1 mg/dL (8.5-10.1); CARBON DIOXIDE 31 mmol/L (21-32); CHLORIDE 101 mmol/L (98-107); CREATININE 0.6 mg/dL (0.6-1.0); GFR 99.1; GLUCOSE 110 mg/dL (70-99); SODIUM 139 mmol/L (136-145); TOTAL PROTEIN 7.5 g/dL (6.4-8.2)
[2020-02-26 19:23] LABS: TOTAL BILIRUBIN < 0.1 mg/dL (0.2-1.0)
[2020-02-26 19:24] LABS: POTASSIUM 4.5 mmol/L (3.5-5.1)
[2020-02-26] MEDS ORDERED: MAG HYDROX/AL HYDROX/SIMETH 30 ML ORAL.SUSP PO PRN (19:30)
[2020-02-26 20:00] VITALS: BP 131/73
[2020-02-26] MEDS ORDERED: METHYL SALICYLATE/MENTHOL TOPICAL OINTMENT 57GM TUBE. TP PRN (20:00)
[2020-02-26] MEDS ORDERED: MAGNESIUM HYDROXIDE 2,400 MG/30 ML ORAL.SUSP. PO PRN (20:00)
[2020-02-26] MEDS ORDERED: AZITHROMYCIN 500 MG in IV NORMAL SALINE 250ML 250 ML IV ONE (21:00)
[2020-02-26] MEDS ORDERED: AZITHROMYCIN 250 MG TABLET. PO ONE (21:00)
[2020-02-26] MEDS ORDERED: HYDROXYCHLOROQUINE 200 MG TABLET PO SCH ×2 (21:00)
[2020-02-26] MEDS: cloZAPine 100 MG TABLET PO SCH (21:47)
[2020-02-26] MEDS: HYDROXYCHLOROQUINE (PROGRAM) 200 MG TABLET PO SCH (21:47)
[2020-02-26] MEDS: ACETAMINOPHEN 325 MG TABLET PO PRN (21:48)
[2020-02-26] MEDS: DIVALPROEX ER 500 MG TAB.ER.24H PO SCH (21:48)
[2020-02-26] MEDS: traZODone 50 MG TABLET. PO PRN (21:48)
[2020-02-26 23:00] VITALS: BP 103/55
[2020-02-27 03:03] VITALS: BP 101/61
[2020-02-27 06:44] VITALS: BP 121/69
[2020-02-27 06:44] LABS: BASO % 1 % (0-3); EOS # 0.3 x10^3/uL (0.0-0.7); EOS % 5 % (0-3); HEMATOCRIT 38.7 % (36.0-47.0); HEMOGLOBIN 12.6 g/dL (12.0-15.5); LYMPH # 1.8 x10^3/uL (1.0-4.8); LYMPH % 32 % (24-48); MEAN CORPUSCULAR HEMOGLOBIN 31 pg (25-35); MEAN CORPUSCULAR HGB CONC 33 g/dL (31-37); MEAN CORPUSCULAR VOLUME 95 fL (79-100); MONO # 0.8 x10^3/uL (0.0-1.1); MONO % 15 % (0-9); NEUT # 2.6 x10^3uL (1.8-7.7); NEUT % 48 % (31-73); PLATELET COUNT 279 x10^3/uL (140-400); RED BLOOD COUNT 4.08 x10^6/uL (3.50-5.40); RED CELL DISTRIBUTION WIDTH 16.8 % (11.5-14.5); WHITE BLOOD COUNT 5.5 x10^3/uL (4.0-11.0)
[2020-02-27 07:02] LABS: ALBUMIN 2.7 g/dL (3.4-5.0); ALBUMIN/GLOBULIN RATIO 0.6 (1.0-1.7); CALCIUM 8.5 mg/dL (8.5-10.1); CREATININE 0.5 mg/dL (0.6-1.0); GFR 122.3; POTASSIUM 3.9 mmol/L (3.5-5.1); TOTAL BILIRUBIN 0.2 mg/dL (0.2-1.0); TOTAL PROTEIN 7.2 g/dL (6.4-8.2)
[2020-02-27] MEDS: CHOLECALCIFEROL (VITAMIN D3) 1,000 UNIT TABLET PO SCH (08:29)
[2020-02-27] MEDS: ASPIRIN ENTERIC COATED 81 MG TABLET.DR. PO SCH (08:32)
[2020-02-27] MEDS: MULTIVITAMIN with MINERAL TABLET. PO SCH (08:32)
[2020-02-27] MEDS: MIDODRINE 5 MG TABLET PO SCH ×2 (08:32→17:00)
[2020-02-27] MEDS: HYDROXYCHLOROQUINE (PROGRAM) 200 MG TABLET PO SCH (08:33)
[2020-02-27] MEDS: busPIRone 5 MG TABLET. PO SCH ×2 (08:34→16:00)
[2020-02-27] MEDS: FLUoxetine HCL 20 MG CAPSULE PO SCH (08:34)
[2020-02-27] MEDS: THIAMINE 100 MG TABLET. PO SCH (08:34)
[2020-02-27] MEDS: buPROPion XL 300 MG TAB.ER.24H. PO SCH (08:35)
[2020-02-27] MEDS ORDERED: AZITHROMYCIN 250 MG TABLET. PO SCH (09:00)
[2020-02-27 09:35] VITALS: BP 123/80
[2020-02-27 12:23] VITALS: BP 103/72
--- NOTE | 2020-02-27 14:47 | DS ---
DATE OF DISCHARGE: HOSPITAL COURSE: The patient was transferred yesterday from [facility] on account of suspicion that she might be COVID positive as she was hypoxic. She also was complaining of shortness of breath, respiratory distress. Swab was obtained at the [facility] and was pending by the time she arrived here. She was placed in contact and airborne precautions per protocol. When she arrived here, she was maintaining her oxygen in the low 90s on room air; alert, oriented to self only. She was delusional, believes, she is here to have six babies. She has remained stable hemodynamically. Her SARS coronavirus RNA real-time PCR was not detected and therefore, a decision was made to transfer her back to [facility]. PHYSICAL EXAMINATION: Today, she looked well and was clearly in no apparent respiratory distress. No pallor, jaundice, cyanosis or thyromegaly. No jugular venous distention or limb edema. VITAL SIGNS: Her heart rate was 82, blood pressure was 123/80, temperature 97.1, respiratory rate was 16, and oxygen saturation was 93% on 2 liters of oxygen. HEAD, EYES, EARS, NOSE AND THROAT: Normocephalic, atraumatic. NECK: Supple. HEART: Showed normal first and second sounds. No gallop or murmur. CHEST: Clear to auscultation. No crepitation or rhonchi. ABDOMEN: Distended, soft, nontender. NEUROLOGIC: She is confused, but otherwise all her cranial nerves are intact. EXTREMITIES: She moves extremities without difficulty. LABORATORY WORK: This morning showed a white cell count 5500, hemoglobin 12.6, hematocrit 38, MCV 95, and platelet count 279,000. Her serum sodium was 140, potassium 3.9, chloride 105, bicarbonate 32, anion gap of 3, BUN 13, creatinine 0.5, estimated GFR was 122 mL. Her glucose was 78, calcium was 8.5. Total bilirubin, AST, ALT, alkaline phosphatase were normal. Total protein was 7.2, albumin was 2.7. DISCHARGE MEDICATIONS: The patient was discharged back to [facility] to continue on acetaminophen 650 mg every 6 hours, aspirin 81 mg once a day, Wellbutrin 300 mg daily, buspirone 5 mg twice a day, cholecalciferol vitamin D3 2000 units once a day, Clozaril 150 mg at bedtime, divalproex sodium 1500 mg at bedtime, fluoxetine 20 mg once a day, magnesium hydroxide for milk of magnesia 30 mL p.o. daily p.r.n. for constipation, midodrine 10 mg twice a day as needed, multivitamin with mineral 1 tablet once a day, thiamin vitamin B1 100 mg once a day, and trazodone 50 mg at bedtime. FINAL DISCHARGE DIAGNOSES: Shortness of air, respiratory distress with suspected COVID-19 was negative. JONATAN VALVERDE MD DR: SHMUEL/minnie JOB#: [id number] / [id number]
--- NOTE | 2020-02-27 15:06 | HP ---
ADMIT DATE: HISTORY OF PRESENT ILLNESS: The patient is a 69-year-old female patient who was transferred from [facility] yesterday as the patient was found to be hypoxic, requiring 3 liters of oxygen to bring up her oxygen saturation ____. The patient was wheezing and complaining of tiredness and somewhat hypotension and therefore, she was put in a temporary isolation, hourly monitoring of symptoms and a decision was made to transfer her down to the ICU. She was swabbed for COVID-19. The patient herself does not give any useful information. Given that there are other residents that tested positive, a decision was made to transfer her to the ICU and await the result of the test. PAST MEDICAL HISTORY: Unremarkable. PAST PSYCHIATRIC HISTORY: Significant for schizoaffective disorder, bipolar disorder, colonic polyps, dementia and behavioral disturbances. PAST SURGICAL HISTORY: Unremarkable. ALLERGIES: She is allergic to ____, CODEINE, NICOTINE, and STRAWBERRY. FAMILY HISTORY: Noncontributory. SOCIAL HISTORY: She is a resident at [facility]; however, no other further information available. She did have lab work done, which showed a white cell count of 6400, hemoglobin 12.6, hematocrit 38.5, MCV 94 and platelet count 286,000. Her chemistry was also unremarkable. PHYSICAL EXAMINATION: GENERAL: On examining her, she looked well and was clearly in no apparent respiratory distress. No pallor, jaundice, cyanosis or thyromegaly. No jugular venous distention. No lower limb edema. VITAL SIGNS: Her heart rate was 88, blood pressure was 128/76, temperature 97.1, respiratory rate was 19 and oxygen saturation was 91% on room air. HEAD, EYES, EARS, NOSE AND THROAT: Showed normocephalic, atraumatic. NECK: Supple. HEART: Showed normal first and second heart sounds. No gallop or murmur. CHEST: Clear to auscultation. No crepitation or rhonchi. ABDOMEN: Distended, soft, nontender. NEUROLOGIC: She is confused, but without any obvious lateralizing sign. LABORATORY DATA: Her lab work done before she was transferred once to the ICU, showed a white cell count of 6400, hemoglobin 12.6, hematocrit 38, MCV 94 and platelet count 286,000. Her serum sodium was 141, potassium 4.2, chloride 106, bicarbonate 31, anion gap of 4, BUN 17, creatinine 0.6, estimated GFR was 99 mL per minute. Her glucose 107, calcium was 9. Total bilirubin, AST, ALT, alkaline phosphatase were normal. Total protein was 7.2, albumin was 2.7. Her ____. Her prothrombin time was normal. MEDICATIONS: She was basically transferred to ICU to continue on following medications: She is on midodrine 10 mg twice a day, aspirin 81 mg once a day, methyl salicylate for Bengay Greaseless cream applied topically 4 times a day, acetaminophen 650 mg p.o. q. 6 hourly, divalproex sodium 1500 mg at bedtime and Wellbutrin 300 mg daily, fluoxetine 20 mg daily, trazodone 50 mg at bedtime as needed, clozapine for Clozaril 150 mg at bedtime. Buspirone 5 mg twice a day, magnesium hydroxide for Mylanta 15 mL after meals and as needed, milk of magnesia 30 mL p.o. q. 6 hourly, thiamine 100 mg once a day, cholecalciferol 2000 units p.o. daily, multivitamin with mineral 1 tablet once a day. PLAN: To await the result of the COVID, continue with oxygen supplementation, continue with all her current medications. JONATAN VALVERDE MD DR: SHMUEL/minnie JOB#: [id number] / [id number]
[2020-02-27 15:42] VITALS: BP 115/77
[2020-02-27 19:35] VITALS: BP 121/77
[2020-02-27] MEDS: traZODone 50 MG TABLET. PO PRN (20:38)
[2020-02-27] MEDS: ACETAMINOPHEN 325 MG TABLET PO PRN (20:38)
[2020-02-27] MEDS: DIVALPROEX ER 500 MG TAB.ER.24H PO SCH (20:38)
[2020-02-27] MEDS: cloZAPine 100 MG TABLET PO SCH (20:39)
[2020-02-27] MEDS ORDERED: HYDROXYCHLOROQUINE (PROGRAM) 200 MG TABLET PO SCH (21:00)
[2020-02-28 05:51] VITALS: BP 116/77
[2020-02-28] MEDS: THIAMINE 100 MG TABLET. PO SCH (09:06)
[2020-02-28] MEDS: MIDODRINE 5 MG TABLET PO SCH ×2 (09:07→16:23)
[2020-02-28] MEDS: busPIRone 5 MG TABLET. PO SCH ×2 (09:07→16:23)
[2020-02-28] MEDS: CHOLECALCIFEROL (VITAMIN D3) 1,000 UNIT TABLET PO SCH (09:07)
[2020-02-28] MEDS: buPROPion XL 300 MG TAB.ER.24H. PO SCH (09:07)
[2020-02-28] MEDS: FLUoxetine HCL 20 MG CAPSULE PO SCH (09:07)
[2020-02-28] MEDS: MULTIVITAMIN with MINERAL TABLET. PO SCH (09:07)
[2020-02-28] MEDS: ASPIRIN ENTERIC COATED 81 MG TABLET.DR. PO SCH (09:07)
[2020-02-28 12:23] VITALS: BP 123/79
--- NOTE | 2020-02-28 14:41 | PN ---
DATE: 02/28/2020 SUBJECTIVE: The patient is resting flat in bed, in no apparent distress. On questioning her, denied any complaint. The only thing that bothers her the fact that she has an IV line in her right antecubital fossa. She denied any other complaint. The nursing staff stated that she continued to be illusional, stating that she is and will have a boy and a girl. She is otherwise sufficient. She managed to get up from the bed and walk around without any difficulty. PHYSICAL EXAMINATION: GENERAL: When I examined her, she looked well and was clearly in no apparent respiratory distress. No pallor, jaundice, cyanosis or thyromegaly. No jugular venous distention. No limb edema. VITAL SIGNS: Her heart rate was 81, blood pressure was 123/79, temperature was 97.8, respiratory rate was 16, and oxygen saturation was 95% on 1.5 liters of oxygen. HEAD, EYES, EARS, NOSE AND THROAT: Showed normocephalic and atraumatic. NECK: Supple. HEART: Showed normal first and second heart sounds. No gallop, rub or murmur. CHEST: Clear to auscultation. No crepitation or rhonchi. ABDOMEN: Distended, soft, and nontender. NEUROLOGIC: She was awake, alert, responding appropriately. All cranial nerves are intact. She moves extremities without difficulty. She ambulates without assistance or assistive devices. Her intake over the last 24 hours was 500, no output was recorded. LABORATORY DATA: As of yesterday, her white cell count was normal 5500, hemoglobin 12, hematocrit 38, MCV 95, and platelet count of 279,000. Her chemistry showed a serum sodium 140, potassium 3.9, chloride 105, bicarbonate 32, anion gap of 3, BUN 13, creatinine 0.5, and estimated GFR was 122 mL per minute. Her glucose was 78, calcium was 8.5. Total bilirubin, AST, ALT, alkaline phosphatase were normal. Total protein was 7.2, albumin was 2.7. ASSESSMENT: In summary, this is a 69-year-old female patient who was transferred from [facility] as the patient was hypoxic, requiring 3 liters of oxygen. She was also wheezy, complaining of tiredness and somewhat hypotensive and therefore, she was put in a temporary isolation and hourly monitoring of symptoms and a decision was made to transfer her down to the ICU and was swabbed for COVID-19 and luckily her COVID-19 test was negative. She is now here in [facility] and to be quarantine for 7 days before she can go back to her long term facility. She is afebrile, hemodynamically stable. Other medical problems include schizoaffective disorder, bipolar disorder, dementia with behavioral disturbances. We will continue with all her current medication. I will repeat her lab work one more time. We stopped her azithromycin and hydroxychloroquine. JONATAN VALVERDE MD DR: SHMUEL/minnie JOB#: [id number] / [id number]
[2020-02-28 15:25] VITALS: BP 119/74
[2020-02-28 19:22] VITALS: BP 114/75
[2020-02-28] MEDS: DIVALPROEX ER 500 MG TAB.ER.24H PO SCH (20:31)
[2020-02-28] MEDS: cloZAPine 100 MG TABLET PO SCH (20:32)
[2020-02-28] MEDS: traZODone 50 MG TABLET. PO PRN (20:44)
[2020-02-28] MEDS: ACETAMINOPHEN 325 MG TABLET PO PRN (20:44)
[2020-02-28 23:29] VITALS: BP 124/76
[2020-02-29 05:33] VITALS: BP 121/70
[2020-02-29 06:47] LABS: HEMATOCRIT 40.6 % (36.0-47.0); HEMOGLOBIN 13.1 g/dL (12.0-15.5); RED BLOOD COUNT 4.28 x10^6/uL (3.50-5.40); WHITE BLOOD COUNT 5.9 x10^3/uL (4.0-11.0)
[2020-02-29 06:55] LABS: ALBUMIN 2.9 g/dL (3.4-5.0); ALBUMIN/GLOBULIN RATIO 0.6 (1.0-1.7); CALCIUM 9.1 mg/dL (8.5-10.1); CREATININE 0.5 mg/dL (0.6-1.0); GFR 122.3; POTASSIUM 3.9 mmol/L (3.5-5.1); TOTAL BILIRUBIN 0.2 mg/dL (0.2-1.0); TOTAL PROTEIN 7.6 g/dL (6.4-8.2)
[2020-02-29] MEDS: busPIRone 5 MG TABLET. PO SCH ×2 (08:38→17:03)
[2020-02-29] MEDS: THIAMINE 100 MG TABLET. PO SCH (08:38)
[2020-02-29] MEDS: ASPIRIN ENTERIC COATED 81 MG TABLET.DR. PO SCH (08:38)
[2020-02-29] MEDS: MULTIVITAMIN with MINERAL TABLET. PO SCH (08:38)
[2020-02-29] MEDS: CHOLECALCIFEROL (VITAMIN D3) 1,000 UNIT TABLET PO SCH (08:38)
[2020-02-29] MEDS: FLUoxetine HCL 20 MG CAPSULE PO SCH (08:38)
[2020-02-29] MEDS: MIDODRINE 5 MG TABLET PO SCH ×2 (08:39→17:04)
[2020-02-29] MEDS: buPROPion XL 300 MG TAB.ER.24H. PO SCH (08:39)
[2020-02-29 10:43] VITALS: BP 119/60
--- NOTE | 2020-02-29 13:17 | PN ---
DATE: SUBJECTIVE: The patient is resting, slightly propped up in bed, in no apparent respiratory distress. She is awake, alert. On questioning her, denied any complaint. The nursing staff did not voice any concerns that she has an uneventful night. PHYSICAL EXAMINATION: GENERAL: When I examined her, she looked somewhat pale. No jaundice, cyanosis or thyromegaly. No jugular venous distention or limb edema. VITAL SIGNS: Her heart rate was 82, blood pressure was 119/60, temperature 96.7, respiratory rate 20, and oxygen saturation was 93% on 2 liters of oxygen. The rest of clinical examination is stable. Her intake was 1040, no output was recorded. LABORATORY DATA: Her lab work as of this morning showed a serum sodium 140, potassium 3.9, chloride 105, bicarbonate 30, anion gap of 5, BUN 17, creatinine 0.5, estimated GFR was 122 mL per minute. Her glucose was 389, calcium was 9.1. Total bilirubin, AST, ALT, alkaline phosphatase were normal. Total protein 7.6, albumin 2.9. Her white cell count was 5900, hemoglobin 13, hematocrit 41, MCV 95, and platelet count 266,000. ASSESSMENT: 1. This is a 69-year-old female patient who was transferred from [facility] as she was hypoxic, requiring 3 liters of oxygen. She is also wheezy complaining of tiredness and somewhat hypotensive and therefore, she was put on temporary isolation and hourly monitoring of her symptoms and a decision was made to transfer her down to the ICU. She was swabbed for COVID-19 and likely her COVID-19 test was negative. 2. She is here now in [facility] to be quarantined for 7 days before she can go back to her [facility] facility. She is afebrile, hemodynamically stable. 3. Other medical problems include, A. Schizoaffective disorder. B. Bipolar disorder. C. Dementia with behavior disturbance. JONATAN VALVERDE MD DR: SHMUEL/minnie JOB#: [id number] / [id number]
[2020-02-29 19:00] VITALS: BP 110/72
[2020-02-29] MEDS: ACETAMINOPHEN 325 MG TABLET PO PRN (22:01)
[2020-02-29] MEDS: traZODone 50 MG TABLET. PO PRN (22:01)
[2020-02-29] MEDS: DIVALPROEX ER 500 MG TAB.ER.24H PO SCH (22:01)
[2020-02-29] MEDS: cloZAPine 100 MG TABLET PO SCH (22:01)
[2020-02-29 22:43] VITALS: BP 110/72
[2020-03-01 07:20] VITALS: BP 116/71
[2020-03-01] MEDS: CHOLECALCIFEROL (VITAMIN D3) 1,000 UNIT TABLET PO SCH (08:43)
[2020-03-01] MEDS: ACETAMINOPHEN 325 MG TABLET PO PRN (08:44)
[2020-03-01] MEDS: MIDODRINE 5 MG TABLET PO SCH ×2 (08:44→17:00)
[2020-03-01] MEDS: FLUoxetine HCL 20 MG CAPSULE PO SCH (08:44)
[2020-03-01] MEDS: MULTIVITAMIN with MINERAL TABLET. PO SCH (08:44)
[2020-03-01] MEDS: busPIRone 5 MG TABLET. PO SCH ×2 (08:44→16:00)
[2020-03-01] MEDS: THIAMINE 100 MG TABLET. PO SCH (08:44)
[2020-03-01] MEDS: ASPIRIN ENTERIC COATED 81 MG TABLET.DR. PO SCH (08:57)
[2020-03-01] MEDS: buPROPion XL 300 MG TAB.ER.24H. PO SCH (08:57)
--- NOTE | 2020-03-01 12:35 | PN ---
DATE: 03/01/2020 SUBJECTIVE: The patient is resting flat, sleeping comfortably, in no apparent distress. On questioning her, denied any complaint. The nursing staff did not voice any concern. Stated that she has uneventful night. PHYSICAL EXAMINATION: GENERAL: When I examined her, she looked pale. She was not jaundiced, cyanosed, or thyromegaly. No jugular venous distension. No limb edema. VITAL SIGNS: Her heart rate was 77, blood pressure 116/71, temperature 97.2, respiratory rate was 18 and oxygen saturation was 94% on 3 liters of oxygen. HEAD, EYES, EARS, NOSE AND THROAT: Showed normocephalic, atraumatic. NECK: Supple. HEART: Normal first and second heart sounds. No gallop or murmur. CHEST: Clear to auscultation. No crepitation or rhonchi. ABDOMEN: Distended, soft, nontender. No guarding or rigidity. No organomegaly. All hernial orifice intact. Bowel sounds normal. NEUROLOGIC: She was awake, alert. She is confused, but all her cranial nerves are intact. EXTREMITIES: She moves extremities without difficulty. Her intake over the last 24 hours was 914. No output was recorded. LABORATORY DATA: As of yesterday, her serum sodium was 140, potassium 3.9, chloride 105, bicarbonate 30, anion gap of 5, BUN 17, creatinine 0.5, estimated GFR was 122 mL per minute. Her glucose was 89, calcium was 9.1. Total bilirubin, AST, ALT, alkaline phosphatase are normal. Her white cell count was 5900, hemoglobin 13, hematocrit 41, MCV 95, and platelet count 266,000. Her COVID-19 by PCR was negative. ASSESSMENT: In summary, this is a 69-year-old female patient who was transferred from [facility]. She was hypoxic, requiring 3 liters of oxygen. She is also wheezing, complaining of tiredness and somewhat hypertensive. Therefore, she was put on her temporary isolation, hourly monitoring her symptoms and a decision was made to transfer her down into the ICU. She was swabbed for COVID-19 and luckily her COVID-19 test was negative. 2. She is here now in [address] [place] [address] to continue to be quarantined for 7 days before she can go back to her residential facility. She is afebrile, hemodynamically stable. 3. Other medical problems include: A. Schizoaffective disorder. B. Bipolar disorder. C. Dementia with behavioral disorder. JONATAN VALVERDE MD DR: SHMUEL/minnie JOB#: [id number] / [id number]
[2020-03-01 12:47] VITALS: BP 111/59
[2020-03-01 19:54] VITALS: BP 117/73
[2020-03-01] MEDS: cloZAPine 100 MG TABLET PO SCH (21:28)
[2020-03-01] MEDS: DIVALPROEX ER 500 MG TAB.ER.24H PO SCH (21:28)
[2020-03-02 06:23] LABS: BASO % 0 % (0-3); EOS # 0.2 x10^3/uL (0.0-0.7); EOS % 3 % (0-3); HEMATOCRIT 40.7 % (36.0-47.0); HEMOGLOBIN 13.2 g/dL (12.0-15.5); LYMPH # 1.4 x10^3/uL (1.0-4.8); LYMPH % 23 % (24-48); MEAN CORPUSCULAR HEMOGLOBIN 31 pg (25-35); MEAN CORPUSCULAR HGB CONC 32 g/dL (31-37); MEAN CORPUSCULAR VOLUME 95 fL (79-100); MONO # 0.8 x10^3/uL (0.0-1.1); MONO % 13 % (0-9); NEUT # 3.8 x10^3uL (1.8-7.7); NEUT % 61 % (31-73); PLATELET COUNT 275 x10^3/uL (140-400); RED BLOOD COUNT 4.28 x10^6/uL (3.50-5.40); RED CELL DISTRIBUTION WIDTH 16.6 % (11.5-14.5); WHITE BLOOD COUNT 6.3 x10^3/uL (4.0-11.0)
[2020-03-02] MEDS: FLUoxetine HCL 20 MG CAPSULE PO SCH (08:03)
[2020-03-02] MEDS: ASPIRIN ENTERIC COATED 81 MG TABLET.DR. PO SCH (08:03)
[2020-03-02] MEDS: busPIRone 5 MG TABLET. PO SCH ×2 (08:03→16:23)
[2020-03-02] MEDS: THIAMINE 100 MG TABLET. PO SCH (08:03)
[2020-03-02] MEDS: CHOLECALCIFEROL (VITAMIN D3) 1,000 UNIT TABLET PO SCH (08:03)
[2020-03-02] MEDS: MULTIVITAMIN with MINERAL TABLET. PO SCH (08:04)
[2020-03-02] MEDS: MIDODRINE 5 MG TABLET PO SCH ×2 (08:04→16:23)
[2020-03-02] MEDS: buPROPion XL 300 MG TAB.ER.24H. PO SCH (08:56)
[2020-03-02 12:08] VITALS: BP 123/71
--- NOTE | 2020-03-02 13:11 | PN ---
DATE: 03/02/2020 SUBJECTIVE: The patient is resting flat in bed, in no apparent distress. On questioning her, she complained that she has acid indigestion. Denied any other complaint. PHYSICAL EXAMINATION: GENERAL: When I examined her, she looked well and was clearly in no apparent respiratory distress. No pallor, jaundice, cyanosis or thyromegaly. No jugular venous distension. No lower limb edema. VITAL SIGNS: Her heart rate was 90, blood pressure 123/71, temperature 98.1, respiratory rate was 18, and oxygen saturation was 91% on room air. HEAD, EYES, EARS, NOSE AND THROAT: Showed normocephalic and atraumatic. NECK: Supple. CARDIAC: Normal first and second heart sounds. No gallop or murmur. CHEST: Clear to auscultation. No crepitation or rhonchi. ABDOMEN: Distended, soft, and nontender. NEUROLOGIC: She is awake, alert, responding appropriately. All cranial nerves are intact. She moves extremities without difficulty. She ambulates without assistance or assistive devices. Her intake was 1013. Her output was recorded. LABORATORY DATA: As of this morning showed a white cell count 6300, hemoglobin 13.7, hematocrit 40.7, MCV 95, and platelet count of 275,000. Her chemistry showed a serum sodium 140, potassium 3.9, chloride 105, bicarbonate 30, anion gap of 5, BUN 17, creatinine 0.5, estimated GFR was 122 mL per minute. Her glucose was 89, calcium was 9.1. Total bilirubin, AST, ALT, alkaline phosphatase were normal. Total protein 7.6, albumin was 2.9. ASSESSMENT: 1. Acute hypoxic respiratory failure, has resolved. Her COVID-19 is negative. 2. The patient needs to continue to be quarantine for 7 days before she can go back to her intermediate facility. She continued to be afebrile, hemodynamically stable with normal white cell count. 3. Other medical problems include: A. Schizoaffective disorder. B. Bipolar disorder. C. Dementia with behavioral disturbances. PLAN: To continue with all her current medication. I will add Mylanta as well as H2 arnav. JONATAN VALVERDE MD DR: SHMUEL/minnie JOB#: [id number] / [id number]
[2020-03-02] MEDS ORDERED: MAG HYDROX/AL HYDROX/SIMETH 30 ML ORAL.SUSP PO PRN (13:15)
[2020-03-02 19:22] VITALS: BP 117/75
[2020-03-02] MEDS: DIVALPROEX ER 500 MG TAB.ER.24H PO SCH (20:22)
[2020-03-02] MEDS: cloZAPine 100 MG TABLET PO SCH (20:22)
[2020-03-03 06:35] VITALS: BP 123/80
[2020-03-03] MEDS: MIDODRINE 5 MG TABLET PO SCH ×2 (08:00→16:45)
[2020-03-03] MEDS: busPIRone 5 MG TABLET. PO SCH ×2 (08:16→16:36)
[2020-03-03] MEDS: FLUoxetine HCL 20 MG CAPSULE PO SCH (08:16)
[2020-03-03] MEDS: PANTOPRAZOLE 40 MG TABLET. PO SCH (08:16)
[2020-03-03] MEDS: buPROPion XL 300 MG TAB.ER.24H. PO SCH (08:18)
[2020-03-03] MEDS: ASPIRIN ENTERIC COATED 81 MG TABLET.DR. PO SCH (09:00)
[2020-03-03] MEDS: CHOLECALCIFEROL (VITAMIN D3) 1,000 UNIT TABLET PO SCH (09:00)
[2020-03-03] MEDS: THIAMINE 100 MG TABLET. PO SCH (09:00)
[2020-03-03] MEDS: MULTIVITAMIN with MINERAL TABLET. PO SCH (09:00)
--- NOTE | 2020-03-03 15:22 | PN ---
DATE: 03/03/2020 SUBJECTIVE: The patient is resting, slightly propped up in bed, in no apparent respiratory distress, awake, alert. On questioning her, denied any complaint. The nursing staff did not voice any concerns that she has an uneventful night. OBJECTIVE: GENERAL: On examining her, she looked well and was clearly in no apparent respiratory distress. No pallor, jaundice, cyanosis or thyromegaly. No jugular venous distention. No limb edema. VITAL SIGNS: Her heart rate was 87, blood pressure was 123/80, temperature was 98.7, respiratory rate was 18, and oxygen saturation was 92% on 2 liters of oxygen. HEAD, EYES, EARS, NOSE AND THROAT: Showed normocephalic, atraumatic. NECK: Supple. CARDIAC: Normal first and second heart sounds. No gallop or murmur. CHEST: Clear to auscultation. No crepitation or rhonchi. ABDOMEN: Scaphoid, soft, nontender. NEUROLOGIC: She is grossly intact. Her intake and output were incompletely recorded. LABORATORY DATA: Her lab work as of yesterday showed a white cell count 6300, hemoglobin 13, hematocrit 40, MCV 95, and platelet count 275,000. Her chemistry showed a BUN of 17, creatinine 0.5. ASSESSMENT: 1. Acute hypoxic respiratory failure, resolved. Her COVID-19 PCR test is negative. 2. The patient needs to be quarantine until 03/12/2020 before she can go back to [facility] facility. The patient continued to be afebrile, hemodynamically stable with normal white cell count. 3. Other medical problems include: A. Schizoaffective disorder. B. Bipolar disorder. C. Dementia with behavioral disturbances. PLAN: To continue with all her current medications. JONATAN VALVERDE MD DR: SHMUEL/minnie JOB#: [id number] / [id number]
[2020-03-03 16:50] VITALS: BP 119/81
[2020-03-03] MEDS ORDERED: ONDANSETRON ODT 4 MG TAB.RAPDIS PO PRN (18:00)
[2020-03-03 19:48] VITALS: BP 118/73
[2020-03-03] MEDS: cloZAPine 100 MG TABLET PO SCH (20:31)
[2020-03-03] MEDS: DIVALPROEX ER 500 MG TAB.ER.24H PO SCH (20:31)
[2020-03-03 23:12] VITALS: BP 96/61
[2020-03-04 05:55] VITALS: BP 101/49
[2020-03-04] MEDS: MULTIVITAMIN with MINERAL TABLET. PO SCH (07:51)
[2020-03-04] MEDS: MIDODRINE 5 MG TABLET PO SCH ×2 (07:51→17:00)
[2020-03-04] MEDS: PANTOPRAZOLE 40 MG TABLET. PO SCH (07:51)
[2020-03-04] MEDS: FLUoxetine HCL 20 MG CAPSULE PO SCH (07:51)
[2020-03-04] MEDS: busPIRone 5 MG TABLET. PO SCH ×2 (07:51→16:00)
[2020-03-04] MEDS: CHOLECALCIFEROL (VITAMIN D3) 1,000 UNIT TABLET PO SCH (07:52)
[2020-03-04] MEDS: ASPIRIN ENTERIC COATED 81 MG TABLET.DR. PO SCH (07:52)
[2020-03-04] MEDS: THIAMINE 100 MG TABLET. PO SCH (07:52)
[2020-03-04] MEDS: buPROPion XL 300 MG TAB.ER.24H. PO SCH (08:01)
--- NOTE | 2020-03-04 08:58 | PN ---
DATE: 03/04/2020 ATTENDING PHYSICIAN: Mitzi Nelson MD SUBJECTIVE: The patient is calm. She is ambulating independently. She does not require supplemental oxygen. She has adequate saturation on room air. She is a little hot due to the thermostat not working in her room. Otherwise, she has no other complaints. OBJECTIVE FINDINGS: VITAL SIGNS: Her blood pressure today is 101/49, her pulse is 83 and regular. She was afebrile and her oxygen saturation adequate on room air at 93%. HEENT: Head is without trauma. Pupils are reactive. Sclerae nonicteric. The oropharynx clear. NECK: Supple, no bruits. LUNGS: Otherwise clear. CARDIOVASCULAR: Showed regular heart tones. No obvious gallops. Peripheral pulses are palpable and full. ABDOMEN: Soft, nontender, no guarding, rebound tenderness. EXTREMITIES: Showed no cyanosis or edema. NEUROLOGIC: Pleasantly confused. She has no focal deficits. Speech is fluent. LABORATORY STUDIES: Yesterday was reviewed. ASSESSMENT: 1. A 69-year-old female with acute hypoxemic respiratory failure, resolved. The COVID-19 PCR test is negative. 2. Schizoaffective disorder. 3. Bipolar disorder. 4. Dementia with behavioral disturbances. PLAN: 1. No changes on her current scheduled regimen. 2. She needs to be in quarantine until 03/12/2020 before she can return to her facility. ERCI SANDERS MD DR: RADHA/minnie JOB#: [id number] / [id number] MITZI Umana MD
[2020-03-04 17:13] VITALS: BP 113/60
[2020-03-04 19:08] VITALS: BP 104/50
[2020-03-04] MEDS: DIVALPROEX ER 500 MG TAB.ER.24H PO SCH (20:52)
[2020-03-04] MEDS: cloZAPine 100 MG TABLET PO SCH (20:52)
[2020-03-05] MEDS: traZODone 50 MG TABLET. PO PRN (00:12)
[2020-03-05 05:49] VITALS: BP 106/55
[2020-03-05] MEDS: CHOLECALCIFEROL (VITAMIN D3) 1,000 UNIT TABLET PO SCH (07:47)
[2020-03-05] MEDS: THIAMINE 100 MG TABLET. PO SCH (07:48)
[2020-03-05] MEDS: FLUoxetine HCL 20 MG CAPSULE PO SCH (07:48)
[2020-03-05] MEDS: MIDODRINE 5 MG TABLET PO SCH ×2 (07:48→17:11)
[2020-03-05] MEDS: MULTIVITAMIN with MINERAL TABLET. PO SCH (07:48)
[2020-03-05] MEDS: PANTOPRAZOLE 40 MG TABLET. PO SCH (07:48)
[2020-03-05] MEDS: ASPIRIN ENTERIC COATED 81 MG TABLET.DR. PO SCH (07:48)
[2020-03-05] MEDS: buPROPion XL 300 MG TAB.ER.24H. PO SCH (07:50)
[2020-03-05] MEDS: busPIRone 5 MG TABLET. PO SCH ×2 (07:54→17:11)
--- NOTE | 2020-03-05 08:43 | PN ---
DATE: 03/05/2020 ATTENDING PHYSICIANS: Dr. Nelson, Dr. Sanders. SUBJECTIVE: No complaints. The patient is calm. She is getting around in her room independently. She does not require any supplemental oxygen. She is eating breakfast with a fair appetite. OBJECTIVE FINDINGS: VITAL SIGNS: Indicate that she is afebrile. Her temperature is 97.9 degrees Fahrenheit, blood pressure is 106/55, pulse is 79 and regular and oxygen saturation adequate at 95%. HEENT: Head is without trauma. Pupils are reactive. Sclerae nonicteric. Oropharynx is clear without any lesions. NECK: Supple, no bruits. LUNGS: Otherwise clear to auscultation. CARDIOVASCULAR: Showed regular heart tones. No obvious gallops. Peripheral pulses are palpable and full. ABDOMEN: Soft, scaphoid, nontender. Normal bowel sounds. EXTREMITIES: Showed no cyanosis or edema. NEUROLOGIC: Pleasantly confused. No focal deficits. Speech is fluent. ASSESSMENT: 1. A 69-year-old female with acute hypoxemic respiratory failure, resolved. Her COVID-19 PCR test is negative. 2. Schizoaffective disorder, stable. 3. Bipolar disorder. 4. Dementia with behavioral disturbances, calm. PLAN: 1. I reviewed her meds. No changes at this time. 2. She needs to be in quarantine until 03/12/2020 before she can return to her facility. ERIC SANDERS MD DR: RADHA/minnie JOB#: [id number] / [id number]
[2020-03-05 10:58] VITALS: BP 106/52
[2020-03-05 17:50] VITALS: BP 102/65
[2020-03-05] MEDS: cloZAPine 100 MG TABLET PO SCH (20:25)
[2020-03-05] MEDS: DIVALPROEX ER 500 MG TAB.ER.24H PO SCH (20:25)
[2020-03-06 05:45] VITALS: BP 96/59
[2020-03-06] MEDS: MIDODRINE 5 MG TABLET PO SCH ×2 (08:29→17:11)
[2020-03-06] MEDS: CHOLECALCIFEROL (VITAMIN D3) 1,000 UNIT TABLET PO SCH (08:29)
[2020-03-06] MEDS: busPIRone 5 MG TABLET. PO SCH ×2 (08:29→17:02)
[2020-03-06] MEDS: THIAMINE 100 MG TABLET. PO SCH (08:29)
[2020-03-06] MEDS: MULTIVITAMIN with MINERAL TABLET. PO SCH (08:34)
[2020-03-06] MEDS: PANTOPRAZOLE 40 MG TABLET. PO SCH (08:34)
[2020-03-06] MEDS: FLUoxetine HCL 20 MG CAPSULE PO SCH (08:34)
[2020-03-06] MEDS: ASPIRIN ENTERIC COATED 81 MG TABLET.DR. PO SCH (08:34)
[2020-03-06] MEDS: buPROPion XL 300 MG TAB.ER.24H. PO SCH (08:34)
--- NOTE | 2020-03-06 09:58 | PN ---
DATE: 03/06/2020 ATTENDING PHYSICIAN: Dr. Mitzi Nelson. SUBJECTIVE: The patient is comfortable. She is eating her breakfast. Appetite is good. She denied any pain, shortness of breath or nausea. OBJECTIVE FINDINGS: VITAL SIGNS: Her blood pressure today is 96/59 with a pulse of 85 and regular, temperature 97.4 degrees Fahrenheit, oxygen saturation 92% on room air. HEENT: Head is without trauma. Pupils are reactive. Sclerae are nonicteric. Oropharynx is clear. NECK: Supple, no bruits. LUNGS: Otherwise clear. CARDIOVASCULAR: Showed regular heart tones. No obvious gallops. ABDOMEN: Soft, good bowel sounds. EXTREMITIES: Showed no cyanosis or edema. NEUROLOGIC: The patient remains pleasantly confused, but she is not agitated. Her speech is fluent. She has no focal deficit. She is ambulating with minimal assistance. ASSESSMENT: 1. A 69-year-old female with acute hypoxemic respiratory failure, resolved, COVID-19 PCR test is negative. 2. Schizoaffective disorder, stable. 3. Bipolar disorder, stable. 4. Dementia with behavior disturbances, calm right now. PLAN: 1. I reviewed her medications. We will continue her current regimen. They have been simplified. 2. She needs to be in quarantine until 03/12/2020 before she can return to her extended care facility. ERIC SANDERS MD DR: RADHA/minnie JOB#: [id number] / [id number]
[2020-03-06 17:13] VITALS: BP 101/57
[2020-03-06] MEDS: traZODone 50 MG TABLET. PO PRN (20:33)
[2020-03-06] MEDS: cloZAPine 100 MG TABLET PO SCH (20:33)
[2020-03-06] MEDS: DIVALPROEX ER 500 MG TAB.ER.24H PO SCH (20:33)
[2020-03-07 06:30] VITALS: BP 111/60
[2020-03-07] MEDS: MULTIVITAMIN with MINERAL TABLET. PO SCH (07:55)
[2020-03-07] MEDS: ASPIRIN ENTERIC COATED 81 MG TABLET.DR. PO SCH (07:56)
[2020-03-07] MEDS: buPROPion XL 300 MG TAB.ER.24H. PO SCH (07:56)
[2020-03-07] MEDS: busPIRone 5 MG TABLET. PO SCH ×2 (07:56→17:19)
[2020-03-07] MEDS: MIDODRINE 5 MG TABLET PO SCH ×2 (07:57→17:19)
[2020-03-07] MEDS: FLUoxetine HCL 20 MG CAPSULE PO SCH (07:58)
[2020-03-07] MEDS: THIAMINE 100 MG TABLET. PO SCH (07:58)
[2020-03-07] MEDS: CHOLECALCIFEROL (VITAMIN D3) 1,000 UNIT TABLET PO SCH (07:58)
[2020-03-07] MEDS: PANTOPRAZOLE 40 MG TABLET. PO SCH (07:59)
--- NOTE | 2020-03-07 08:33 | PN ---
DATE: 03/07/2020 ATTENDING PHYSICIAN: Dr. Nelson and Dr. Sanders. SUBJECTIVE: No new complaints. She is comfortable. She is ambulating without any assistance. She denies any pain or dyspnea. No fever. OBJECTIVE FINDINGS: VITAL SIGNS: Today, her temperature is 97.9 degrees Fahrenheit, blood pressure is 118 systolic, pulse rate is normal, and oxygen saturation is 93% on room air. HEENT: Head is without trauma. Pupils are reactive. Oropharynx is clear. NECK: Supple. LUNGS: Clear to auscultation. CARDIOVASCULAR: Showed regular heart tones. No obvious gallops or murmurs. Peripheral pulses are palpable and full. ABDOMEN: Soft. No guarding or rebound tenderness. Good bowel sounds. EXTREMITIES: Showed no cyanosis or edema. NEUROLOGIC: The patient is pleasantly confused. She is not agitated. She responds to questions appropriately. She has limited insight into what is going on. ASSESSMENT: 1. A 69-year-old female with acute hypoxemic respiratory failure, resolved. She is COVID-19 PCR negative so far. 2. Longstanding schizoaffective disorder, stable on current regimen. 3. Bipolar disorder, stable. 4. Dementia with behavior disturbances. Currently, she is quite calm. PLAN: 1. I reviewed her medications again. We will continue the scheduled regimen. 2. She needs to remain quarantined until 03/12/2020 before she can return to her extended care facility. 3. Diet as tolerated. ERIC SANDERS MD DR: RADHA/minnie JOB#: [id number] / [id number] JONATAN Umana MD
[2020-03-07 09:10] VITALS: BP 110/68
[2020-03-07 11:52] VITALS: BP 106/63
[2020-03-07 19:12] VITALS: BP 102/58
[2020-03-07] MEDS: DIVALPROEX ER 500 MG TAB.ER.24H PO SCH (21:10)
[2020-03-07] MEDS: cloZAPine 100 MG TABLET PO SCH (21:11)
[2020-03-07 22:00] VITALS: BP 117/70
[2020-03-08 05:35] VITALS: BP 105/67
[2020-03-08] MEDS: FLUoxetine HCL 20 MG CAPSULE PO SCH (07:20)
[2020-03-08] MEDS: PANTOPRAZOLE 40 MG TABLET. PO SCH (07:21)
[2020-03-08] MEDS: CHOLECALCIFEROL (VITAMIN D3) 1,000 UNIT TABLET PO SCH (07:21)
[2020-03-08] MEDS: MIDODRINE 5 MG TABLET PO SCH ×2 (07:21→16:55)
[2020-03-08] MEDS: MULTIVITAMIN with MINERAL TABLET. PO SCH (07:21)
[2020-03-08] MEDS: busPIRone 5 MG TABLET. PO SCH ×2 (07:21→16:55)
[2020-03-08] MEDS: THIAMINE 100 MG TABLET. PO SCH (07:21)
[2020-03-08] MEDS: ASPIRIN ENTERIC COATED 81 MG TABLET.DR. PO SCH (07:22)
[2020-03-08] MEDS: buPROPion XL 300 MG TAB.ER.24H. PO SCH (07:23)
--- NOTE | 2020-03-08 09:24 | PN ---
DATE: 03/08/2020 ATTENDING PHYSICIAN: Dr. Nelson. SUBJECTIVE: No new complaints. She wants to go home. She says she is ready for discharge. I had a nice discussion with her. She states that prior to going to the [place] [facility], she stayed with her son. She gave me his name and what he does; however, in looking on her chart and database, I do not find any listings for this son. There is a name of a guardian and a phone number, which has been disconnected. This may be true, but in reality, I cannot get a hold of anybody. The particular [place] [facility] from whence she came has set guidelines that they want a quarantine until March 12. OBJECTIVE FINDINGS: VITAL SIGNS: Her temperature is normal. She has a blood pressure of 105/67, her oxygen saturations are normal on room air, temperature is 97.8 degrees Fahrenheit. HEENT: Head is without trauma. The pupils are reactive. The sclerae are nonicteric. The oropharynx is clear. NECK: Supple. LUNGS: Actually clear to auscultation. CARDIOVASCULAR: Showed regular heart tones, no gallops. ABDOMEN: Soft, nontender. No organomegaly. Bowel sounds are normoactive. EXTREMITIES: Showed no signs of cyanosis or edema. NEUROLOGIC FINDINGS: The patient is calm, alert. She has no focal deficit. She is pleasantly confused. ASSESSMENT: 1. A 69-year-old female with hypoxemic respiratory failure. COVID-19 negative so far. 2. Longstanding schizoaffective disorder. 3. Bipolar disorder. 4. Dementia with cognitive deficits and behavior disturbances. PLAN: 1. Continue current regimen. 2. We are waiting for placement at the [facility]. 3. No new followup tests or x-rays are necessary. 4. Followup CBC in the morning. ERIC SADNERS MD DR: RADHA/minnie JOB#: [id number] / [id number]
[2020-03-08 14:44] VITALS: BP 116/72
[2020-03-08 19:04] VITALS: BP 98/61
[2020-03-08] MEDS: cloZAPine 100 MG TABLET PO SCH (20:18)
[2020-03-08] MEDS: DIVALPROEX ER 500 MG TAB.ER.24H PO SCH (20:19)
[2020-03-09 05:41] VITALS: BP 101/62
[2020-03-09 06:01] LABS: BASO % 1 % (0-3); EOS # 0.2 x10^3/uL (0.0-0.7); EOS % 5 % (0-3); HEMATOCRIT 37.1 % (36.0-47.0); HEMOGLOBIN 12.1 g/dL (12.0-15.5); LYMPH # 1.7 x10^3/uL (1.0-4.8); LYMPH % 32 % (24-48); MEAN CORPUSCULAR HEMOGLOBIN 31 pg (25-35); MEAN CORPUSCULAR HGB CONC 33 g/dL (31-37); MEAN CORPUSCULAR VOLUME 95 fL (79-100); MONO # 0.6 x10^3/uL (0.0-1.1); MONO % 11 % (0-9); NEUT # 2.7 x10^3uL (1.8-7.7); NEUT % 51 % (31-73); PLATELET COUNT 294 x10^3/uL (140-400); RED BLOOD COUNT 3.89 x10^6/uL (3.50-5.40); RED CELL DISTRIBUTION WIDTH 17.2 % (11.5-14.5); WHITE BLOOD COUNT 5.3 x10^3/uL (4.0-11.0)
[2020-03-09] MEDS: busPIRone 5 MG TABLET. PO SCH ×2 (07:55→16:54)
[2020-03-09] MEDS: PANTOPRAZOLE 40 MG TABLET. PO SCH (07:55)
[2020-03-09] MEDS: FLUoxetine HCL 20 MG CAPSULE PO SCH (07:55)
[2020-03-09] MEDS: CHOLECALCIFEROL (VITAMIN D3) 1,000 UNIT TABLET PO SCH (07:55)
[2020-03-09] MEDS: MIDODRINE 5 MG TABLET PO SCH ×2 (07:56→16:54)
[2020-03-09] MEDS: THIAMINE 100 MG TABLET. PO SCH (07:56)
[2020-03-09] MEDS: ASPIRIN ENTERIC COATED 81 MG TABLET.DR. PO SCH (07:56)
[2020-03-09] MEDS: buPROPion XL 300 MG TAB.ER.24H. PO SCH (07:56)
[2020-03-09] MEDS: MULTIVITAMIN with MINERAL TABLET. PO SCH (07:56)
--- NOTE | 2020-03-09 09:36 | PN ---
DATE: 03/09/2020 ATTENDING PHYSICIAN: Mitzi Nelson MD SUBJECTIVE: No new complaints. She is very calm. She is eating all of her meals. She denied any dyspnea or pain. OBJECTIVE FINDINGS: VITAL SIGNS: Temperature this morning was 97.7 degrees Fahrenheit, blood pressure is 101/62, pulse 81 and regular, oxygen saturation 92% on room air. HEENT: Head is without trauma. Pupils are reactive. Sclerae nonicteric. Oropharynx clear. NECK: Supple, no bruits identified. LUNGS: Otherwise clear. CARDIOVASCULAR: Showed regular heart tones. ABDOMEN: Soft. EXTREMITIES: Showed no edema or cyanosis. NEUROLOGIC: Alert, pleasantly confused. She has no focal deficits. ASSESSMENT: A 69-year-old female with: 1. Hypoxemic respiratory failure, COVID-19 negative. 2. Longstanding schizoaffective disorder. 3. Bipolar disorder, stable. 4. Dementia with cognitive defects. PLAN: 1. Continue current regimen. 2. Placement in a shelter slated for 03/12/2020. At this time, no followup tests or x-rays are deemed necessary. ERIC SANDERS MD DR: RADHA/minnie JOB#: [id number] / [id number]
[2020-03-09 15:23] VITALS: BP 105/66
[2020-03-09] MEDS: DIVALPROEX ER 500 MG TAB.ER.24H PO SCH (20:08)
[2020-03-09] MEDS: traZODone 50 MG TABLET. PO PRN (20:09)
[2020-03-09] MEDS: cloZAPine 100 MG TABLET PO SCH (20:09)
[2020-03-09 20:15] VITALS: BP 112/59
[2020-03-10] MEDS: PANTOPRAZOLE 40 MG TABLET. PO SCH (07:30)
[2020-03-10] MEDS: busPIRone 5 MG TABLET. PO SCH ×2 (07:31→16:54)
[2020-03-10] MEDS: THIAMINE 100 MG TABLET. PO SCH (07:31)
[2020-03-10] MEDS: buPROPion XL 300 MG TAB.ER.24H. PO SCH (07:31)
[2020-03-10] MEDS: CHOLECALCIFEROL (VITAMIN D3) 1,000 UNIT TABLET PO SCH (07:31)
[2020-03-10] MEDS: MIDODRINE 5 MG TABLET PO SCH ×2 (07:31→16:55)
[2020-03-10] MEDS: MULTIVITAMIN with MINERAL TABLET. PO SCH (07:31)
[2020-03-10] MEDS: ASPIRIN ENTERIC COATED 81 MG TABLET.DR. PO SCH (07:31)
[2020-03-10] MEDS: FLUoxetine HCL 20 MG CAPSULE PO SCH (07:31)
[2020-03-10 08:09] VITALS: BP 103/49
--- NOTE | 2020-03-10 09:30 | PN ---
DATE: 03/10/2020 ATTENDING PHYSICIAN: Dr. Nelson. SUBJECTIVE: No complaints. She is very calm. She is eating all her breakfast. Denied any fevers, chills, cough or congestion. OBJECTIVE FINDINGS: VITAL SIGNS: She is quite comfortable. Her respiratory status is stable. Oxygen level 91% on room air, temperature 98.2 degrees Fahrenheit, blood pressure is 103/49 with a pulse of 79 and regular. HEENT: Head is without trauma. Pupils are reactive. Sclerae nonicteric. Oropharynx clear. NECK: Supple, no bruits. LUNGS: Otherwise clear. CARDIOVASCULAR: Showed regular heart tones. No gallops. ABDOMEN: Soft, nontender. EXTREMITIES: Showed no cyanosis or edema. NEUROLOGIC: Focally intact. Speech is fluent. The patient is very appropriate. She is less disoriented today. ASSESSMENT: 1. A 69-year-old female with hypoxemic respiratory failure, stable, COVID-19, coronavirus negative. 2. Longstanding schizoaffective disorder. 3. Bipolar disorder, stable. 4. Dementia with cognitive defects and some behavioral issues in the past. PLAN: 1. Continue current regimen. 2. Tentative plans for discharge to her [facility], 03/12/2020 due to their quarantine. ERIC SANDERS MD DR: RADHA/minnie JOB#: [id number] / [id number] JONATAN Umana MD
[2020-03-10 20:00] VITALS: BP 101/58
[2020-03-10] MEDS: DIVALPROEX ER 500 MG TAB.ER.24H PO SCH (20:04)
[2020-03-10] MEDS: traZODone 50 MG TABLET. PO PRN (20:04)
[2020-03-10] MEDS: cloZAPine 100 MG TABLET PO SCH (20:05)
[2020-03-11 07:48] VITALS: BP 99/59
[2020-03-11] MEDS: PANTOPRAZOLE 40 MG TABLET. PO SCH (07:49)
[2020-03-11] MEDS: MIDODRINE 5 MG TABLET PO SCH ×2 (07:49→16:23)
[2020-03-11] MEDS: busPIRone 5 MG TABLET. PO SCH ×2 (07:49→16:23)
[2020-03-11] MEDS: CHOLECALCIFEROL (VITAMIN D3) 1,000 UNIT TABLET PO SCH (07:50)
[2020-03-11] MEDS: ASPIRIN ENTERIC COATED 81 MG TABLET.DR. PO SCH (07:50)
[2020-03-11] MEDS: MULTIVITAMIN with MINERAL TABLET. PO SCH (07:50)
[2020-03-11] MEDS: THIAMINE 100 MG TABLET. PO SCH (07:50)
[2020-03-11] MEDS: FLUoxetine HCL 20 MG CAPSULE PO SCH (07:50)
[2020-03-11] MEDS: buPROPion XL 300 MG TAB.ER.24H. PO SCH (07:51)
--- NOTE | 2020-03-11 17:16 | PN ---
DATE: 03/11/2020 SUBJECTIVE: The patient is sitting at the edge of the bed comfortably in no apparent distress. On questioning her, denied any complaint. The nursing staff did not voice any concern. She apparently has had her COVID-19 by PCR done twice and both times were negative. She is scheduled to be discharged back to her intermediate facility. PHYSICAL EXAMINATION: GENERAL: When I examined her this afternoon, she looked well and was clearly in no apparent respiratory distress. No pallor, jaundice, cyanosis or thyromegaly. No jugular venous distention. No lower limb edema. VITAL SIGNS: Her heart rate was 85, blood pressure was 99/59, temperature 97.8, respiratory rate was 18, and oxygen saturation was 92% on room air. HEAD, EYES, EARS, NOSE AND THROAT: Showed normocephalic, atraumatic. NECK: Supple. HEART: Showed normal first and second heart sounds. No gallop or murmur. CHEST: Clear to auscultation. No crepitation or rhonchi. ABDOMEN: Distended, soft, nontender. No guarding or rigidity. No organomegaly. All hernial orifice intact. Bowel sounds normal. NEUROLOGIC: She was awake, alert, responding appropriately. All cranial nerves are intact. She moves extremities without difficulty. She ambulates without assistance or assistive devices. ASSESSMENT: 1. This is a 69-year-old female with hypoxic respiratory failure, stable, her COVID-19 coronavirus test negative twice. 2. Longstanding Schizoaffective disorder. 3. Bipolar disorder, stable. 4. Dementia with cognitive deficit and some behavioral issues in the past. PLAN: To continue with current regimen. There is a plan for her to be discharged tomorrow, 03/12/2020. JONATAN VALVERDE MD DR: SHMUEL/minnie JOB#: [id number] / [id number]
[2020-03-11 19:30] VITALS: BP 108/61
[2020-03-11] MEDS: DIVALPROEX ER 500 MG TAB.ER.24H PO SCH (20:38)
[2020-03-11] MEDS: cloZAPine 100 MG TABLET PO SCH (20:39)
[2020-03-11] MEDS: traZODone 50 MG TABLET. PO PRN (20:39)
[2020-03-12 06:31] VITALS: BP 113/68
[2020-03-12] MEDS: PANTOPRAZOLE 40 MG TABLET. PO SCH (07:45)
[2020-03-12 07:46] VITALS: BP 113/68
[2020-03-12] MEDS: MIDODRINE 5 MG TABLET PO SCH (07:46)
[2020-03-12] MEDS: FLUoxetine HCL 20 MG CAPSULE PO SCH (07:47)
[2020-03-12] MEDS: THIAMINE 100 MG TABLET. PO SCH (07:47)
[2020-03-12] MEDS: ASPIRIN ENTERIC COATED 81 MG TABLET.DR. PO SCH (07:47)
[2020-03-12] MEDS: MULTIVITAMIN with MINERAL TABLET. PO SCH (07:47)
[2020-03-12] MEDS: busPIRone 5 MG TABLET. PO SCH (07:47)
[2020-03-12] MEDS: CHOLECALCIFEROL (VITAMIN D3) 1,000 UNIT TABLET PO SCH (07:48)
[2020-03-12] MEDS: buPROPion XL 300 MG TAB.ER.24H. PO SCH (07:48)
--- NOTE | 2020-03-12 11:26 | DS ---
DATE OF DISCHARGE: 03/12/2020 HOSPITAL COURSE: The patient is a 69-year-old female patient who was basically originally transferred from [facility] as the patient was found to be hypoxic, requiring 3 liters of oxygen, to bring her oxygen saturation at around 90%. She was wheezing, complaining of tiredness and somewhat hypotensive, and therefore, she was put in a temporary isolation, hourly monitoring of symptoms and a decision was made to transfer her down to the ICU. She was swabbed for COVID-19. The patient herself does not give any useful information. Given that there are other residents tested positive, a decision was made to transfer her to ICU and await the result of the test. She actually was tested twice and both times her COVID-19 by PCR was negative. She completed her quarantine and was discharged to [facility]. PHYSICAL EXAMINATION: GENERAL: When I saw her today, she looked well and was clearly in no apparent respiratory distress. She was sitting at the edge of the bed. There is no pallor, jaundice, cyanosis or thyromegaly. No jugular venous distension. No lower limb edema. VITAL SIGNS: Her heart rate was 85, blood pressure was 113/68, temperature 97.9, respiratory rate was 16, and oxygen saturation was 93% on room air. The rest of clinical exam is stable. LABORATORY DATA: Her most recent lab work showed her white cell count was 5300, hemoglobin 12, hematocrit 37, MCV 95, and platelet count 294,000. Her chemistry showed a serum sodium 140, potassium 3.9, chloride 105, bicarbonate 30, anion gap of 5, BUN 17, creatinine 0.5, estimated GFR was 122 mL per minute. Her glucose was 89, calcium was 9.1. Total bilirubin, AST, ALT, alkaline phosphatase were normal. Total protein 7.6, albumin 2.9. DISCHARGE MEDICATIONS: She was discharged to continue on ondansetron 4 mg every 8 hours, Protonix 40 mg daily, Mylanta Plus 30 mL every 4 hours, thiamine 100 mg once a day, multivitamin 1 tablet once a day, fluoxetine for Prozac 20 mg once a day, vitamin D 2000 units daily, buspirone 5 mg twice a day, Wellbutrin 300 mg daily, aspirin 81 mg once a day, midodrine 10 mg twice a day, divalproex sodium 1500 mg at bedtime, clozapine 150 mg at bedtime, milk of magnesia 30 mL p.o. daily p.r.n. for constipation and trazodone 50 mg at bedtime for insomnia. FINAL DISCHARGE DIAGNOSES: 1. Acute hypoxic respiratory failure, stable. Her COVID-19 and coronavirus are tested negative twice. 2. Longstanding schizoaffective disorder. 3. Bipolar disorder, stable. 4. Dementia with cognitive deficit and some behavioral issues in the past. JONATAN VALVERDE MD DR: SHMUEL/minnie JOB#: [id number] / [id number]
== END 2020-03-12 11:50 | DRG 189 ==
LOC: ICU 15:30 → 1 SOUTH 02-27 15:20
PROVIDERS: ADMIT Internal Medicine; ATTEND Internal Medicine
DX: J96.21 Acute and chronic respiratory failure with hypoxia (principal); F03.91 Unspecified dementia, unspecified severity, with behavioral disturbance; F25.9 Schizoaffective disorder, unspecified; F31.9 Bipolar disorder, unspecified; Z87.19 Personal history of other diseases of the digestive system; Z88.5 Allergy status to narcotic agent; Z88.8 Allergy status to other drugs, medicaments and biological substances; Z91.018 Allergy to other foods; Z03.818 Encounter for observation for suspected exposure to other biological agents ruled out
CPT/HCPCS: 36415; 80053; 82947; 83605; 85025; 85027; 85651; 87635; J0456; 97530